=== PATIENT | female | born 1965 | race Caucasian/White ===

== ENCOUNTER 2018-05-26 21:26 | Emergency (ER) | payer BC, SELFPAY ==
[2018-05-26 21:33] VITALS: BP 139/94; PULSE 91; RESP 14; TEMP 36.3; O2SAT 98; BMI 28.3
--- NOTE | 2018-05-26 21:36 | DI.RAD.S_ITS ---
PROCEDURE: XR FINGER LT MIN 2V INDICATIONS: fall TECHNIQUE: AP hand, 2 views of the ring finger(s) acquired. COMPARISON: None. FINDINGS: Bones: Comminuted, articulating fracture base of the fourth middle phalanx. Mild displacement of the dorsal fracture fragment. No suspicious bony lesions. Soft tissues: No suspicious soft tissue calcifications. IMPRESSION: Fracture base fourth middle phalanx articulating with the PIP joint. Dictated by: Matt Sunshine M.D. on 05/27/2018 at 7:59 Approved by: Matt Sunshine M.D. on 05/27/2018 at 8:02
--- NOTE | 2018-05-26 21:37 | DI.RAD.S_ITS ---
PROCEDURE: XR ANKLE LT MIN 3V INDICATIONS: fall TECHNIQUE: 3 views of the ankle were acquired. COMPARISON: None. FINDINGS: Bones: Nondisplaced spiral fracture distal fibula. Nondisplaced transverse fracture base of the medial malleolus. The posterior malleolus is not well seen but no fracture is obvious. Ankle mortise is normally aligned. No suspicious bony lesions. Soft tissues: Bilateral soft tissue swelling. No tibiotalar joint effusion. Achilles tendon appears normal. IMPRESSION: Nondisplaced bimalleolar fracture with soft tissue swelling. Dictated by: Matt Sunshine M.D. on 05/27/2018 at 7:57 Approved by: Matt Sunshine M.D. on 05/27/2018 at 7:59
--- NOTE | 2018-05-27 02:02 | ED.LOWEXIN ---
HPI - Extremity Injury (Lower) General Chief Complaint: Extremity Injury, Lower Stated Complaint: FALL, LEFT ANKLE SWELLING AND PAIN Time Seen by Provider: 05/27/18 01:52 Source: patient Mode of arrival: wheelchair Limitations: no limitations History of Present Illness HPI Narrative: patient is a 52-year-old female who presents with left ankle pain. And left middle finger pain. She fell getting out of her car. She has pain in her ankle laterally and her ring finger is black and blue. She denies any numbness tingling no head injury no other complaints. injury initially happened around 1:00 p.m.. She was weight-bearing but minimally. MD complaint: ankle injury Exacerbating factors: nothing Context: fall Related Data Home Medications Medication Instructions Recorded Confirmed No Known Home Medications 05/26/18 05/26/18 Allergies Allergy/AdvReac Type Severity Reaction Status Date / Time No Known Drug Allergies Allergy Verified 05/26/18 21:36 Review of Systems Review of Systems GENERAL: Denies chills,fever HEENT: Denies throat pain RESPIRATORY: Denies dyspnea, cough, wheezing CARDIOVASCULAR: Denies chest pain, palpitations GASTROINTESTINAL: Denies nausea, vomiting MUSCULOSKELETAL: See HPI SKIN: No rash, no laceration, no pruritus NEUROLOGIC: Denies weakness, dizziness, headache, numbness 8 point review of systems is negative except for those stated above and HPI [facility] Social History Smoking Status: Never smoker Exam Initial Vital Signs Initial Vital Signs: Vital Signs Temperature 97.3 F L 05/26/18 21:33 Pulse Rate 91 H 05/26/18 21:33 Respiratory Rate 14 05/26/18 21:33 Blood Pressure 139/94 H 05/26/18 21:33 Pulse Oximetry 98 05/26/18 21:33 GENERAL: Well-appearing, well-nourished and in no acute distress. CARDIOVASCULAR: peripheral pulses in tact, cap refill <2 sec RESPIRATORY: No respiratory distress, speaks in full sentences without difficulty EXTREMITIES: Normal range of motion, no clubbing or edema. Neurovascularly intact NEUROLOGICAL: Cranial nerves II through XII grossly intact. Normal gait and speech. SKIN: Warm, dry, no petechiae, no rashes or lesions. Extrem Left upper extremity: hand (full range of motion, cap refill <2 seconds) Details: ecchymosis Location: of the 4th digit Location: at the middle phalanx and at the distal phalanx Left lower extremity: ankle ( pulse intact) Details: tenderness Location: of the lateral malleolus ( More lateral than medial) and of the medial malleolus and swelling ( minimal swelling); no lacerations, no ecchymosis and achilles tendon exam normal Procedures Orthopedic Splinting/Casting Injury #1: Side: left Lower Extremity Injury Location: ankle Lower Extremity Immobilizer: posterior splint and stirrup splint Additional Comments: splint was applied by 1st nurse and supervised by me neurovascularly intact after. Injury #2: Upper Extremity Injury Location: finger Upper Extremity Immobilizer: aluminum form splint ( Finger splint) Course Orders Ordered: ED Orders 05/26/18 21:36 XR finger LT min 2V Stat 05/26/18 21:37 XR ankle LT min 3V Stat Discontinued Medications Hydrocodone Bitart/Acetaminophen (Vicodin Prepack) 1 bottle MISC SEEINSTR ONE Stop: 05/27/18 03:04 Last Admin: 05/27/18 03:21 Dose: 1 bottle Vital Signs - 8 hr 05/27/18 03:45 Temperature 97.6 F Pulse Rate 65 Respiratory Rate 18 Blood Pressure 144/93 H Pulse Oximetry 93 MDM - Extremity Injury (Lower) Imaging Data left ankle x-ray: Attestation: I personally reviewed and interpreted this imaging study as follows: My impression: comminuted distal fibular fracture with minimal displacement, small medial malleoli fracture mortise stable left 4th finger x-ray: Attestation: I personally reviewed and interpreted this imaging study as follows: My impression: fracture at the PIP with minimal displacement Discharge Plan Departure Patient Disposition: Home, Self-Care Clinical Impression: Ankle fracture, left Discharge Date/Time: 05/27/18 03:15 Interventions: ED Discharge Assessment Last Done: 05/27/18 03:45 Instructions: Ankle Fracture Activity Restrictions/Additional Instructions: *You have been diagnosed with left ankle and finger fracture *What to do: no weight-bearing on left foot, keep the splint on at all times, elevate, ice *Continue to take medications as directed 1 and [place] every 6 hr if needed for severe pain *Follow up with your primary care provider in 2-3 days, call Orthopedics tomorrow to schedule appointment this week *Return to ER if you should have numbness, tingling, increased pain or any new, worsening or concerning symptomse follow-up appoint CONTROLLED SUBSTANCE DISCHARGE (Narcotoic/benzodiazepine/Flexeril/Phenergan) 1. You have been prescribed narcotic medications, it does have acetaminophen/Tylenol/paracetamol in it so do not take extra Tylenol or Tylenol containing products 2. Please understand that we cannot provide further refills of narcotics, benzodiazepines or controlled substances through the ED and her pain management will need to be through your provider. 3. While on these medications you cannot drive or operate heavy machinery. 4. You cannot sign legal documents or perform any duties such as this. 5. As long as you're taking opiate pain medications he should also be taking a stool softener such as Colace, Dulcolax, MiraLAX or prune juice, to help avoid constipation. Prescriptions: No Action No Known Home Medications RF: 0 Referrals: [facility] [Provider Group]
[2018-05-27] MEDS: HYDROCODONE/ACET 5/325 PREPACK 1 BOTTLE MISC (03:21)
[2018-05-27 03:45] VITALS: BP 144/93; PULSE 65; RESP 18; TEMP 36.4; O2SAT 93
== END 2018-05-27 03:15 | disposition home or self-care (01) ==
PROVIDERS: Emergency Provider Emergency Medicine
DX: S82.892A Other fracture of left lower leg, initial encounter for closed fracture (principal); W17.89XA Other fall from one level to another, initial encounter
CPT/HCPCS: 73140; 73610; 99282; 99284

== ENCOUNTER 2021-02-23 16:44 | Inpatient (IN) | payer BC, SELFPAY ==
[2021-02-23] VITALS (7 sets, daily range): BP systolic 133–176; BP diastolic 66–92; PULSE 57–72; RESP 15–19; TEMP 36.6–37.6; O2SAT 88–96; BMI 28.7; BMI 29.7
[2021-02-23 17:31] LABS: Add Manual Diff / Slide Review NO; Basophils Absolute Auto 0 /uL (0-100); Basophils Percent Auto 0.3 % (0-2); Eosinophils Absolute Auto 0 /uL (0-450); Eosinophils Percent Auto 0.1 % (2-4); Hematocrit 44.2 % (36-46); Hemoglobin 14.8 g/dL (12.0-16.0); Lymphocytes Absolute Auto 700 /uL (1100-4500); Lymphocytes Percent Auto 5.8 % (25-40); Mean Corpuscular HGB Conc 33.4 % (30-36); Mean Corpuscular Hemoglobin 30.6 PG (26-34); Mean Corpuscular Volume 91.5 fL (80-100); Monocytes Absolute Auto 900 /uL (0-900); Monocytes Percent Auto 7.7 % (3-14); Neutrophils Absolute Auto 9900 /uL (1500-7000); Neutrophils Percent Auto 86.1 % (50-75); Platelet Count 202 X10^3/uL (150-400); Red Blood Cell Count 4.83 X10^6/uL (4.0-5.2); Red Cell Distribution Width 13.8 % (11.6-14.8); White Blood Cell Count 11.5 X10^3/uL (4.5-11.0)
[2021-02-23 18:08] LABS: Prothrombin Time 11.9 SECONDS (10.1-12.7)
[2021-02-23 18:11] LABS: PTT Partial Thromboplastin Tim 31 SECONDS (26.4-36.2)
--- NOTE | 2021-02-23 18:31 | ED_ITS ---
HPI - General Adult General Chief complaint: Abdominal Pain Stated complaint: abdominal pains, thinks Appendicitis Time Seen by Provider: 02/23/21 18:00 Source: patient Mode of arrival: Wheelchair Limitations: no limitations History of Present Illness HPI narrative: Patient is a 55-year-old female here for evaluation of approximately 24 hours of bilateral upper abdominal discomfort. She describes it as a cramping/burning/pain sensation. She has had nausea and vomiting. No urinary symptoms. No diarrhea. No recent travel. No recent antibiotics. Has never had anything like this in the past. Has not tried anything for symptoms prior to arrival. He is concerned about appendicitis. Related Data Home Medications Medication Instructions Recorded Confirmed No Known Home Medications 05/26/18 05/26/18 Allergies Allergy/AdvReac Type Severity Reaction Status Date / Time No Known Drug Allergies Allergy Verified 02/23/21 16:51 Review of Systems Constitutional Constitutional: Denies fatigue, Denies fever(s) and Denies headache(s) Eyes Eyes: Denies change in vision ENT Ears, Nose, Mouth, and Throat: Denies headache(s) and Denies sore throat Cardiovascular Cardiovascular: Denies chest pain and Denies dyspnea Respiratory Respiratory: Denies dyspnea Gastrointestinal Gastrointestinal: Reports abdominal pain, Denies change in bowel habits, Denies constipation, Denies diarrhea, Reports nausea and Reports vomiting Genitourinary Genitourinary: Denies dysuria Genitourinary: Denies dysuria and Denies vaginal discharge Musculoskeletal Musculoskeletal: Denies arthralgias and Denies myalgias Integumentary/Breasts Skin/Breast: Denies lesions and Denies rash Neurologic Neurologic: Denies behavioral changes and Denies headache(s) Psychiatric Psychiatric: Denies behavioral changes Endocrine Endocrine: Denies fatigue Hematologic/Lymphatic On Anticoagulants: No Allergic/Immunologic Allergic/Immunologic: Denies urticaria Patient History Medical History Myotonic dystrophy Pneumonia Social History Smoking Status: Never smoker Smoking Status: Never smoker alcohol intake frequency: holidays/special occasions only Substance Use Type: does not use Exam Initial Vital Signs Initial Vital Signs: Vital Signs Temperature 97.9 F 02/23/21 16:50 Pulse Rate 57 L 02/23/21 16:50 Respiratory Rate 15 02/23/21 16:50 Blood Pressure 176/77 H 02/23/21 16:50 Pulse Oximetry 94 02/23/21 16:50 Const General: cooperative, comfortable, well developed and well groomed Limitations: mental status not altered HENGA Head: normal to inspection and normocephalic Eyes General: appearance normal, both eyes and all related structures Resp Effort & Inspection: normal respiratory effort Auscultation: clear to auscultation bilaterally Cardio Rate: regular rate Rhythm: regular rhythm GI Inspection: non-distended Palpation: soft, No guarding and tender (Bilateral upper abdomen) Back/Spine/Pelvis Back: No CVA tenderness Skin Lesions: no lesions Rashes: no rashes Neuro General: patient alert, patient awake and patient oriented x3 Cognition: normal cognition Speech: speech normal Extrem General: normal to inspection and capillary refill normal Psych Appearance: grossly normal and well kempt Scores GCS Pascale coma scale eye opening: Spontaneous Nolan coma scale verbal response: Orientated Nolan coma scale motor response: Obey commands Pascale coma scale total score: 15 Course Orders Ordered: ED Orders 02/23/21 17:00 EKG-12 Lead Stat 02/23/21 17:20 Complete Blood Count AUTO DIFF Stat 02/23/21 17:50 Comprehensive Metabolic Panel Stat Lipase Stat Partial Thromboplastin Time Stat Prothrombin Time INR Stat 02/23/21 18:32 CT abdomen pelvis w con Stat 02/23/21 19:43 Urine Culture Stat Urine Microscopic Stat 02/23/21 20:22 US abdomen limited Stat 02/23/21 22:00 COVID19 - ADMIT ([employer]GER swab/PCR) Stat 02/23/21 22:07 Consult to General Surgery Urgent Sodium Chloride (Normal Saline 0.9%) 1,000 mls @ 125 mls/hr IV CONT FEMI Last Admin: 02/23/21 22:19 Dose: 125 mls/hr Documented by: JANET Morphine Sulfate (Morphine 2 Mg/Ml Inj) 2 mg IV Q4HR PRN PRN Reason: Pain, Mild (1-3) Last Admin: 02/23/21 22:20 Dose: 2 mg Documented by: JANET Ondansetron HCl (Ondansetron 4 Mg/2 Ml Inj) 4 mg IV Q4HR PRN PRN Reason: Nausea And Vomiting Discontinued Medications Sodium Chloride (Normal Saline 0.9%) 1,000 mls @ 1,000 mls/hr IV BOLUS ONE Stop: 02/23/21 19:31 Last Infusion: 02/23/21 20:28 Dose: 0 mls/hr Documented by: Admin: 02/23/21 19:08 Dose: 1,000 mls/hr Documented by: ILDA Piperacillin/Tazobactam/Dextrose (Zosyn) 3.375 gm in 50 mls @ 100 mls/hr IV NOW ONE Stop: 02/23/21 22:36 Last Admin: 02/23/21 22:19 Dose: 100 mls/hr Documented by: JANET Vital Signs Vital signs: Vital Signs - 8 hr 02/23/21 16:50 02/23/21 19:34 02/23/21 20:49 Temperature 97.9 F Pulse Rate 57 L 72 Respiratory Rate 15 Blood Pressure 176/77 H 176/92 H Pulse Oximetry 94 95 88 L 02/23/21 20:51 Temperature Pulse Rate 66 Respiratory Rate Blood Pressure 152/71 H Pulse Oximetry 92 Medical Decision Making Lab Data Lab results reviewed: Yes I reviewed the patient's lab results. Result diagrams: 02/23/21 17:20 02/23/21 17:50 Labs: Lab Results 02/23/21 02/23/21 02/23/21 Range/Units 17:20 17:50 17:50 WBC 11.5 H (4.5-11.0) X10^3/uL RBC 4.83 (4.0-5.2) X10^6/uL Hgb 14.8 (12.0-16.0) g/dL Hct 44.2 (36-46) % MCV 91.5 (80-100) fL MCH 30.6 (26-34) PG MCHC 33.4 (30-36) % RDW 13.8 (11.6-14.8) % Plt Count 202 (150-400) X10^3/uL Neut % (Auto) 86.1 H (50-75) % Lymph % (Auto) 5.8 L (25-40) % [place] % (Auto) 7.7 (3-14) % Eos % (Auto) 0.1 L (2-4) % Baso % (Auto) 0.3 (0-2) % Neut # (Auto) 9900 H (4938-0425) /uL Lymph # (Auto) 700 L (9456-9864) /uL Fountain # (Auto) 900 (0-900) /uL Eos # (Auto) 0 (0-450) /uL Baso # (Auto) 0 (0-100) /uL PT 11.9 (10.1-12.7) SECONDS INR 1.0 (0.9-1.3) APTT 31 (26.4-36.2) SECONDS Sodium 142 (137-145) mmol/L Potassium 3.6 (3.4-5.1) mmol/L Chloride 103 (98-107) mmol/L Carbon Dioxide 33 H (22-32) mmol/L BUN 22 H (7-17) mg/dL Creatinine 0.38 L (0.52-1.04) mg/dL Estimated GFR > 60.0 (>60) mL/min BUN/Creatinine Ratio 57.9 H (6-22) Glucose 123 H (70-100) mg/dL Calcium 10.8 H (8.4-10.2) mg/dL Total Bilirubin 0.7 (0.2-1.3) mg/dL AST 50 H (14-36) IU/L ALT 51 H (<35) IU/L Alkaline Phosphatase 73 (38-126) U/L Total Protein 7.5 (6.3-8.2) g/dL Albumin 4.2 (3.5-5.0) g/dL Globulin 3.3 (1.7-4.1) g/dL Albumin/Globulin Ratio 1.3 (1.0-2.8) Lipase 47 (23-300) U/L Urine RBC (0-5/HPF) Urine WBC (0-5/HPF) Ur Squamous Epith Cells (0-5/HPF) Amorphous Sediment Urine Bacteria (None) Urine Mucus (Negative) Ur Culture Indicated? 02/23/21 Range/Units 19:43 WBC (4.5-11.0) X10^3/uL RBC (4.0-5.2) X10^6/uL Hgb (12.0-16.0) g/dL Hct (36-46) % MCV (80-100) fL MCH (26-34) PG MCHC (30-36) % RDW (11.6-14.8) % Plt Count (150-400) X10^3/uL Neut % (Auto) (50-75) % Lymph % (Auto) (25-40) % [place] % (Auto) (3-14) % Eos % (Auto) (2-4) % Baso % (Auto) (0-2) % Neut # (Auto) (1305-1467) /uL Lymph # (Auto) (8627-4860) /uL [place]ountain # (Auto) (0-900) /uL Eos # (Auto) (0-450) /uL Baso # (Auto) (0-100) /uL PT (10.1-12.7) SECONDS INR (0.9-1.3) APTT (26.4-36.2) SECONDS Sodium (137-145) mmol/L Potassium (3.4-5.1) mmol/L Chloride (98-107) mmol/L Carbon Dioxide (22-32) mmol/L BUN (7-17) mg/dL Creatinine (0.52-1.04) mg/dL Estimated GFR (>60) mL/min BUN/Creatinine Ratio (6-22) Glucose (70-100) mg/dL Calcium (8.4-10.2) mg/dL Total Bilirubin (0.2-1.3) mg/dL AST (14-36) IU/L ALT (<35) IU/L Alkaline Phosphatase (38-126) U/L Total Protein (6.3-8.2) g/dL Albumin (3.5-5.0) g/dL Globulin (1.7-4.1) g/dL Albumin/Globulin Ratio (1.0-2.8) Lipase (23-300) U/L Urine RBC None seen (0-5/HPF) Urine WBC 1-5/hpf (0-5/HPF) Ur Squamous Epith Cells 5-10 /hpf H (0-5/HPF) Amorphous Sediment 1+ Urine Bacteria Moderate (10-30) H (None) Urine Mucus 1+ H (Negative) Ur Culture Indicated? Specimen cultured Point of Care Testing Test Results Negative Urine Dip Bedside Urine Glucose Negative Bedside Urine Bilirubin + 1 Bedside Urine Ketone +/- 5 Urine Specific [place] 1.030 Bedside Urine Occult Blood - Negative Bedside Urine pH 6.0 Bedside Urine Protein - Negative Bedside Urine Urobilinogen +/- 1mg Bedside Urine Nitrite - Negative Bedside Urine Leukocytes - Negative Esterase Point of care testing: Point of Care Testing Test Results Negative Urine Dip Bedside Urine Glucose Negative Bedside Urine Bilirubin + 1 Bedside Urine Ketone +/- 5 Urine Specific [place] 1.030 Bedside Urine Occult Blood - Negative Bedside Urine pH 6.0 Bedside Urine Protein - Negative Bedside Urine Urobilinogen +/- 1mg Bedside Urine Nitrite - Negative Bedside Urine Leukocytes - Negative Esterase Imaging Data CT scan - abdomen/pelvis: Radiologist's Impression: [address] [id number] Scan ReportSigned Patient: Kati Gordon AMR#: [id number]: 1965Acct:[id number]/Sex: 55 / FDate of Service: 02/23/21Loc: EDAccession Number: [id number] Procedure: CT abdomen pelvis w con Ordering Provider: Ernesto Nevarez D.O. PROCEDURE: CT ABDOMEN PELVIS W CON INDICATIONS: Generalized abdominal pain TECHNIQUE: After the administration of intravenous contrast, 5 mm thick sections acquired from the diaphragm to the symphysis. 5 mm coronal and sagittal reformats were acquired. For radiation dose reduction, the following was used: automated exposure control, adjustment of mA and/or kV according to patient size. COMPARISON: CT, PE STUDY (CTA CHEST), 10/31/2015, 3:00. FINDINGS: Image quality: Excellent. ABDOMEN: Lung bases: Lung bases are clear. Heart size is normal. Solid organs: Liver is normal in size and enhancement. Gallbladder is mildly dilated. There is gallbladder wall thickening. Multiple gallstones. Several gallstones at the gallbladder neck. Stranding surrounding the gallbladder. Suspect periportal edema. Biliary system is non dilated. Pancreas enhances normally. Spleen is normal in size and enhancement. Splenic calcified granuloma. No adrenal nodules. Kidneys demonstrate normal size and enhancement, without hydronephrosis. Small simple cysts in the right kidney. Peritoneum and bowel: No small bowel obstruction. Normal appendix. No free fluid or air. Nodes and vessels: No retroperitoneal or mesenteric adenopathy by size criteria. Aorta and inferior vena cava are normal in size. Miscellaneous: Small periumbilical fat containing hernia. PELVIS: Genitourinary: Bladder wall thickness is normal. Fibroid uterus. Miscellaneous: No inguinal hernias or adenopathy. Bones: No suspicious bony lesions. No vertebral body compression fractures. IMPRESSION: 1. Gallbladder wall thickening and surrounding inflammatory change. Multiple gallstones. Findings highly suspicious for acute cholecystis. 2. Normal appendix. No SBO. 3. Nonobstructing left kidney stone. Findings discussed with Dr. Nevarez at time of dictation. Dictated by: Gray Dominguez M.D. on 02/23/2021 at 20:15 Approved by: Gray Dominguez M.D. on 02/23/2021 at 20:55 US - abdomen: Radiologist's Impression: Preliminary read Gallbladder sludge and stones are present. There is gallbladder wall thickening and trace pericholecystic free fluid. This study in conjunction with the CT abdomen/pelvis studies suggest acute cholecystitis. Correlation with physical examination laboratory values is advised. Surgical consultation is advised ECG Data Attestation: I personally reviewed and interpreted this ECG as follows: Prior ECG tracings: not available for review Interpretation: Sinus rhythm Ventricular rate of 58 First degree AV block QRS 180 milliseconds LVH Normal QTC No ST T wave changes MDM Narrative Medical decision making narrative: Approximately 24 hours of bilateral upper abdominal discomfort. She does not have a Hope sign. CT scan does show cholelithiasis and some signs consistent with cholecystitis. Ultrasound also confirmed this. She does have a slight elevation in her AST and ALT. Normal bilirubin. Normal lipase. Still having some discomfort despite the pain medication. Her nausea is better however. I suspect that the gallbladder is most likely the cause of her symptoms. Discussed the case with Dr. Benitez with General surgery who stated that the patient could be admitted to her service and she will come see the patient in the morning for potential surgery. She is advised antibiotics which were prescribed here in the emergency department. Patient was made NPO after midnight. I discussed all this with the patient and her at bedside. They expressed understanding and agreement. Discharge Plan Departure Patient Disposition: Admitted as Observation Clinical Impression: Cholecystitis, Cholelithiasis Admit Date/Time: 02/23/21 22:18 Admit Provider: Manju Swanson
[2021-02-23] MEDS: SODIUM CHLORIDE 0.9% 1,000 ML 1000 ML IV (19:08)
[2021-02-23 19:10] LABS: Alanine Aminotransferase 51 IU/L (<35); Albumin 4.2 g/dL (3.5-5.0); Albumin Globulin Ratio 1.3 (1.0-2.8); Alkaline Phosphatase 73 U/L (38-126); Aspartate Aminotransferase 50 IU/L (14-36); BUN Creatinine Ratio 57.9 (6-22); Bilirubin Total 0.7 mg/dL (0.2-1.3); Blood Urea Nitrogen 22 mg/dL (7-17); Calcium 10.8 mg/dL (8.4-10.2); Carbon Dioxide 33 mmol/L (22-32); Chloride 103 mmol/L (98-107); Estimated Glomerular Filt Rate > 60.0 mL/min (>60); Globulin 3.3 g/dL (1.7-4.1); Glucose 123 mg/dL (70-100); HEMOLYSIS < 15 (0-50); Lipase 47 U/L (23-300); Potassium 3.6 mmol/L (3.4-5.1); Sodium 142 mmol/L (137-145); Total Protein 7.5 g/dL (6.3-8.2)
[2021-02-23 20:21] LABS: RBC Urine None Seen (0-5/HPF)
--- NOTE | 2021-02-23 20:22 | DI.US.S_ITS ---
PROCEDURE: US ABDOMEN LIMITED INDICATIONS: RIGHT UPPER QUADRANT PAIN TECHNIQUE: Real-time scanning was performed of the right upper quadrant, with image documentation. COMPARISON: [facility], CT, CT ABDOMEN PELVIS W CON, 02/23/2021, 19:18. FINDINGS: Liver: Liver is normal in size and homogeneous in echotexture. Gallbladder: Distended. Filled with gallstones and sludge. There is a gallstone measuring at 3 cm which appears to be nonmobile. The gallbladder wall is thickened measuring up to 0.6 mm. There is pericholecystic fluid. Negative sonographic Hope's sign. Biliary ducts: Intrahepatic bile ducts are non-dilated. Extrahepatic bile duct caliber measures 5 mm. Normal is 6-7 mm or less in diameter, or 10 mm or less post-cholecystectomy. Pancreas: Visualized portions of the pancreas are sonographically normal. Spleen: Spleen is normal in size and homogeneous in echotexture. Right kidney: No hydronephrosis. IMPRESSION: Findings most compatible with acute cholecystitis. This report is concordant with the overnight preliminary interpretation. Dictated by: Gray Dominguez M.D. on 02/23/2021 at 22:26 Approved by: Gray Dominguez M.D. on 02/23/2021 at 22:29
[2021-02-23 20:41] LABS: Amorphous Sediment Urine 1+; Bacteria Urine Moderate (10-30); Culture Indicated Urine Specimen Cultured; Mucus Urine 1+ (Negative); Squamous Epithelial Cell Urine 5-10 /HPF (0-5/HPF); WBC Urine 1-5/HPF (0-5/HPF)
[2021-02-23] MEDS: SODIUM CHLORIDE 0.9% 1,000 ML 125 ML IV (22:19)
[2021-02-23] MEDS: PIPERACILLIN-TAZO 3.375 GM/50 ML FROZ.PIGGY IV (22:19)
[2021-02-23] MEDS: MORPHINE 2 MG/ML INJ IV (22:20)
[2021-02-23 22:57] LABS: COVID19 - ADMIT (NP swab/PCR) Negative (Negative)
[2021-02-24] VITALS (14 sets, daily range): BP systolic 122–144; BP diastolic 63–81; PULSE 67–91; RESP 14–25; TEMP 36.5–37.5; O2SAT 91–97; BMI 28.7
--- NOTE | 2021-02-24 | PATH_ITS ---
[facility] Accession Number: [id number] . 01 Material submitted: . gallbladder - GALLBLADDER AND CONTENTS . 02 Diagnosis: Gallbladder, Cholecystectomy: Acute necrotizing cholecystitis with cholelithiasis. Negative for dysplasia and malignancy. [facility] 03/02/2021 1213 Local . 02 Electronically signed: . Aarti Parsons MD, Pathologist NPI- [id number] . 01 Gross description: . Received in formalin, labeled with the patient's name and gallbladder and contents, is a previously disrupted gallbladder, 8.0 x 4.0 x 3.0 cm in aggregate, open at the presumed resection margin, margin inked blue, with calculi within the cystic duct. The gallbladder contains dark brown calculi, 1.0-3.0 cm in greatest dimension, and is covered with velvety green mucosa with yellow specks and thickened wall up to 0.8 cm. Agriculturist sections submitted. . SUMMARY OF SECTIONS: A1. Gallbladder and cystic duct margin, three pieces. A2. Gallbladder, four pieces. ([id number]) /[facility] 02/26/2021 1913 Local . 02 Pathologist provided ICD-10: K81.0 . 02 CPT . 379172 Performed at: 01 [facility] [address], [place], [place] [id number] MD Woody Cherry MD Phone: [phone] Performed at: 02 [facility] [place] [address] [place], [place] [id number] MD Aarti Parsons MD Phone: [phone]
[2021-02-24] MEDS: MORPHINE 2 MG/ML INJ IV (05:35)
[2021-02-24] MEDS: SODIUM CHLORIDE 0.9% 1,000 ML 125 ML IV (06:43)
--- NOTE | 2021-02-24 06:58 | P.HP_ITS ---
History of Present Illness History of Present Illness Date Patient Seen: 02/24/21 Time Patient Seen: 06:59 Chief complaint: abdominal pains, thinks Appendicitis Narrative: This is a 55-year-old woman who came into the ER last evening complaining 24 hours of bilateral upper abdominal discomfort. She described the pain as a cramping/burning/pain sensation. She was having nausea and vomiting, which is now controlled on pain medicine and antiemetic. In the ER she had a CT scan and right upper quadrant ultrasound, which revealed gallstones in her gallbladder, thickening of the gallbladder wall, and trace pericholecystic fluid. Her white blood cell count was slightly elevated 11.5, and her AST/ALT were slightly elevated. Bilirubin was normal. Imaging did not indicate choledocholithiasis. She denies any similar symptoms in the past. She denies any prior episodes of fever or jaundice. She does not take any home medications. Her only surgical history includes an operation for an ovarian cyst removal. She also has a diagnosis of myotonic muscular dystrophy. She takes no medications for this, and is not followed by anyone for this. She says that it only affects her daily living at this point in that she is not strong enough to open a jar or lift anything heavy. She is able to do most of her activities of daily living otherwise, and can take care of herself. She feels much better since she has gotten some pain medication and antibiotics. At this point she has mild pain in the right upper quadrant, and denies nausea/vomiting. ROS: Thirteen system review is otherwise negative other than as mentioned below and in HPI. PE: GENERAL: Alert, comfortable. Appears stated age. Answers questions promptly and appropriately. Vital signs noted. HENT: Normocephalic, atraumatic. Hearing intact. EYES: Conjunctiva pink, sclera white, no periorbital swelling. CARDIOVASCULAR: Regular rate. No pedal edema. RESPIRATORY: Non-tachypneic, breathing comfortably on room air. GASTROINTESTINAL: Abdomen soft, mildly distended, mild to moderate tenderness to palpation in the epigastrium and right upper quadrant, well-healed infraumbilical incision MUSCULOSKELETAL: Equal but decreased tone and mass bilaterally. SKIN: Warm, dry, soft, appropriate color for ethnicity. No other lesions, rashes, or wounds. NEURO: Alert and Oriented X 3. No gross sensory deficits, or cognitive issues. PSYCH: Appropriate affect and mood. Patient History Medical History Myotonic dystrophy Pneumonia Family & Social History Social History: household members spouse Prior Living Arrangements House Safety & Behavioral: Feels Safe in Current Yes Environment Been Physically Hurt or No Threatened By a Person Suicidal Ideation Description None Suicide Plan Description No Plan Tobacco & Substance use: Smoking Status Never smoker alcohol intake never alcohol intake frequency holiday/special occasion Substance Use Type does not use Meds Home Medications and Allergies Home Medications Medication Instructions Recorded Confirmed Type No Known Home Medications 02/23/21 02/23/21 History Allergies Allergy/AdvReac Type Severity Reaction Status Date / Time No Known Drug Allergies Allergy Verified 02/23/21 16:51 Exam Vital Signs (past 8 hours): - 02/23/21 23:10 02/24/21 03:59 Temperature 99.6 F 98.0 F Pulse Rate 64 67 Respiratory Rate 19 16 Blood Pressure 147/82 H 143/78 H Pulse Oximetry 96 97 Oxygen Delivery Method Nasal Cannula Objective Imaging CT scan - abdomen: Radiologist's impression: [address] [id number] ReportSigned Patient: Kati Gordon AMR#: [id number]: 1965Acct:[id number]/Sex: 55 / FDate of Service: 02/23/21Loc: [id number] Number: [id number] Procedure: US abdomen limited Ordering Provider: Ernesto Nevarez D.O. PROCEDURE: US ABDOMEN LIMITED INDICATIONS: RIGHT UPPER QUADRANT PAIN TECHNIQUE: Real-time scanning was performed of the right upper quadrant, with image documentation. COMPARISON: [facility], CT, CT ABDOMEN PELVIS W CON, 02/23/2021, 19:18. FINDINGS: Liver: Liver is normal in size and homogeneous in echotexture. Gallbladder: Distended. Filled with gallstones and sludge. There is a gallstone measuring at 3 cm which appears to be nonmobile. The gallbladder wall is thickened measuring up to 0.6 mm. There is pericholecystic fluid. Negative sonographic Hope's sign. Biliary ducts: Intrahepatic bile ducts are non-dilated. Extrahepatic bile duct caliber measures 5 mm. Normal is 6-7 mm or less in diameter, or 10 mm or less post-cholecystectomy. Pancreas: Visualized portions of the pancreas are sonographically normal. Spleen: Spleen is normal in size and homogeneous in echotexture. Right kidney: No hydronephrosis. IMPRESSION: Findings most compatible with acute cholecystitis. This report is concordant with the overnight preliminary interpretation. Dictated by: Gray Dominguez M.D. on 02/23/2021 at 22:26 Approved by: Gray Dominguez M.D. on 02/23/2021 at 22:[address] [id number] Scan ReportSigned Patient: Kati Gordon AMR#: [id number]: 1965Acct:[id number]/Sex: 55 / FDate of Service: 02/23/21Loc: EDAccession Number: [id number] Procedure: CT abdomen pelvis w con Ordering Provider: Ernesto Nevarez D.O. PROCEDURE: CT ABDOMEN PELVIS W CON INDICATIONS: Generalized abdominal pain TECHNIQUE: After the administration of intravenous contrast, 5 mm thick sections acquired from the diaphragm to the symphysis. 5 mm coronal and sagittal reformats were acquired. For radiation dose reduction, the following was used: automated exposure control, adjustment of mA and/or kV according to patient size. COMPARISON: CT, PE STUDY (CTA CHEST), 10/31/2015, 3:00. FINDINGS: Image quality: Excellent. ABDOMEN: Lung bases: Lung bases are clear. Heart size is normal. Solid organs: Liver is normal in size and enhancement. Gallbladder is mildly dilated. There is gallbladder wall thickening. Multiple gallstones. Several gallstones at the gallbladder neck. Stranding surrounding the gallbladder. Suspect periportal edema. Biliary system is non dilated. Pancreas enhances normally. Spleen is normal in size and enhancement. Splenic calcified granuloma. No adrenal nodules. Kidneys demonstrate normal size and enhancement, without hydronephrosis. Small simple cysts in the right kidney. Peritoneum and bowel: No small bowel obstruction. Normal appendix. No free fluid or air. Nodes and vessels: No retroperitoneal or mesenteric adenopathy by size criteria. Aorta and inferior vena cava are normal in size. Miscellaneous: Small periumbilical fat containing hernia. PELVIS: Genitourinary: Bladder wall thickness is normal. Fibroid uterus. Miscellaneous: No inguinal hernias or adenopathy. Bones: No suspicious bony lesions. No vertebral body compression fractures. IMPRESSION: 1. Gallbladder wall thickening and surrounding inflammatory change. Multiple gallstones. Findings highly suspicious for acute cholecystis. 2. Normal appendix. No SBO. 3. Nonobstructing left kidney stone. Findings discussed with Dr. Nevarez at time of dictation. Dictated by: Gray Dominguez M.D. on 02/23/2021 at 20:15 Approved by: Gray Dominguez M.D. on 02/23/2021 at 20:55 Labs Result Diagrams: 02/23/21 17:20 02/23/21 17:50 Labs: Laboratory Results - last 24 hr 02/23/21 02/23/21 02/23/21 17:20 17:50 17:50 WBC 11.5 H RBC 4.83 Hgb 14.8 Hct 44.2 MCV 91.5 MCH 30.6 MCHC 33.4 RDW 13.8 Plt Count 202 Neut % (Auto) 86.1 H Lymph % (Auto) 5.8 L [place] % (Auto) 7.7 Eos % (Auto) 0.1 L Baso % (Auto) 0.3 Neut # (Auto) 9900 H Lymph # (Auto) 700 L [place] # (Auto) 900 Eos # (Auto) 0 Baso # (Auto) 0 PT 11.9 INR 1.0 APTT 31 Sodium 142 Potassium 3.6 Chloride 103 Carbon Dioxide 33 H BUN 22 H Creatinine 0.38 L Estimated GFR > 60.0 BUN/Creatinine Ratio 57.9 H Glucose 123 H Calcium 10.8 H Total Bilirubin 0.7 AST 50 H ALT 51 H Alkaline Phosphatase 73 Total Protein 7.5 Albumin 4.2 Globulin 3.3 Albumin/Globulin Ratio 1.3 Lipase 47 Urine RBC Urine WBC Ur Squamous Epith Cells Amorphous Sediment Urine Bacteria Urine Mucus Ur Culture Indicated? SARS-CoV-2 (PCR) 02/23/21 02/23/21 19:43 22:00 WBC RBC Hgb Hct MCV MCH MCHC RDW Plt Count Neut % (Auto) Lymph % (Auto) [place] % (Auto) Eos % (Auto) Baso % (Auto) Neut # (Auto) Lymph # (Auto) [place] # (Auto) Eos # (Auto) Baso # (Auto) PT INR APTT Sodium Potassium Chloride Carbon Dioxide BUN Creatinine Estimated GFR BUN/Creatinine Ratio Glucose Calcium Total Bilirubin AST ALT Alkaline Phosphatase Total Protein Albumin Globulin Albumin/Globulin Ratio Lipase Urine RBC None seen Urine WBC 1-5/hpf Ur Squamous Epith Cells 5-10 /hpf H Amorphous Sediment 1+ Urine Bacteria Moderate (10-30) H Urine Mucus 1+ H Ur Culture Indicated? Specimen cultured SARS-CoV-2 (PCR) Negative Assessment & Plan Assessment and plan (1) Cholecystitis: Status: Acute (2) Cholelithiasis: Status: Acute (3) Myotonic dystrophy: Status: Inactive Assessment & Plan narrative: This is a 55-year-old woman with symptomatic cholelithiasis, and acute cholecystitis. I have discussed with her the risks and benefits of surgery. She verbalized concerns about her myotonia, and how it will affect her anesthesia. She has had anesthesia in the past, but it was quite a long time ago. She said they did modify the anesthesia for her myotonia and she did well. I have also discussed with her possibility of treating her with antibiotics if she prefers to avoid surgery at this time. I explained to her that she does have a significant (about 40%) chance of recurrent cholecystitis in the future if we did not remove her gallbladder. However, if she prefers to treat with antibiotics at this time and schedule surgery for later time we may be able to accomplish that. The patient will discuss with her when he arrives this morning, and I will speak with him again. At this point will keep her NPO, continue IV Zosyn, IV pain med and antiemetic as needed. We will repeat labs 8:00 a.m.. COVID-19 COVID-19 status: Negative Result date/Date tested (Pos, Neg/Pending): 02/23/21 Time Spent With Patient Time with patient: 25 - 35 minutes Quality VTE Deep Vein Thrombosis/Pulmonary Embolism Present on Admission: No
[2021-02-24 08:26] LABS: Add Manual Diff / Slide Review NO; Basophils Absolute Auto 100 /uL (0-100); Basophils Percent Auto 0.5 % (0-2); Eosinophils Absolute Auto 0 /uL (0-450); Eosinophils Percent Auto 0.1 % (2-4); Hematocrit 43.9 % (36-46); Hemoglobin 14.7 g/dL (12.0-16.0); Lymphocytes Absolute Auto 500 /uL (1100-4500); Lymphocytes Percent Auto 3.3 % (25-40); Mean Corpuscular HGB Conc 33.6 % (30-36); Mean Corpuscular Hemoglobin 30.6 PG (26-34); Mean Corpuscular Volume 91.3 fL (80-100); Monocytes Absolute Auto 1000 /uL (0-900); Monocytes Percent Auto 7.2 % (3-14); Neutrophils Absolute Auto 12800 /uL (1500-7000); Neutrophils Percent Auto 88.9 % (50-75); Platelet Count 149 X10^3/uL (150-400); Red Blood Cell Count 4.81 X10^6/uL (4.0-5.2); Red Cell Distribution Width 13.8 % (11.6-14.8); White Blood Cell Count 14.3 X10^3/uL (4.5-11.0)
[2021-02-24 08:39] LABS: Alanine Aminotransferase 46 IU/L (<35); Albumin Globulin Ratio 1.3 (1.0-2.8); Alkaline Phosphatase 66 U/L (38-126); Aspartate Aminotransferase 49 IU/L (14-36); Bilirubin Total 0.9 mg/dL (0.2-1.3); Blood Urea Nitrogen 14 mg/dL (7-17); Calcium 9.5 mg/dL (8.4-10.2); Carbon Dioxide 29 mmol/L (22-32); Chloride 104 mmol/L (98-107); Estimated Glomerular Filt Rate > 60.0 mL/min (>60); Globulin 3.1 g/dL (1.7-4.1); Glucose 127 mg/dL (70-100); HEMOLYSIS < 15 (0-50); Lipase 23 U/L (23-300); Potassium 3.3 mmol/L (3.4-5.1); Sodium 141 mmol/L (137-145); Total Protein 7.1 g/dL (6.3-8.2)
--- NOTE | 2021-02-24 09:13 | CM.DANOTE ---
Discharge Planning/Care Management DCP: assessment: case received, EMR reviewed, conferred with BRENNA Koroma and then met with pt. Introduced self and role. Pt is admitted with abdominal pain and likely acute cholecystitis. Surgeon: Camila Swanson Payer: Jessy REID. Pt confirms she has discussed POC options with Dr. Swanson and that consideration is for treatment first with IV antibiotics vs going directly to surgery. Pt's Jimy is at home as they both care for their special needs 28 year old daughter. Pt's mother in law, who also lives in [place], is on her way to their home to stay with the daughter so that Jimy can come to the hospital for further discussion with Dr. Swanson on options and recommendations for treatment. Pt says Dr. Swanson will here later today to meet with them both, between the surgeries she is doing today. P: will be following prn as POC unfolds. (Pt will likely d/c to home setting when stable for same ) Advanced directive, confirm from FAMILY Start: 02/23/21 23:12 Freq: Q24H Status: Active Protocol: Document 02/23/21 23:12 MW (Rec: 02/24/21 03:16 MW [id number]) Advance Directive, confirm on record Time 23:00 Person contacted patient Copy received No CM Discharge Assessment Start: 02/24/21 09:11 Freq: Status: Active Protocol: Document 02/24/21 09:12 ITV (Rec: 02/24/21 09:13 ITV [id number]) Discharge Planning Assessment Advance Directives? No History Provided By Patient,Medical Record Has Patient been admitted in last 30 No days? Prior Living Arrangements House Household Members spouse and Comment 28 year old special needs daughter Independent with ADL's Yes Is patient alert and oriented? Yes
--- NOTE | 2021-02-24 09:57 | PM.PREOP ---
Pre-operative Note COVID-19 COVID-19 status: Negative Result date/Date tested (Pos, Neg/Pending): 02/23/21 Interval Note History & Physical reviewed/Exam performed by Physician: Yes Changes to H&P: No
[2021-02-24] MEDS: POTASSIUM CHLORIDE 40 MEQ in SODIUM CHLORIDE 0.9% 500 ML 130 ML IV (10:48)
--- NOTE | 2021-02-24 12:49 | PC.NURSE ---
Patient has been sleeping for most of the shift. She was given iv morpine earlier on weight shifter and has not required any more pain medication. She does state that her mid r.abdomen is soar to touch, she does fall back to sleep immediately. When visiting patient awake, she has an iv potassium rider infusing for k+ of 3.3. Patient will go down for surgery around 1600 for her lap ashley.
[2021-02-24] MEDS: PIPERACILLIN-TAZO 3.375 GM/50 ML FROZ.PIGGY IV ×2 (13:05→22:35)
[2021-02-24] MEDS: [UNRECOGNIZED DRUG - OTHER] 5 EACH IV (15:14)
[2021-02-24] MEDS: LACTATED RINGERS 1,000 ML 42 ML IV (16:22)
[2021-02-24] MEDS: BUPIVACAINE 0.25% W/ EPI 30 ML VIAL INJ ×2 (16:23→18:16)
--- NOTE | 2021-02-24 18:54 | PM.OP.1 ---
Operative Date/Time/Diagnoses Date of procedure: 02/24/21 Time of procedure: 18:54 Pre-op diagnosis: Acute calculous cholecystitis Post-op diagnosis: other (Gangrenous cholecystitis ) Procedure & Clinicians Procedure: Laparoscopic cholecystectomy Indocyanine green cholangiography Same procedure as scheduled: Yes Indications: Acute cholecystitis, rising WBC Front Office Assistant: Dr. Valente Castanon Surgeon: Manju Swanson Front Office Assistant: Miller Castanon Anesthesia Type: General Operative Notes Findings: Gangrenous gall bladder; pericholecystic fluid Specimen(s): other (Gall bladder and contents) Estimated Blood Loss (mL): 25 Procedure in detail: The patient was brought into the operating room and placed supine on the OR table. Sequential compression devices were placed on both legs and turned on. Appropriate perioperative antibiotics were given prior to the start of surgery. General anesthesia was induced the patient was intubated. The abdomen was prepped and draped in sterile fashion. Surgical time-out was conducted. Local anesthetic was injected under the skin just superior to the umbilicus and a 5 mm vertical incision was made at this site. The umbilical stalk was grasped with a Naa and elevated. A Veress needle was passed through the fascia into proper position. The position was tested with a saline drop test which was appropriate for intra-abdominal Veress needle placement. The abdomen was then insufflated in the usual fashion. There was very limited visualization of within the abdomen because the patient was not paralyzed. Due to her underlying Myotonic Muscular Dystrophy, we were attempting to minimize her paralytic. I was not able to adequately visualize the gall bladder because there was only about 5cm of space between the surface of the abdominal viscera and the anterior abdominal wall. There was thick, edematous omentum covering what was expected to be the gall bladder. I placed a second 5mm port in the right upper quadrant in the usual fashion. Through this port I swept down the edematous omentum. I was able to see the surface of the gall bladder and found that the fundus was necrotic and there was bilious fluid surrounding it and in the right upper quadrant. I asked Dr. Crystal to come in and assist with the operation. At this point, we were considering stapling off the fundus and placing a drain inside the gall bladder. Because of the lack of paralytic I did not think we would be able to get enough room in the abdomen to dissect out the gall bladder. I asked Dr. Castanon to come in and give his opinion. We were able to get some improved visualization by giving a 10th of the typical dose of paralytic. We positioned the patient in steep reverse Trendelenberg and right side up. Due to the gangrenous nature of the gall bladder we elected to go ahead and attempt at least a subtotal cholecystectomy. Dr. Crystal scrubbed in to assist me as the scrub nurse was not adequately skilled for this case. The gall bladder was very large and thickened. A percutaneous needle and syringe were used to drain the gall bladder. About 60mL of very dark bile was drained from the gall bladder. An additional port was placed in a similar fashion in the right upper quadrant and a 10 mm port was placed in the epigastrium. Through the [address] Crystal grasped the gallbladder and attempted to elevate and retract it to the patient's right. It was very thickened and difficult to lift. The size of the gall bladder made it impossible to get enough space to adequately view and dissect it out. There was still a very tight space within to work because of the limited paralytic being given. I pushed down the edematous omentum around the lower gall bladder and infundibulum and we found another necrotic area of gall bladder in the infundibulum. The anesthesiologist placed an OG tube to help decompress the stomach to improve our visualization and widen the space within to work. At this point, we could not adequately view the infundibulum or cystic duct and artery to safely dissect out the gall bladder hilum. The decision was made to work from the top down. With Dr. Crystal retracting the gall bladder, I began dissection at the edge of the liver in a very thick plane of heavily thickened and scarred gall bladder. As we dissected down, we were not able to gain adequate traction on the liver to lift it up. We placed a Raytec in the abdomen to push up on the liver, but could not get adequate uplift due to the very heavy liver, thick gall bladder, and narrow space within which to work. Dr. Castanon scrubbed in to assist. Using the harmonic scalpel, Dr. Castanon created a flap of the gall bladder wall superiorly in order to use it to grasp and elevate the gall bladder and liver. He continued to dissect with the harmonic until the distal half of the fundus was dissected away from the liver. Dr. Crystal continued to grasp the thick flap of gall bladder wall and push up to gain more space and visualization as we moved along. It was very tedious and painstaking work because of the decreased space because of limited paralytic being given, and severe patient disease. The gall bladder wall was quite bloody and continually caused the harmonic to short out. I suctioned free the fluid and blood every time Dr. Castanon pulled out the harmonic to reset it. Dr. Crystal continued to advance his grasp on the upper flap of gall bladder wall and continued to push up on the gall bladder wall and liver to provide as much space as possible for dissection. We were trying very hard to avoid opening because this patient's Myotonia will already create a high risk of respiratory insufficiency and immobility after surgery. An open incision would significantly increase this risk. So we determined to move along laparoscopically as long as we could find a way to safely do that. Once the distal half of the fundus was dissected out, Dr. Castanon used the harmonic to transect through the gall bladder wall circumferentially and amputate the distal half of the gall bladder. A very large, 3cm stone was seen within the gall bladder fundus. I used the suction to remove bile and debris from the gall bladder lumen. The amputated fundus was placed aside, and the remaining gall bladder was grasped and elevated. Getting rid of the large distal half of the fundus gave us more room to lift up the remainder of the gall bladder and better evaluate the infundibulum and hilum. Dr. Crystal grasped the remaining gall bladder fundus and lifted it up towards the abdominal wall. This did provide much better visualization of the gall bladder hilum. There was dense edematous omentum adherent to the triangle of Calot. I pushed this down gently with the suction and we were able to vaguely view the outline of the cystic duct and artery, although they were socked in with dense adhesions and edematous fat tissue. At this point we switched the camera setting to perform indocyanine cholangiography. I was able to see the cystic duct without any other ductal structures nearby. The common bile duct was not easily seen, but appeared to be away from the area of dissection. We switched back to white light. At this point, Dr. Crystal retracted upward on the dense gall bladder wall as I continued to dissect using the [place] dissector until the cystic duct and artery were visible as separate structures. We still did not have enough room to place clips across the duct and artery. Dr. Castanon then continued to take down the remainder of the gall bladder fundus with the harmonic scalpel. Once the gall bladder was free from the fossa Dr. Crystal was able to elevated it enough to create enough length on the cystic artery to clip it. I placed three 1cm clips on the patient's side of the artery and a single clip on the gall bladder side of the artery, and divided it with endoshears. I then placed two 2-0 PDS Endoloops on the cystic duct. There were large stones in the infundibulum pushing down on the junction with the cystic duct. I milked those out of the infundibulum as much as possible in order to have room to place the Endoloops. Two Endoloops were then placed on the cystic duct just below its junction with the infundibulum and cinched down snuggly. I then divided the infundibulum, leaving enough tissue to above the Endoloops for them to remain secure. At this point, the two portions of gall bladder and all contents were placed into an endocatch bag. The gall bladder was too large to bring the davis through the epigastric port without significantly enlarging the incision. We increased the epigastric incision to 2cm, and brought the opening of the bag through the abdominal wall. Dr. Castanon then broke up the gall bladder into pieces as Dr. Crystal elevated the endocatch bag and I suctioned out the copious bile and blood to maintain visualization. Once a large portion of the gall bladder and broken stones were removed, Dr. Castanon was then able to bring the bag out of the abdomen. The gall bladder and contents were then passed off the table. The wound was irrigated, and then the epigastric port was replaced and secured with penetrating towel clamps. We then re-insufflated and I took another look inside the abdomen. The Raytec was removed. I irrigated and suctioned clean any remaining blood or fluid on the lateral side of the liver and in the subhepatic space. A 19 round Steven drain was placed through the right lateral port site and positioned in the subhepatic space. It was secured to the skin with 3-0 Nylon suture. There was no active bleeding or leaking of bile from the gallbladder fossa or from the clipped stumps of the cystic duct and artery. Additional local anesthetic was infiltrated into the port sites for a total of 60 mL of 0.25% Marcaine for the case. The epigastric port site was closed with 0 Vicryl suture. The skin of the epigastric site was closed with jalyn. The remaining port sites were closed with 4-0 Monocryl in the skin sealed with Dermabond. This concluded the procedure. At this point the needle, sponge, and instrument counts were correct. The gallbladder was passed off the table for pathology. Patient was awakened from anesthesia and extubated. She was transferred to the postanesthesia care unit in stable condition. A 22 modifier is recommended in the coding of this case. The OR time was more than twice the normal operative time required for a laparoscopic cholecystectomy. Two additional surgeons were needed to assist in order to complete the operation safely laparoscopically. The level of risk, surgeon skill required, and difficulty of the case were signficantly increased over the usually cholecystectomy due to the patient's disease and underlying comorbidity. Complications: none Post-operative Condition: stable Disposition: PACU
[2021-02-25] VITALS (7 sets, daily range): BP systolic 99–137; BP diastolic 62–87; PULSE 57–77; RESP 18–36; TEMP 36.3–37.1; O2SAT 91–95
[2021-02-25] MEDS: PIPERACILLIN-TAZO 3.375 GM/50 ML FROZ.PIGGY IV ×4 (03:45→21:10)
[2021-02-25 05:16] LABS: Add Manual Diff / Slide Review NO; Basophils Absolute Auto 0 /uL (0-100); Basophils Percent Auto 0.1 % (0-2); Eosinophils Absolute Auto 0 /uL (0-450); Hematocrit 37.9 % (36-46); Hemoglobin 12.5 g/dL (12.0-16.0); Lymphocytes Absolute Auto 300 /uL (1100-4500); Lymphocytes Percent Auto 2.2 % (25-40); Mean Corpuscular HGB Conc 33.1 % (30-36); Mean Corpuscular Hemoglobin 30.3 PG (26-34); Mean Corpuscular Volume 91.7 fL (80-100); Monocytes Absolute Auto 600 /uL (0-900); Monocytes Percent Auto 4.9 % (3-14); Neutrophils Absolute Auto 12200 /uL (1500-7000); Neutrophils Percent Auto 92.8 % (50-75); Platelet Count 154 X10^3/uL (150-400); Red Blood Cell Count 4.13 X10^6/uL (4.0-5.2); Red Cell Distribution Width 13.7 % (11.6-14.8); White Blood Cell Count 13.1 X10^3/uL (4.5-11.0)
[2021-02-25 05:24] LABS: BUN Creatinine Ratio 34.8 (6-22); Blood Urea Nitrogen 16 mg/dL (7-17); Calcium 8.6 mg/dL (8.4-10.2); Carbon Dioxide 31 mmol/L (22-32); Chloride 105 mmol/L (98-107); Estimated Glomerular Filt Rate > 60.0 mL/min (>60); Glucose 131 mg/dL (70-100); HEMOLYSIS < 15 (0-50); Magnesium 1.8 mg/dL (1.6-2.3); Potassium 3.7 mmol/L (3.4-5.1); Sodium 139 mmol/L (137-145)
[2021-02-25] MEDS: ACETAMINOPHEN 325 MG TABLET 650 MG PO ×3 (06:44→18:41)
[2021-02-25] MEDS: ENOXAPARIN 40 MG/0.4 ML SYRINGE SUBCUT (08:37)
[2021-02-25] MEDS: SODIUM,POTASSIUM PHOSPHATES PACKET 1 EACH PO (08:39)
--- NOTE | 2021-02-25 11:20 | P.PN_ITS ---
Subjective Subjective Date Patient Seen: 02/25/21 Time Patient Seen: 08:20 Interval history: The patient is a woman who is postop day 1. From a laparoscopic cholecystectomy. It was quite a difficult operation. She actually feels well. She is not having severe pain. She feels that her strength is normal and she has been up walking to the bathroom. Exam Vital Signs (past 8 hours): - 02/25/21 03:49 02/25/21 07:45 Temperature 97.9 F 97.4 F L Pulse Rate 64 73 Respiratory Rate 28 H 20 Blood Pressure 99/62 134/75 Pulse Oximetry 93 95 Oxygen Delivery Method Nasal Cannula Oxygen Flow Rate 2 Narrative Exam Narrative: Cooperative pleasant woman in no distress. Her lungs are clear. Good respiratory effort. Abdomen is little distended but soft. Dressings are dry and intact. Drainage is serosanguineous. Non bilious. Objective Labs Result Diagrams: 02/25/21 04:49 02/25/21 04:49 Labs: Laboratory Results - last 24 hr 02/25/21 02/25/21 02/25/21 03:45 04:49 04:49 WBC 13.1 H RBC 4.13 Hgb 12.5 Hct 37.9 MCV 91.7 MCH 30.3 MCHC 33.1 RDW 13.7 Plt Count 154 Neut % (Auto) 92.8 H Lymph % (Auto) 2.2 L Faulk % (Auto) 4.9 Eos % (Auto) 0.0 L Baso % (Auto) 0.1 Neut # (Auto) 07918 H Lymph # (Auto) 300 L Faulk # (Auto) 600 Eos # (Auto) 0 Baso # (Auto) 0 Sodium 139 Potassium 3.7 Chloride 105 Carbon Dioxide 31 BUN 16 Creatinine 0.46 L Estimated GFR > 60.0 BUN/Creatinine Ratio 34.8 H Glucose 131 H Calcium 8.6 Phosphorus 2.0 L Magnesium 1.8 Nasal Screen MRSA (PCR) Negative for mrsa [facility] Medical History (Updated 02/24/21 @ 07:05 by Manju Swanson MD) Myotonic dystrophy Pneumonia Social History household members: spouse and children Smoking Status: Never smoker alcohol intake: never Assessment & Plan Post-op Postoperative Procedures: Procedures Operation Date: 02/24/21 16:00 Actual Procedures Side Surgeon p Laparoscopic Cholecystectomy Poss. Open Manju Swanson MD Postoperative day: 1 Postoperative status: doing well Postoperative plan narrative: Continue IV antibiotics today. Leave drain in today. Can probably if she continues to well be discharged tomorrow with out her drain. Quality VTE Deep Vein Thrombosis/Pulmonary Embolism Present on Admission: No
--- NOTE | 2021-02-25 14:25 | CM.DPC ---
DCP: continued: case discussed in Team Rounds with complexity of pt's surgical procedure noted. Dr. Castanon was here to see pt (he was one of 3 surgeons in attendance during the operation). He stated pt was doing well, IV antibiotics would be continued today. Drain would remain in place. If pt continues to do will she will likely be ok for a d/c home tomorrow and with drain removed prior to d/c. Pt has been up in the room today. P: home tomorrow is all goes well. Pt's would pick her up. DCP team will follow prn
[2021-02-25] MEDS: SODIUM CHLORIDE 0.9% FLUSH 10 ML IV (16:56)
--- NOTE | 2021-02-25 22:30 | PC.NURSE ---
shift note: Pt PO day 1 lap ashley, progressing well. oob to br with assistance, BM x2 this shift. lap sites intact, KEVIN drain with scant serous drainage. monitor shows sinus teresa rate in the 50's with 1st degree AVB and a BBB. Neuro exams have remained consistant, alert and cooperative with care, extremity weakness more pronounced as day progressed. using IS appropriately but only achieves 500cc on inspiration. requested RT check NIF - result -40. requiring O2 while in bed, desats to 85% on RM Air. Pain controlled with tylenol to 10.
[2021-02-26] VITALS (7 sets, daily range): BP systolic 124–144; BP diastolic 68–84; PULSE 54–64; RESP 16–22; TEMP 35.8–36.8; O2SAT 92–96
[2021-02-26] MEDS: PIPERACILLIN-TAZO 3.375 GM/50 ML FROZ.PIGGY IV ×2 (03:53→10:20)
[2021-02-26 05:03] LABS: Add Manual Diff / Slide Review NO; Basophils Absolute Auto 0 /uL (0-100); Basophils Percent Auto 0.1 % (0-2); Eosinophils Absolute Auto 0 /uL (0-450); Hematocrit 36.2 % (36-46); Hemoglobin 12.1 g/dL (12.0-16.0); Lymphocytes Absolute Auto 400 /uL (1100-4500); Lymphocytes Percent Auto 4.4 % (25-40); Mean Corpuscular HGB Conc 33.5 % (30-36); Mean Corpuscular Hemoglobin 30.5 PG (26-34); Mean Corpuscular Volume 91.2 fL (80-100); Monocytes Absolute Auto 400 /uL (0-900); Monocytes Percent Auto 4.6 % (3-14); Neutrophils Absolute Auto 8800 /uL (1500-7000); Neutrophils Percent Auto 90.9 % (50-75); Platelet Count 158 X10^3/uL (150-400); Red Blood Cell Count 3.97 X10^6/uL (4.0-5.2); Red Cell Distribution Width 14.1 % (11.6-14.8); White Blood Cell Count 9.7 X10^3/uL (4.5-11.0)
[2021-02-26 05:10] LABS: BUN Creatinine Ratio 46.8 (6-22); Blood Urea Nitrogen 22 mg/dL (7-17); Calcium 8.5 mg/dL (8.4-10.2); Carbon Dioxide 33 mmol/L (22-32); Chloride 104 mmol/L (98-107); Estimated Glomerular Filt Rate > 60.0 mL/min (>60); Glucose 101 mg/dL (70-100); HEMOLYSIS < 15 (0-50); Magnesium 2.2 mg/dL (1.6-2.3); Potassium 3.5 mmol/L (3.4-5.1); Sodium 140 mmol/L (137-145)
[2021-02-26] MEDS: ENOXAPARIN 40 MG/0.4 ML SYRINGE SUBCUT (10:14)
--- NOTE | 2021-02-26 11:34 | PM.DS.1 ---
History of Present Illness History of Present Illness Date Patient Seen: 02/26/21 Time Patient Seen: 11:35 Chief complaint: abdominal pains, thinks Appendicitis Narrative: 55-year-old woman with myotonic dystrophy presented to the emergency room with abdominal pain. Workup demonstrated acute cholecystitis. Discharge Providers Provider Date of admission: 02/23/21 22:18 Discharge Date: 02/26/21 Consults: 02/24/21 19:22 Consult to Discharge Planning Routine Comment: Consult to Respiratory Therapy Evaluate & Treat Comment: Physician Instructions: Evaluate and treat Discharge provider: Valente Crystal MD Summary Hospital Course Discharge Diagnosis: Gangrenous cholecystitis Myotonic dystrophy Hospital Course: Patient underwent a laparoscopic cholecystectomy 02/24, which demonstrated gangrenous cholecystitis. Postoperatively she did well was maintained on IV antibiotic.. At the date of discharge she is tolerant of regular diet. She is afebrile and without leukocytosis. Pain is well controlled with oral medication she is back to her baseline in regards to mobility. Her abdominal drain was removed prior to discharge. Exam Vital Signs (past 8 hours): - 02/26/21 04:02 02/26/21 08:00 Temperature 96.5 F L 97.8 F Pulse Rate 56 L 54 L Respiratory Rate 19 22 Blood Pressure 124/76 140/71 Pulse Oximetry 95 96 Oxygen Delivery Method Room Air Oxygen Flow Rate 2 Narrative Exam Narrative: General adult woman alert oriented no acute distress Abdomen soft appropriately tender to palpation. And drain serosanguineous output. Laparoscopic port incisions are clean dry intact. Objective Labs Result Diagrams: 02/26/21 04:43 02/26/21 04:43 Labs: Laboratory Results - last 24 hr 02/26/21 02/26/21 04:43 04:43 WBC 9.7 RBC 3.97 L Hgb 12.1 Hct 36.2 MCV 91.2 MCH 30.5 MCHC 33.5 RDW 14.1 Plt Count 158 Neut % (Auto) 90.9 H Lymph % (Auto) 4.4 L [place] % (Auto) 4.6 Eos % (Auto) 0.0 L Baso % (Auto) 0.1 Neut # (Auto) 8800 H Lymph # (Auto) 400 L [place] # (Auto) 400 Eos # (Auto) 0 Baso # (Auto) 0 Sodium 140 Potassium 3.5 Chloride 104 Carbon Dioxide 33 H BUN 22 H Creatinine 0.47 L Estimated GFR > 60.0 BUN/Creatinine Ratio 46.8 H Glucose 101 H Calcium 8.5 Phosphorus 2.0 L Magnesium 2.2 PFSH Medical History (Updated 02/24/21 @ 07:05 by Manju Swanson MD) Myotonic dystrophy Pneumonia Social History household members: spouse and children Smoking Status: Never smoker alcohol intake: never Discharge Plan Discharge Plan Patient Disposition: Home Discharge orders & Medications Prescriptions: New docusate sodium [Colace] 100 mg capsule 100 mg PO BID Qty: 30 RF: 0 acetaminophen [Tylenol] 325 mg capsule 650 mg PO QID PRN (Reason: pain) Qty: 60 RF: 0 ibuprofen 200 mg tablet 400 mg PO Q6H Qty: 60 RF: 0 Follow up/Referrals: Manju Swanson MD [Physician] - 2 Weeks Diet/Activity/Treatments Diet: Low-fat Activity: No lifting >20 lbs x 4 weeks. Walking only for exercise for 4 weeks. Skin/Wound/Dressing Care Skin care: Okay to shower but do not submerge the wounds until after follow-up Report to your healthcare provider any signs of infection, such as:: chills, fever, increased pain, unusual drainage and unusual redness Quality VTE Deep Vein Thrombosis/Pulmonary Embolism Present on Admission: No
--- NOTE | 2021-02-26 12:34 | PC.NURSE ---
Addendum entered by Jessica Paige R.N. 02/26/21 16:04: Pt medically released by Dr Crystal, [facility], all belongings sent with pt. and , discharge instructions reviewed, questions answered, PIV previously removed by day shift nurse, pt taken to ER entrance via wheelchair and assisted into private vehicle without any difficulty. No further patient contact at this time. Addendum entered by Alecia Aguirre R.N. 02/26/21 15:26: Dr. Crystal notified that pt remained with low oxygen saturation even after pt was moved to chair and with deep breathing. SPO2 remained at 86% unless pt was consciously deep breathing. Dr. Crystal ordered PT to mobilize pt, but PT has left for the day, this information passed on to oncoming RN, pt reports that she has limited mobility and can only ambulate short distances at home. Pt states that she often uses a small wheelchair for mobility at home. Pt has limited inspiratory effort. Pt encouraged to splint abdomen with pillow and cough, pt with weak coughing effort. Pt told this RN that she usually coughs spontaneously after eating and after laying flat, [facility], who will be speaking to Dr. Crystal. Pt otherwise denies SOB, unable to cough to expectorate, remains with SPO2 85-86% unless deep breathing. Care management notified of potential needs at discharge. Original Note: Dayshift Note: Dr. Crystal contacted and consulted re pt's KEVIN drain removal. Pt's KEVIN drain site with 2 skin sutures above KEVIN drain. Discussed the preference to leave skin sutures in place if possible with drain removal. Dr. Crystal confirmed that this was preferred method of drain removal. KEVIN drain removed per MD order without incident. Gauze dressing with paper tape placed after drain removed, [address] after drain removal. Dr. Crystal also notified that pt had a decreased oxygen saturation to 86% that dario to 92% after pt practiced deep breathing and remained on RA. Pt is currently up in chair, encouraged to deep breathe and use IS to prevent atelectasis.
--- NOTE | 2021-02-26 14:25 | CM.DPC ---
DCP Cont: Met with patient, , and daughter, in the room. Introduced self and role. Discussed primary care provider, for patient is to be discharged home today. Verified with , and gave this manager case management a business card to review, that patient is seeing Mana Rainey at [facility] in [place]. According to nursing, patient's oxygen level had dropped in the high 80s upon exertion, but patient does not use home oxygen. No noted dyspnea. Patient indicated that her baseline at home is FWW, but also uses a wheel-chair if needed. There are no stairs in the house. It is unclear if RT will need to see the patient upon discharge. Gave patient and Medicare Choice List for home health agencies in her area, and let them know that their primary care provider can order this for her, for she may need a follow up appointment with her provider. They stated that they are not sure if they have used home health agencies in the past, maybe for their daughter. There daughter is disabled at home, and they care for her at home. P: Patient should be discharging home today. Gave her resources for home health to pursue with her primary care provider as well. It is unclear if respiratory therapy will need to see patient before discharge. Cathie Estrada RN/Customs Entry Writer
== END 2021-02-26 16:09 | disposition home or self-care (01) | DRG 419 ==
LOC: ED 22:08 → AC 02-24 09:33 → ICU 02-25 11:10 → AC 02-25 11:14 → ICU 02-25 11:41 → AC 02-28 09:49 → ICU 02-28 09:49
PROVIDERS: Emergency Medicine; Admitting Provider Surgery; Emergency Provider Emergency Medicine; Referring Provider Emergency Medicine; Visit Provider Surgery
PROC: 0FT44ZZ Resection of Gallbladder, Percutaneous Endoscopic Approach (ICD-10-PCS; CPT 47562; principal; 2021-02-24 16:00)
DX: K80.00 Calculus of gallbladder with acute cholecystitis without obstruction (principal); K82.8 Other specified diseases of gallbladder; G71.11 Myotonic muscular dystrophy; Z20.822 Contact with and (suspected) exposure to COVID-19
CPT/HCPCS: 36415; 47563; 74177; 76705; 80048; 80053; 81003; 81015; 81025; 83690; 83735; 84100; 85025; 85610; 85730; 87086; 87635; 87797; 93005; 93010; 94762; 96360; 99222; 99284; C9803; J1100; J1650; J1885; J2250; J2270; J2405; J2543; J2704; J3010; J3480; Q9967

== ENCOUNTER 2022-02-25 18:48 | Inpatient (IN) | payer BC, SELFPAY ==
[2021-02-23 22:42] VITALS: BMI 29.7
[2022-02-25] VITALS (11 sets, daily range): BP systolic 116–152; BP diastolic 69–89; PULSE 67–85; RESP 11–28; TEMP 36.7; O2SAT 90–95; BMI 27.6
--- NOTE | 2022-02-25 19:20 | DI.RAD.S_ITS ---
PROCEDURE: XR CHEST 1V INDICATIONS: sob, sat 89% TECHNIQUE: One view of the chest was acquired. COMPARISON: [facility], , CHEST 1 VIEW, 10/31/2015, 2:18. FINDINGS: Surgical changes and devices: None. Lungs and pleura: Lungs are difficult to accurately assess due to prominently reduced inspiratory volume. No pleural effusions or pneumothorax. Mediastinum: Mediastinal contours appear normal. Heart size is normal. Bones and chest wall: No suspicious bony lesions. Overlying soft tissues appear unremarkable. IMPRESSION: Prominently reduced inspiratory volume, no sign of definite pneumonia or CHF. Dictated by: Herminio Mcdonald M.D. on 02/25/2022 at 20:19 Approved by: Herminio Mcdonald M.D. on 02/25/2022 at 20:20
--- NOTE | 2022-02-25 19:28 | ED.GENADULT ---
HPI - General Adult General Chief complaint: Upper Respiratory Symptoms Stated complaint: Adverse meds reaction Time Seen by Provider: 02/25/22 19:23 Source: patient Mode of arrival: Family Vehicle History of Present Illness HPI narrative: 56-year-old female. History of muscular dystrophy. Approximately 2 weeks ago started to have a cough. No fevers. No chest pain. Approximately 1 week ago was seen at an outside facility where she states that she had a chest x-ray. Was told that there was no pneumonia however was started on prednisone and Levaquin. She has been taking as directed. Today was her 4th day of Levaquin. Yesterday was the last day of the steroid. She states that she has continued to have a cough. It is no longer productive. No fevers. No chest pain. She states that she thinks she potentially has been having an allergic reaction to the medicine as she has not been able to sleep very much for the past 3 days and also is feeling very poorly and having abdominal upset. Related Data Previous Rx's Medication Instructions Recorded docusate sodium 100 mg capsule 100 mg PO BID #30 cap 02/26/21 (Colace) ibuprofen 200 mg tablet 400 mg PO Q6H #60 tab 02/26/21 Allergies Allergy/AdvReac Type Severity Reaction Status Date / Time No Known Drug Allergies Allergy Verified 02/25/22 19:18 Review of Systems Constitutional Constitutional: Denies fever(s) Cardiovascular Cardiovascular: Denies chest pain and Reports dyspnea Respiratory Respiratory: Reports cough and Reports dyspnea Gastrointestinal Gastrointestinal: Reports abdominal pain, Reports nausea and Denies vomiting Genitourinary Genitourinary: Denies dysuria Musculoskeletal Musculoskeletal: Reports system reviewed and no additional complaints, except as documented Integumentary/Breasts Skin/Breast: Reports system reviewed and no additional complaints, except as documented Neurologic Neurologic: Reports system reviewed and no additional complaints, except as documented Hematologic/Lymphatic On Anticoagulants: No Allergic/Immunologic Allergic/Immunologic: Reports system reviewed and no additional complaints, except as documented Patient History Medical History Cholecystitis Cholelithiasis Myotonic dystrophy Pneumonia Surgical History History of cholecystectomy History of removal of ovarian cyst Family History Mother COPD (chronic obstructive pulmonary disease) Daughter Muscular dystrophy, myotonic Father Muscular dystrophy, myotonic Social History household members: spouse and children Smoking Status: Never smoker alcohol intake: never Smoking Status: Never smoker alcohol intake frequency: 0-2 drinks per day Substance Use Type: does not use Exam Initial Vital Signs Initial Vital Signs: Vital Signs Temperature 98.1 F 02/25/22 19:09 Pulse Rate 73 02/25/22 19:09 Respiratory Rate 18 02/25/22 19:09 Blood Pressure 123/69 02/25/22 19:09 Pulse Oximetry 90 L 02/25/22 19:09 Const General: cooperative and comfortable HENMT Head: normal to inspection and normocephalic Resp Effort & Inspection: not labored and tachypneic Auscultation: rhonchi Cardio Rate: regular rate Rhythm: regular rhythm GI Palpation: soft Skin General: no rashes or lesions noted Neuro General: patient alert, patient awake and moves all extremities Extrem General: normal to inspection and capillary refill normal Psych Appearance: grossly normal and well kempt Scores GCS Pascale coma scale eye opening: Spontaneous [place] coma scale verbal response: Orientated [place] coma scale motor response: Obey commands [place] coma scale total score: 15 Course Orders Ordered: ED Orders 02/25/22 19:20 XR chest 1V Stat EKG-12 Lead Stat Measure peak expiratory flow ONCE RT Consult Eval and Treat Now 02/25/22 19:42 COVID19 -Nasal RAPID/Pre-Proc Stat 02/25/22 20:00 Complete Blood Count AUTO DIFF Stat Comprehensive Metabolic Panel Stat Lactate (Lactic Acid) Stat NT-proBNP (BNP-Adult 18+) Stat Procalcitonin Stat Prothrombin Time INR Stat Troponin & CK Cardiac Panel Stat 02/25/22 20:53 CT angio chest PE protocol Stat 02/25/22 21:16 Respiratory Panel (Film Array) Stat Acetaminophen (Acetaminophen 325 Mg Tablet) 650 mg PO Q6HR PRN PRN Reason: Fever/Mild Pain (1-3) Enoxaparin Sodium (Enoxaparin 40 Mg/0.4 Ml Syringe) 40 mg SUBCUT DAILY FEMI Ipratropium [place] (Ipratropium 0.5 Mg/2.5 Ml Neb) 0.5 mg INH RTQ4HR FEMI Naloxone HCl (Naloxone 0.4 Mg/Ml Vial) 0.2 mg IV Q2MIN PRN PRN Reason: Opiate Reversal Ondansetron HCl (Ondansetron 4 Mg/2 Ml Inj) 4 mg IV Q6HR PRN PRN Reason: Nausea And Vomiting Discontinued Medications Budesonide (Budesonide 0.5 Mg/2 Ml Neb) 0.5 mg INH NOW ONE Stop: 02/25/22 23:36 Enoxaparin Sodium (Enoxaparin 40 Mg/0.4 Ml Syringe) 40 mg SUBCUT DAILY [facility] Vital Signs Vital signs: Vital Signs - 8 hr 02/25/22 19:09 02/25/22 19:42 02/25/22 20:00 Temperature 98.1 F Pulse Rate 73 77 85 Respiratory Rate 18 22 28 H Blood Pressure 123/69 Pulse Oximetry 90 L 94 95 02/25/22 20:15 02/25/22 20:30 02/25/22 21:00 Temperature Pulse Rate 69 68 68 Respiratory Rate 11 L 18 17 Blood Pressure 116/73 Pulse Oximetry 93 93 94 02/25/22 21:30 02/25/22 22:00 02/25/22 22:30 Temperature Pulse Rate 70 71 75 Respiratory Rate 17 11 L 27 H Blood Pressure Pulse Oximetry 95 94 94 Medical Decision Making Lab Data Lab results reviewed: Yes I reviewed the patient's lab results. Result diagrams: 02/25/22 20:00 02/25/22 20:00 Labs: Lab Results 02/25/22 02/25/22 02/25/22 Range/Units 19:42 20:00 20:00 WBC 5.4 (4.5-11.0) X10^3/uL RBC 5.30 H (4.0-5.2) X10^6/uL Hgb 16.2 H (12.0-16.0) g/dL Hct 47.9 H (36-46) % MCV 90.4 (80-100) fL MCH 30.6 (26-34) PG MCHC 33.9 (30-36) % RDW 14.4 (11.6-14.8) % Plt Count 179 (150-400) X10^3/uL Neut % (Auto) 68.1 (50-75) % Lymph % (Auto) 21.5 L (25-40) % [place] % (Auto) 9.6 (3-14) % Eos % (Auto) 0.5 L (2-4) % Baso % (Auto) 0.3 (0-2) % Neut # (Auto) 3700 (5919-2567) /uL Lymph # (Auto) 1200 (8768-8580) /uL [place] # (Auto) 500 (0-900) /uL Eos # (Auto) 0 (0-450) /uL Baso # (Auto) 0 (0-100) /uL PT 12.7 (10.1-12.7) SECONDS INR 1.1 (0.9-1.3) Sodium (137-145) mmol/L Potassium (3.4-5.1) mmol/L Chloride (98-107) mmol/L Carbon Dioxide (22-32) mmol/L BUN (7-17) mg/dL Creatinine (0.52-1.04) mg/dL Estimated GFR (>60) mL/min BUN/Creatinine Ratio (6-22) Glucose (70-100) mg/dL Lactate (0.7-2.1) mmol/L Calcium (8.4-10.2) mg/dL Total Bilirubin (0.2-1.3) mg/dL AST (14-36) IU/L ALT (<35) IU/L Alkaline Phosphatase (38-126) U/L Total Creatine Kinase (30-135) U/L CK-MB (CK-2) CK-MB (CK-2) Rel Index Troponin I (0.01-0.034) ng/mL NT-Pro-B Natriuret Pep (<125) pg/mL Total Protein (6.3-8.2) g/dL Albumin (3.5-5.0) g/dL Globulin (1.7-4.1) g/dL Albumin/Globulin Ratio (1.0-2.8) Procalcitonin (<0.5) ng/mL Chlamy pneumoniae PCR (Not Detect) Adenovirus (PCR) (Not Detect) B. pertussis DNA (PCR) (Not Detecte) B.parapertussis DNA PCR (Not Detecte) Coronavirus OC43 (PCR) (Not Detect) Coronavirus HKU1 (PCR) (Not Detect) Coronavirus 229E (PCR) (Not Detect) SARS-CoV-2 (PCR) Negative (Negative) Coronavirus NL63 (PCR) (Not Detect) Human Metapneumovir PCR (Not Detect) Influenza Type A (PCR) (Not Detect) Influenza Type B (PCR) (Not Detect) M. pneumoniae (PCR) (Not Detect) Parainfluenza 1 (PCR) (Not Detect) Parainfluenza 2 (PCR) (Not Detect) Parainfluenza 3 (PCR) (Not Detect) Parainfluenza 4 (PCR) (Not Detect) RSV (PCR) (Not Detect) Entero/Rhino (PCR) (Not Detect) 02/25/22 02/25/22 02/25/22 Range/Units 20:00 20:00 20:00 WBC (4.5-11.0) X10^3/uL RBC (4.0-5.2) X10^6/uL Hgb (12.0-16.0) g/dL Hct (36-46) % MCV (80-100) fL MCH (26-34) PG MCHC (30-36) % RDW (11.6-14.8) % Plt Count (150-400) X10^3/uL Neut % (Auto) (50-75) % Lymph % (Auto) (25-40) % [place] % (Auto) (3-14) % Eos % (Auto) (2-4) % Baso % (Auto) (0-2) % Neut # (Auto) (7707-6337) /uL Lymph # (Auto) (1421-9510) /uL [place] # (Auto) (0-900) /uL Eos # (Auto) (0-450) /uL Baso # (Auto) (0-100) /uL PT (10.1-12.7) SECONDS INR (0.9-1.3) Sodium 139 (137-145) mmol/L Potassium 3.7 (3.4-5.1) mmol/L Chloride 103 (98-107) mmol/L Carbon Dioxide 29 (22-32) mmol/L BUN 26 H (7-17) mg/dL Creatinine 0.50 L (0.52-1.04) mg/dL Estimated GFR > 60 (>60) mL/min BUN/Creatinine Ratio 52.0 H (6-22) Glucose 89 (70-100) mg/dL Lactate 1.8 (0.7-2.1) mmol/L Calcium 9.3 (8.4-10.2) mg/dL Total Bilirubin 1.0 (0.2-1.3) mg/dL AST 51 H (14-36) IU/L ALT 52 H (<35) IU/L Alkaline Phosphatase 44 (38-126) U/L Total Creatine Kinase 84 (30-135) U/L CK-MB (CK-2) TNP CK-MB (CK-2) Rel Index TNP Troponin I < 0.012 (0.01-0.034) ng/mL NT-Pro-B Natriuret Pep 121 (<125) pg/mL Total Protein 7.2 (6.3-8.2) g/dL Albumin 4.0 (3.5-5.0) g/dL Globulin 3.2 (1.7-4.1) g/dL Albumin/Globulin Ratio 1.3 (1.0-2.8) Procalcitonin 0.05 (<0.5) ng/mL Chlamy pneumoniae PCR (Not Detect) Adenovirus (PCR) (Not Detect) B. pertussis DNA (PCR) (Not Detecte) B.parapertussis DNA PCR (Not Detecte) Coronavirus OC43 (PCR) (Not Detect) Coronavirus HKU1 (PCR) (Not Detect) Coronavirus 229E (PCR) (Not Detect) SARS-CoV-2 (PCR) (Negative) Coronavirus NL63 (PCR) (Not Detect) Human Metapneumovir PCR (Not Detect) Influenza Type A (PCR) (Not Detect) Influenza Type B (PCR) (Not Detect) M. pneumoniae (PCR) (Not Detect) Parainfluenza 1 (PCR) (Not Detect) Parainfluenza 2 (PCR) (Not Detect) Parainfluenza 3 (PCR) (Not Detect) Parainfluenza 4 (PCR) (Not Detect) RSV (PCR) (Not Detect) Entero/Rhino (PCR) (Not Detect) 02/25/22 Range/Units 21:16 WBC (4.5-11.0) X10^3/uL RBC (4.0-5.2) X10^6/uL Hgb (12.0-16.0) g/dL Hct (36-46) % MCV (80-100) fL MCH (26-34) PG MCHC (30-36) % RDW (11.6-14.8) % Plt Count (150-400) X10^3/uL Neut % (Auto) (50-75) % Lymph % (Auto) (25-40) % [place] % (Auto) (3-14) % Eos % (Auto) (2-4) % Baso % (Auto) (0-2) % Neut # (Auto) (2156-7740) /uL Lymph # (Auto) (5776-0499) /uL [place] # (Auto) (0-900) /uL Eos # (Auto) (0-450) /uL Baso # (Auto) (0-100) /uL PT (10.1-12.7) SECONDS INR (0.9-1.3) Sodium (137-145) mmol/L Potassium (3.4-5.1) mmol/L Chloride (98-107) mmol/L Carbon Dioxide (22-32) mmol/L BUN (7-17) mg/dL Creatinine (0.52-1.04) mg/dL Estimated GFR (>60) mL/min BUN/Creatinine Ratio (6-22) Glucose (70-100) mg/dL Lactate (0.7-2.1) mmol/L Calcium (8.4-10.2) mg/dL Total Bilirubin (0.2-1.3) mg/dL AST (14-36) IU/L ALT (<35) IU/L Alkaline Phosphatase (38-126) U/L Total Creatine Kinase (30-135) U/L CK-MB (CK-2) CK-MB (CK-2) Rel Index Troponin I (0.01-0.034) ng/mL NT-Pro-B Natriuret Pep (<125) pg/mL Total Protein (6.3-8.2) g/dL Albumin (3.5-5.0) g/dL Globulin (1.7-4.1) g/dL Albumin/Globulin Ratio (1.0-2.8) Procalcitonin (<0.5) ng/mL Chlamy pneumoniae PCR Not detected (Not Detect) Adenovirus (PCR) Not detected (Not Detect) B. pertussis DNA (PCR) Not detected (Not Detecte) B.parapertussis DNA PCR Not detected (Not Detecte) Coronavirus OC43 (PCR) Not detected (Not Detect) Coronavirus HKU1 (PCR) Not detected (Not Detect) Coronavirus 229E (PCR) Not detected (Not Detect) SARS-CoV-2 (PCR) Not detected (Negative) Coronavirus NL63 (PCR) Not detected (Not Detect) Human Metapneumovir PCR Not detected (Not Detect) Influenza Type A (PCR) Not detected (Not Detect) Influenza Type B (PCR) Not detected (Not Detect) M. pneumoniae (PCR) Not detected (Not Detect) Parainfluenza 1 (PCR) Not detected (Not Detect) Parainfluenza 2 (PCR) Not detected (Not Detect) Parainfluenza 3 (PCR) Not detected (Not Detect) Parainfluenza 4 (PCR) Not detected (Not Detect) RSV (PCR) Not detected (Not Detect) Entero/Rhino (PCR) Detected H (Not Detect) Imaging Data Chest x-ray: Radiologist's Impression: [place] [address] XRay Report Signed Patient: Kati Gordon MR#: [id number] : 1965 Acct:[id number] Age/Sex: 56 / F Date of Service: 02/25/22 Loc: Accession Number: [id number] ?? Procedure: XR chest 1V Ordering Provider: Ernesto Nevarez D.O. PROCEDURE:? XR CHEST 1V ? INDICATIONS:? sob, sat 89% ? TECHNIQUE:? One view of the chest was acquired.? ? COMPARISON:? [facility], , CHEST 1 VIEW, 10/31/2015, 2:18. ? FINDINGS:? ? Surgical changes and devices:? None.? ? Lungs and pleura:? Lungs are difficult to accurately assess due to prominently reduced inspiratory volume.? No pleural effusions or pneumothorax.? ? Mediastinum:? Mediastinal contours appear normal.? Heart size is normal.? ? Bones and chest wall:? No suspicious bony lesions.? Overlying soft tissues appear unremarkable.? ? IMPRESSION:? Prominently reduced inspiratory volume, no sign of definite pneumonia or CHF. ? ? Dictated by: Herminio Mcdonald M.D. on 02/25/2022 at 20:19 ? ? Approved by: Herminio Mcdonald M.D. on 02/25/2022 at 20:20? CT scan - chest: Radiologist's Impression: [address] [address] [address] Scan Report Signed Patient: Kati Gordon MR#: [id number] : 1965 Acct:[id number] Age/Sex: 56 / F Date of Service: 02/25/22 Loc: ED Accession Number: [id number] ?? Procedure: CT angio chest PE protocol Ordering Provider: Ernesto Nevarez D.O. PROCEDURE:? CT ANGIO CHEST PE PROTOCOL ? INDICATIONS:? Chest pain, shortness of breath, tachycardia ? TECHNIQUE:? After the administration of intravenous contrast, 2 mm thick sections acquired from the pulmonary apices to the posterior costophrenic angles.? 3-dimensional maximum intensity projection (MIP) coronal and sagittal reformats were then acquired through the thorax.? For radiation dose reduction, the following was used:? automated exposure control, adjustment of mA and/or kV according to patient size.? ? COMPARISON:? None. ? FINDINGS:? Image quality:? Excellent.? ? Pulmonary arteries:? Pulmonary arteries are normal in size, and demonstrate no intraluminal filling defects to suggest central pulmonary embolism.? ? Lungs and pleura:? Lungs are abnormal, with dense alveolar consolidation at the posterior mid and lower lungs bilaterally.? There also is mucous inspissation filling multiple posterior lung base bronchi.? No pleural effusions or pneumothorax.? Central and peripheral airways are noted to be somewhat varicoid in morphology in the areas of fluid/mucous content, potentially a manifestation of longstanding bronchiectasis.? The lung parenchyma is densely enhancing, likely related to a degree of inflammation in addition to atelectasis.? ? Mediastinum:? Heart size is normal, without pericardial effusion.? No mediastinal or hilar adenopathy.? Thoracic aorta is normal in caliber and enhancement.? Esophagus is normal in caliber, without hiatal hernia.? ? Bones and chest wall:? No suspicious bony lesions.? Ribs and thoracic spine appear intact throughout.? Thyroid gland contains a 1.5 cm hypodensity on the right.? This likely is a solid nodule.? No axillary or supraclavicular adenopathy.? ? Abdomen:? Visualized upper abdominal solid organs appear normal in the early arterial phase of enhancement.? ? IMPRESSION:? ? 1.? No pulmonary embolus found. ? 2.? Dense alveolar consolidation and inflammation with hyperemia and atelectasis at the mid and lower posterior lung parenchyma, where mucous inspissation and fluid content is seen within mildly varicoid morphologically abnormal airways.? This may indicate chronic bronchiectasis with superimposed pneumonia. ? 3.? 1.5 cm presumably solid nodule right thyroid lobe.? Follow-up elective thyroid ultrasound is recommended for more accurate assessment.? ? ? Dictated by: Herminio Mcdonald M.D. on 02/25/2022 at 21:16 ? ? Approved by: Herminio Mcdonald M.D. on 02/25/2022 at 21:22?? ECG Data Attestation: I personally reviewed and interpreted this ECG as follows: Interpretation: Sinus rhythm Ventricular rate is 72 First-degree AV block MO interval 256 Left axis deviation Right bundle branch block No ST T wave changes MDM Narrative Medical decision making narrative: Chest x-ray shows no definitive signs of CHF. CT scan of the chest shows no pulmonary embolism but does show atelectasis versus pneumonia. COVID is negative. Respiratory PCR positive for rhino virus. She does have a wet sound and cough however this is only apparent when she is coughing otherwise her lung díaz are clear. No wheezing. Low suspicion for CHF based on her presentation. Patient hypoxic to the mid 80s upon arrival here to the ER which improved by oxygen by nasal cannula. She also stated she felt better with this. Suspect that the rhino virus and her underlying muscular dystrophy is the cause of her symptoms. She has completed a 4 day course of Levaquin. Discussed the case with GONZALEZ Rojo the [facility] provider who will admit for further evaluation and treatment. Discussed the need for admission secondary to her hypoxia with the patient and her . They both expressed understanding and agreement. Discharge Plan Departure Patient Disposition: Home Clinical Impression: Rhinovirus infection, Pneumonia, Hypoxia, Thyroid nodule
[2022-02-25 20:12] LABS: COVID19 -Nasal RAPID Negative (Negative)
[2022-02-25 20:29] LABS: Add Manual Diff / Slide Review NO; Basophils Absolute Auto 0 /uL (0-100); Basophils Percent Auto 0.3 % (0-2); Eosinophils Absolute Auto 0 /uL (0-450); Eosinophils Percent Auto 0.5 % (2-4); Hematocrit 47.9 % (36-46); Hemoglobin 16.2 g/dL (12.0-16.0); Lymphocytes Absolute Auto 1200 /uL (1100-4500); Lymphocytes Percent Auto 21.5 % (25-40); Mean Corpuscular HGB Conc 33.9 % (30-36); Mean Corpuscular Hemoglobin 30.6 PG (26-34); Mean Corpuscular Volume 90.4 fL (80-100); Monocytes Absolute Auto 500 /uL (0-900); Monocytes Percent Auto 9.6 % (3-14); Neutrophils Absolute Auto 3700 /uL (1500-7000); Neutrophils Percent Auto 68.1 % (50-75); Platelet Count 179 X10^3/uL (150-400); Red Cell Distribution Width 14.4 % (11.6-14.8); White Blood Cell Count 5.4 X10^3/uL (4.5-11.0)
[2022-02-25 20:36] LABS: INR 1.1 (0.9-1.3); Prothrombin Time 12.7 SECONDS (10.1-12.7)
[2022-02-25 20:39] LABS: Alanine Aminotransferase 52 IU/L (<35); Albumin Globulin Ratio 1.3 (1.0-2.8); Alkaline Phosphatase 44 U/L (38-126); Aspartate Aminotransferase 51 IU/L (14-36); Blood Urea Nitrogen 26 mg/dL (7-17); Calcium 9.3 mg/dL (8.4-10.2); Carbon Dioxide 29 mmol/L (22-32); Chloride 103 mmol/L (98-107); Creatine Kinase 84 U/L (30-135); Estimated Glomerular Filt Rate > 60 mL/min (>60); Globulin 3.2 g/dL (1.7-4.1); Glucose 89 mg/dL (70-100); HEMOLYSIS 21 (0-50); Potassium 3.7 mmol/L (3.4-5.1); Sodium 139 mmol/L (137-145); Total Protein 7.2 g/dL (6.3-8.2)
[2022-02-25 20:40] LABS: Lactate (Lactic Acid) 1.8 mmol/L (0.7-2.1)
[2022-02-25 20:51] LABS: NT-proBNP (BNP-Adult 18+) 121 pg/mL (<125); Troponin I < 0.012 ng/mL (0.01-0.034)
--- NOTE | 2022-02-25 20:53 | DI.CT.S_ITS ---
PROCEDURE: CT ANGIO CHEST PE PROTOCOL INDICATIONS: Chest pain, shortness of breath, tachycardia TECHNIQUE: After the administration of intravenous contrast, 2 mm thick sections acquired from the pulmonary apices to the posterior costophrenic angles. 3-dimensional maximum intensity projection (MIP) coronal and sagittal reformats were then acquired through the thorax. For radiation dose reduction, the following was used: automated exposure control, adjustment of mA and/or kV according to patient size. COMPARISON: None. FINDINGS: Image quality: Excellent. Pulmonary arteries: Pulmonary arteries are normal in size, and demonstrate no intraluminal filling defects to suggest central pulmonary embolism. Lungs and pleura: Lungs are abnormal, with dense alveolar consolidation at the posterior mid and lower lungs bilaterally. There also is mucous inspissation filling multiple posterior lung base bronchi. No pleural effusions or pneumothorax. Central and peripheral airways are noted to be somewhat varicoid in morphology in the areas of fluid/mucous content, potentially a manifestation of longstanding bronchiectasis. The lung parenchyma is densely enhancing, likely related to a degree of inflammation in addition to atelectasis. Mediastinum: Heart size is normal, without pericardial effusion. No mediastinal or hilar adenopathy. Thoracic aorta is normal in caliber and enhancement. Esophagus is normal in caliber, without hiatal hernia. Bones and chest wall: No suspicious bony lesions. Ribs and thoracic spine appear intact throughout. Thyroid gland contains a 1.5 cm hypodensity on the right. This likely is a solid nodule. No axillary or supraclavicular adenopathy. Abdomen: Visualized upper abdominal solid organs appear normal in the early arterial phase of enhancement. IMPRESSION: 1. No pulmonary embolus found. 2. Dense alveolar consolidation and inflammation with hyperemia and atelectasis at the mid and lower posterior lung parenchyma, where mucous inspissation and fluid content is seen within mildly varicoid morphologically abnormal airways. This may indicate chronic bronchiectasis with superimposed pneumonia. 3. 1.5 cm presumably solid nodule right thyroid lobe. Follow-up elective thyroid ultrasound is recommended for more accurate assessment. Dictated by: Herminio Mcdonald M.D. on 02/25/2022 at 21:16 Approved by: Herminio Mcdonald M.D. on 02/25/2022 at 21:22
[2022-02-25 21:16] LABS: Procalcitonin 0.05 ng/mL (<0.5)
[2022-02-25 22:16] LABS: Adenovirus Not Detected (Not Detect); B. parapertussis Not Detected (Not Detecte); Bordetella pertussis Not Detected (Not Detecte); Chlamydophila pneumoniae Not Detected (Not Detect); Coronavirus 229E Not Detected (Not Detect); Coronavirus HKU1 Not Detected (Not Detect); Coronavirus NL 63 Not Detected (Not Detect); Coronavirus OC43 Not Detected (Not Detect); Human Metapneumovirus Not Detected (Not Detect); Human Rhinovirus/Enterovirus Detected (Not Detect); Influenza A Not Detected (Not Detect); Influenza B Not Detected (Not Detect); Mycoplasma pneumoniae Not Detected (Not Detect); Parainfluenza Virus 1 Not Detected (Not Detect); Parainfluenza Virus 2 Not Detected (Not Detect); Parainfluenza Virus 3 Not Detected (Not Detect); Parainfluenza Virus 4 Not Detected (Not Detect); Respiratory Syncytial Virus Not Detected (Not Detect); SARS- CoV-2 Not Detected (Not Detecte)
[2022-02-26] VITALS (11 sets, daily range): BP systolic 95–128; BP diastolic 52–79; PULSE 71–80; RESP 16–19; TEMP 36.2–36.8; O2SAT 91–97; BMI 27.6
--- NOTE | 2022-02-26 | P.HP_ITS ---
History of Present Illness History of Present Illness Date Patient Seen: 02/26/22 Time Patient Seen: 00:01 Chief complaint: Adverse meds reaction Narrative: Kati Gordon is a 56 y.o. 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 She presented to [facility]'s walk in clinic who treated her for a bacterial upper respiratory infection with oral levaquin and prednisone. She started to feel nauseous and never improved. She presents again today with a persistent cough. No longer febrile, but still with shortness of breath, cough and hypoxic in the ED. She showed up with an oxygen saturation of 86 on room air. She describes sputem as clear or cloudy. Denies nausea, chest pain, dysurea, diarrhea or constipation. In the ED, chest xray was negative for an acute process, and CTA of the chest ruled out a PE, Though noted dense alveolar consolidation and inflammation with hyperemia and atelectasis of the mid lower posterior lung parenchyma where mucous inspissation and fluid content is seen within mildly varicoid morpho logically abnormal airways.? This may indicate chronic bronchiectasis with superimposed pneumonia.Patient is afebrile, blood pressure 116/73, heart rate 67, respiratory rate 22, oxygen saturation of 94% on 2 L, she weighs 70.76 kg with a BMI of 27.6. Her white count is normal, she is hemoconcentrated with hemoglobin and hematocrit of 16.2 and 47.9 respectively, platelet count 179, BUN 26, creatinine 0.50 with a EGFR it is normal, AST 51, ALT 52, procalcitonin is negative, COVID-19 PCR is negative but she is positive for rhinovirus. Patient History Medical History Cholecystitis Cholelithiasis Myotonic dystrophy Pneumonia Surgical History History of cholecystectomy History of removal of ovarian cyst Family & Social History Family History Mother COPD (chronic obstructive pulmonary disease) Daughter Muscular dystrophy, myotonic Father Muscular dystrophy, myotonic Social History: household members spouse,children Safety & Behavioral: Feels Safe in Current Yes Environment Been Physically Hurt or No Threatened By a Person Tobacco & Substance use: Smoking Status Never smoker alcohol intake never alcohol intake frequency 0-2 drinks per day Substance Use Type does not use Meds Home Medications and Allergies Home Medications Medication Instructions Recorded Confirmed Type docusate sodium 100 mg capsule 100 mg PO BID #30 cap 02/26/21 03/10/21 Rx (Colace) ibuprofen 200 mg tablet 400 mg PO Q6H #60 tab 02/26/21 03/10/21 Rx Allergies Allergy/AdvReac Type Severity Reaction Status Date / Time No Known Drug Allergies Allergy Verified 02/25/22 19:18 Review of Systems Review of Systems ROS: Yes All systems reviewed with the patient and are negative except as otherwise documented Exam Vital Signs (past 8 hours): - 02/25/22 19:09 02/25/22 19:42 02/25/22 20:00 Temperature 98.1 F Pulse Rate 73 77 85 Respiratory Rate 18 22 28 H Blood Pressure 123/69 Pulse Oximetry 90 L 94 95 02/25/22 20:15 02/25/22 20:30 02/25/22 21:00 Temperature Pulse Rate 69 68 68 Respiratory Rate 11 L 18 17 Blood Pressure 116/73 Pulse Oximetry 93 93 94 02/25/22 21:30 02/25/22 22:00 02/25/22 22:30 Temperature Pulse Rate 70 71 75 Respiratory Rate 17 11 L 27 H Blood Pressure Pulse Oximetry 95 94 94 02/25/22 23:00 Temperature Pulse Rate 67 Respiratory Rate 22 Blood Pressure Pulse Oximetry 94 Oxygen Delivery Method Nasal Cannula Oxygen Flow Rate 2 Narrative Exam Narrative: Gen: Alert, oriented, well-developed 56 y.o. female, NAD HEENT: normocephalic, atraumatic, conjunctiva clear, sclera non-icteric, oral mucosa pink and moist Neck: supple, full ROM, no JVD, trachea is midline Resp: Rales in all 5 lobes, hypoxic CV: RRR, no murmur or rubs Abd: soft, non-tender, normoactive BTs Skin: no lesions or rashes, dry and intact Neuro: Alert and oriented X 4 w/no focal deficits. Speech clear and coherent. Extremities: moves all 4 extremities, is ambulatory, negative Moisés?s sign Psyche: normal mood and affect. Objective Labs Result Diagrams: 02/25/22 20:00 02/25/22 20:00 Labs: Laboratory Results - last 24 hr 02/25/22 02/25/22 02/25/22 19:42 20:00 20:00 WBC 5.4 RBC 5.30 H Hgb 16.2 H Hct 47.9 H MCV 90.4 MCH 30.6 MCHC 33.9 RDW 14.4 Plt Count 179 Neut % (Auto) 68.1 Lymph % (Auto) 21.5 L [place] % (Auto) 9.6 Eos % (Auto) 0.5 L Baso % (Auto) 0.3 Neut # (Auto) 3700 Lymph # (Auto) 1200 [place] # (Auto) 500 Eos # (Auto) 0 Baso # (Auto) 0 PT 12.7 INR 1.1 Sodium Potassium Chloride Carbon Dioxide BUN Creatinine Estimated GFR BUN/Creatinine Ratio Glucose Lactate Calcium Total Bilirubin AST ALT Alkaline Phosphatase Total Creatine Kinase CK-MB (CK-2) CK-MB (CK-2) Rel Index Troponin I NT-Pro-B Natriuret Pep Total Protein Albumin Globulin Albumin/Globulin Ratio Procalcitonin Chlamy pneumoniae PCR Adenovirus (PCR) B. pertussis DNA (PCR) B.parapertussis DNA PCR Coronavirus OC43 (PCR) Coronavirus HKU1 (PCR) Coronavirus 229E (PCR) SARS-CoV-2 (PCR) Negative Coronavirus NL63 (PCR) Human Metapneumovir PCR Influenza Type A (PCR) Influenza Type B (PCR) M. pneumoniae (PCR) Parainfluenza 1 (PCR) Parainfluenza 2 (PCR) Parainfluenza 3 (PCR) Parainfluenza 4 (PCR) RSV (PCR) Entero/Rhino (PCR) 02/25/22 02/25/22 02/25/22 20:00 20:00 20:00 WBC RBC Hgb Hct MCV MCH MCHC RDW Plt Count Neut % (Auto) Lymph % (Auto) [place] % (Auto) Eos % (Auto) Baso % (Auto) Neut # (Auto) Lymph # (Auto) [place] # (Auto) Eos # (Auto) Baso # (Auto) PT INR Sodium 139 Potassium 3.7 Chloride 103 Carbon Dioxide 29 BUN 26 H Creatinine 0.50 L Estimated GFR > 60 BUN/Creatinine Ratio 52.0 H Glucose 89 Lactate 1.8 Calcium 9.3 Total Bilirubin 1.0 AST 51 H ALT 52 H Alkaline Phosphatase 44 Total Creatine Kinase 84 CK-MB (CK-2) TNP CK-MB (CK-2) Rel Index TNP Troponin I < 0.012 NT-Pro-B Natriuret Pep 121 Total Protein 7.2 Albumin 4.0 Globulin 3.2 Albumin/Globulin Ratio 1.3 Procalcitonin 0.05 Chlamy pneumoniae PCR Adenovirus (PCR) B. pertussis DNA (PCR) B.parapertussis DNA PCR Coronavirus OC43 (PCR) Coronavirus HKU1 (PCR) Coronavirus 229E (PCR) SARS-CoV-2 (PCR) Coronavirus NL63 (PCR) Human Metapneumovir PCR Influenza Type A (PCR) Influenza Type B (PCR) M. pneumoniae (PCR) Parainfluenza 1 (PCR) Parainfluenza 2 (PCR) Parainfluenza 3 (PCR) Parainfluenza 4 (PCR) RSV (PCR) Entero/Rhino (PCR) 02/25/22 21:16 WBC RBC Hgb Hct MCV MCH MCHC RDW Plt Count Neut % (Auto) Lymph % (Auto) [place] % (Auto) Eos % (Auto) Baso % (Auto) Neut # (Auto) Lymph # (Auto) [place] # (Auto) Eos # (Auto) Baso # (Auto) PT INR Sodium Potassium Chloride Carbon Dioxide BUN Creatinine Estimated GFR BUN/Creatinine Ratio Glucose Lactate Calcium Total Bilirubin AST ALT Alkaline Phosphatase Total Creatine Kinase CK-MB (CK-2) CK-MB (CK-2) Rel Index Troponin I NT-Pro-B Natriuret Pep Total Protein Albumin Globulin Albumin/Globulin Ratio Procalcitonin Chlamy pneumoniae PCR Not detected Adenovirus (PCR) Not detected B. pertussis DNA (PCR) Not detected B.parapertussis DNA PCR Not detected Coronavirus OC43 (PCR) Not detected Coronavirus HKU1 (PCR) Not detected Coronavirus 229E (PCR) Not detected SARS-CoV-2 (PCR) Not detected Coronavirus NL63 (PCR) Not detected Human Metapneumovir PCR Not detected Influenza Type A (PCR) Not detected Influenza Type B (PCR) Not detected M. pneumoniae (PCR) Not detected Parainfluenza 1 (PCR) Not detected Parainfluenza 2 (PCR) Not detected Parainfluenza 3 (PCR) Not detected Parainfluenza 4 (PCR) Not detected RSV (PCR) Not detected Entero/Rhino (PCR) Detected H Assessment & Plan Assessment & Plan narrative: Kati Gordon is placed into observation overnight for respiratory support. 1. Rhinovirus, acute, present on admission * She is outside the window for antiviral therapy * She will have DuoNeb nebulizers q.4 hours as needed. Pulmicort will be twice daily. * She should be evaluated for home oxygen 2. Myotonic muscular dystrophy, chronic * Monitor for changes in neurological status VTE Prophylaxis: Wells risk score 4.5 Enoxaparin 40 mg subQ once daily Bilateral SCDs Patient is placed into observation as her stay is not expected to exceed 2 midnights. FEN: IV fluids: saline lock, diet: general, labs: CBC, C/BMP, liver enzymes, Mag, PT/INR Consultants None. Dispo: probable discharge to home on home O2 Code status: Full code, as discussed with the patient who identifies spouse, Donis as her surrogate and POA. [X] I have utilized all available immediate resources to obtain, update, or review of the patient's current medications COVID-19 COVID-19 status: Negative Result date/Date tested (Pos, Neg/Pending): 02/26/22 Time Spent With Patient Critical Care time: I spent a total of [] minutes of critical care time on this patient's care today; this time is exclusive of procedural time. Scores Wells' Criteria for PE Clinical signs and symptoms of DVT: Yes PE is #1 Dx or equally likely: No Heart rate > 100: No Immobilization at least 3 days or surg in previous 4 weeks: Yes History of PE or DVT: No Hemoptysis: No Malignancy w/Treatment within 6 months or palliative: No Wells' PE Score total: 4.5 Quality VTE Deep Vein Thrombosis/Pulmonary Embolism Present on Admission: No MIPS - Admit I confirm the patient?s Advance Care Plan is present, Code status is documented, Surrogate decision maker is in patient?s record [If Yes, STOP here]: Yes MIPS - DC The patient has current or prior documentation of left ventricular ejection fraction (LVEF) less than 40%, or moderate or severely depressed left ventricular systolic function.: No
--- NOTE | 2022-02-26 00:47 | PC.NURSE ---
Pt admitted via stretcher, Alert and Oriented, On 4 L NC sating in the low 90's. pt has a wet productive cough. Plan is for patient to be discharge home with home O2.
[2022-02-26] MEDS: IPRATROPIUM 0.5 MG/2.5 ML NEB INH ×6 (05:09→23:29)
[2022-02-26] MEDS: BUDESONIDE 0.5 MG/2 ML NEB INH (05:09)
[2022-02-26 05:29] LABS: Add Manual Diff / Slide Review NO; Basophils Absolute Auto 0 /uL (0-100); Basophils Percent Auto 0.2 % (0-2); Eosinophils Absolute Auto 100 /uL (0-450); Eosinophils Percent Auto 1.5 % (2-4); Hematocrit 48.7 % (36-46); Hemoglobin 16.4 g/dL (12.0-16.0); Lymphocytes Absolute Auto 1900 /uL (1100-4500); Lymphocytes Percent Auto 28.2 % (25-40); Mean Corpuscular HGB Conc 33.6 % (30-36); Mean Corpuscular Hemoglobin 30.6 PG (26-34); Monocytes Absolute Auto 700 /uL (0-900); Monocytes Percent Auto 10.5 % (3-14); Neutrophils Absolute Auto 4000 /uL (1500-7000); Neutrophils Percent Auto 59.6 % (50-75); Platelet Count 168 X10^3/uL (150-400); Red Blood Cell Count 5.35 X10^6/uL (4.0-5.2); Red Cell Distribution Width 14.1 % (11.6-14.8); White Blood Cell Count 6.6 X10^3/uL (4.5-11.0)
[2022-02-26 05:33] LABS: BUN Creatinine Ratio 42.3 (6-22); Blood Urea Nitrogen 22 mg/dL (7-17); Carbon Dioxide 31 mmol/L (22-32); Chloride 102 mmol/L (98-107); Estimated Glomerular Filt Rate > 60 mL/min (>60); Glucose 77 mg/dL (70-100); HEMOLYSIS < 15 (0-50); Magnesium 2.5 mg/dL (1.6-2.3); Sodium 138 mmol/L (137-145)
--- NOTE | 2022-02-26 13:55 | P.PN_ITS ---
Subjective Subjective Interval history: This is a brief update note. This is a 56-year-old female with myotonic dystrophy admitted with acute respiratory failure with hypoxia. She is up to 5 L of oxygen this afternoon. CT evaluation showed possible bronchiectasis with a probable pneumonia. Respiratory panel was positive for rhino virus. Her degree of respiratory failure does not seemingly correlate simply only with rhino virus, although her respiratory failure may be at least impart complicated by her myotonic dystrophy. Patient states that she was given levofloxacin and prednisone at the walk-in clinic, and she did not tolerate these medications well with anxiety, insomnia. These sound like side effects from prednisone. Given CT findings as well as her degree of respiratory failure will added treatment for community-acquired pneumonia as her symptoms have been ongoing for over a week for a possible superimposed bacterial infection. Exam Vital Signs (past 8 hours): - 02/26/22 08:00 02/26/22 09:05 02/26/22 10:30 Temperature 97.7 F Pulse Rate 80 Respiratory Rate 18 Blood Pressure 120/71 Pulse Oximetry 92 93 93 02/26/22 12:45 Temperature 98.2 F Pulse Rate 78 Respiratory Rate 17 Blood Pressure 128/76 Pulse Oximetry 93 Oxygen Delivery Method Nasal Cannula Oxygen Flow Rate 4 Objective Labs Result Diagrams: 02/26/22 05:12 02/26/22 05:12 Labs: Laboratory Results - last 24 hr 02/25/22 02/25/22 02/25/22 19:42 20:00 20:00 WBC 5.4 RBC 5.30 H Hgb 16.2 H Hct 47.9 H MCV 90.4 MCH 30.6 MCHC 33.9 RDW 14.4 Plt Count 179 Neut % (Auto) 68.1 Lymph % (Auto) 21.5 L [place] % (Auto) 9.6 Eos % (Auto) 0.5 L Baso % (Auto) 0.3 Neut # (Auto) 3700 Lymph # (Auto) 1200 [place] # (Auto) 500 Eos # (Auto) 0 Baso # (Auto) 0 PT 12.7 INR 1.1 Sodium Potassium Chloride Carbon Dioxide BUN Creatinine Estimated GFR BUN/Creatinine Ratio Glucose Lactate Calcium Magnesium Total Bilirubin AST ALT Alkaline Phosphatase Total Creatine Kinase CK-MB (CK-2) CK-MB (CK-2) Rel Index Troponin I NT-Pro-B Natriuret Pep Total Protein Albumin Globulin Albumin/Globulin Ratio Procalcitonin Chlamy pneumoniae PCR Adenovirus (PCR) B. pertussis DNA (PCR) B.parapertussis DNA PCR Coronavirus OC43 (PCR) Coronavirus HKU1 (PCR) Coronavirus 229E (PCR) SARS-CoV-2 (PCR) Negative Coronavirus NL63 (PCR) Human Metapneumovir PCR Influenza Type A (PCR) Influenza Type B (PCR) M. pneumoniae (PCR) Parainfluenza 1 (PCR) Parainfluenza 2 (PCR) Parainfluenza 3 (PCR) Parainfluenza 4 (PCR) RSV (PCR) Entero/Rhino (PCR) 02/25/22 02/25/22 02/25/22 20:00 20:00 20:00 WBC RBC Hgb Hct MCV MCH MCHC RDW Plt Count Neut % (Auto) Lymph % (Auto) [place] % (Auto) Eos % (Auto) Baso % (Auto) Neut # (Auto) Lymph # (Auto) [place] # (Auto) Eos # (Auto) Baso # (Auto) PT INR Sodium 139 Potassium 3.7 Chloride 103 Carbon Dioxide 29 BUN 26 H Creatinine 0.50 L Estimated GFR > 60 BUN/Creatinine Ratio 52.0 H Glucose 89 Lactate 1.8 Calcium 9.3 Magnesium Total Bilirubin 1.0 AST 51 H ALT 52 H Alkaline Phosphatase 44 Total Creatine Kinase 84 CK-MB (CK-2) TNP CK-MB (CK-2) Rel Index TNP Troponin I < 0.012 NT-Pro-B Natriuret Pep 121 Total Protein 7.2 Albumin 4.0 Globulin 3.2 Albumin/Globulin Ratio 1.3 Procalcitonin 0.05 Chlamy pneumoniae PCR Adenovirus (PCR) B. pertussis DNA (PCR) B.parapertussis DNA PCR Coronavirus OC43 (PCR) Coronavirus HKU1 (PCR) Coronavirus 229E (PCR) SARS-CoV-2 (PCR) Coronavirus NL63 (PCR) Human Metapneumovir PCR Influenza Type A (PCR) Influenza Type B (PCR) M. pneumoniae (PCR) Parainfluenza 1 (PCR) Parainfluenza 2 (PCR) Parainfluenza 3 (PCR) Parainfluenza 4 (PCR) RSV (PCR) Entero/Rhino (PCR) 02/25/22 02/26/22 02/26/22 21:16 05:12 05:12 WBC 6.6 RBC 5.35 H Hgb 16.4 H Hct 48.7 H MCV 91.0 MCH 30.6 MCHC 33.6 RDW 14.1 Plt Count 168 Neut % (Auto) 59.6 Lymph % (Auto) 28.2 [place] % (Auto) 10.5 Eos % (Auto) 1.5 L Baso % (Auto) 0.2 Neut # (Auto) 4000 Lymph # (Auto) 1900 [place] # (Auto) 700 Eos # (Auto) 100 Baso # (Auto) 0 PT INR Sodium 138 Potassium 4.0 Chloride 102 Carbon Dioxide 31 BUN 22 H Creatinine 0.52 Estimated GFR > 60 BUN/Creatinine Ratio 42.3 H Glucose 77 Lactate Calcium 9.0 Magnesium 2.5 H Total Bilirubin AST ALT Alkaline Phosphatase Total Creatine Kinase CK-MB (CK-2) CK-MB (CK-2) Rel Index Troponin I NT-Pro-B Natriuret Pep Total Protein Albumin Globulin Albumin/Globulin Ratio Procalcitonin Chlamy pneumoniae PCR Not detected Adenovirus (PCR) Not detected B. pertussis DNA (PCR) Not detected B.parapertussis DNA PCR Not detected Coronavirus OC43 (PCR) Not detected Coronavirus HKU1 (PCR) Not detected Coronavirus 229E (PCR) Not detected SARS-CoV-2 (PCR) Not detected Coronavirus NL63 (PCR) Not detected Human Metapneumovir PCR Not detected Influenza Type A (PCR) Not detected Influenza Type B (PCR) Not detected M. pneumoniae (PCR) Not detected Parainfluenza 1 (PCR) Not detected Parainfluenza 2 (PCR) Not detected Parainfluenza 3 (PCR) Not detected Parainfluenza 4 (PCR) Not detected RSV (PCR) Not detected Entero/Rhino (PCR) Detected H [facility] Medical History Cholecystitis Cholelithiasis Myotonic dystrophy Pneumonia Surgical History History of cholecystectomy History of removal of ovarian cyst Family History Mother COPD (chronic obstructive pulmonary disease) Daughter Muscular dystrophy, myotonic Father Muscular dystrophy, myotonic Social History household members: spouse and children Smoking Status: Never smoker alcohol intake: never Assessment & Plan Time Spent With Patient Critical Care time: I spent a total of [] minutes of critical care time on this patient's care today; this time is exclusive of procedural time. Quality VTE Deep Vein Thrombosis/Pulmonary Embolism Present on Admission: No
[2022-02-26] MEDS: AZITHROMYCIN 500 MG in DEXTROSE 5% IN WATER 250 ML IV (17:00)
[2022-02-26] MEDS: cefTRIAXone 1,000 MG in SODIUM CHLORIDE 0.9% 100 ML 200 ML IV (18:40)
[2022-02-27] VITALS (11 sets, daily range): BP systolic 102–120; BP diastolic 57–80; PULSE 66–86; RESP 16–20; TEMP 36.2–36.7; O2SAT 87–98
--- NOTE | 2022-02-27 01:22 | PC.NURSE ---
Addendum entered by Darlin Sesay R.N. 02/27/22 06:24: Pt desats to 88% while conversing with nurse, doesn't appeared to be in any distress and able to bring oxygen level back up to the mid 90's. Addendum entered by Darlin Sesay R.N. 02/27/22 05:15: Pt has been tolerated high flow NC at 4L, sating in the mid 90's. Original Note: PT weaned down to 4L high flow and sating in the mid 90's. will continue to monitor.
[2022-02-27] MEDS: IPRATROPIUM 0.5 MG/2.5 ML NEB INH ×5 (07:35→23:39)
--- NOTE | 2022-02-27 14:03 | PM.PN.1 ---
Subjective Subjective Date Patient Seen: 02/27/22 Time Patient Seen: 14:03 Interval history: This is a 56-year-old female with myotonic dystrophy admitted with acute respiratory failure with hypoxia.? She is up to 5 L of oxygen this afternoon.? CT evaluation showed possible bronchiectasis with a probable pneumonia.? Respiratory panel was positive for rhino virus.? Her degree of respiratory failure does not seemingly correlate simply only with rhino virus, although her respiratory failure may be at least impart complicated by her myotonic dystrophy.?She denies complaints of chest pain, shortness of breath, nausea, vomiting. She states she feels well. Exam Vital Signs (past 8 hours): - 02/27/22 07:36 02/27/22 08:54 02/27/22 11:25 Temperature 97.3 F L 97.5 F L Pulse Rate 78 86 Respiratory Rate 20 18 Blood Pressure 102/57 L 120/80 Pulse Oximetry 93 95 87 L 02/27/22 11:37 Temperature Pulse Rate 82 Respiratory Rate 16 Blood Pressure Pulse Oximetry 89 L Oxygen Delivery Method High Flow Nasal Cannula Oxygen Flow Rate 6 Narrative Exam Narrative: General:? Patient is well developed and well nourished, in no distress at this time. HEENT:? Normocephalic, atraumatic, extraocular muscles intact, oral pharynx is clear and mucous membranes are moist. Neck: supple and symmetric, trachea is midline, no cervical adenopathy. Negative for JVD Chest:? Normal AP diameter and contour without kyphoscoliosis, no tachypnea, equal chest rise bilaterally. Lungs:? slight basilar rales, no wheezing. Cardio:?RRR no m/r/g. Abdomen: S NT ND. No CVA tenderness. Musculoskeletal:? Muscle strength and tone are equal within normal limits, no deformity. Extremities: No edema or joint effusions. No cyanosis or clubbing. Skin:? Pale,? Warm to touch,dry and intact without rashes, ulcerations or petechiae.? Neuro:? Alert and orientated x3,? sensation to touch intact in all extremities, no gross deficits noted of cranial nerves. Psych:? Patient has a well-kept appearance, appropriate affect, mental status attitude thought context and judgment are appropriate for age. Objective Labs Result Diagrams: 02/26/22 05:12 02/26/22 05:12 [facility] Medical History Cholecystitis Cholelithiasis Myotonic dystrophy Pneumonia Surgical History History of cholecystectomy History of removal of ovarian cyst Family History Mother COPD (chronic obstructive pulmonary disease) Daughter Muscular dystrophy, myotonic Father Muscular dystrophy, myotonic Social History household members: spouse and children Smoking Status: Never smoker alcohol intake: never Assessment & Plan Assessment & Plan narrative: This is a 56-year-old female with myotonic dystrophy admitted with acute respiratory failure with hypoxia.? 1. Acute respiratory failure with hypoxia -respiratory panel was positive for rhino virus, the patient had symptoms for over week and her CT scan was negative for PE but it showed a possible pneumonia and possible bronchiectasis as well. -her myotonic dystrophy is likely contributing to her degree of respiratory failure -continue ceftriaxone and azithromycin for treatment of possible superinfection with bacterial pneumonia after rhino virus. Patient did not tolerate oral prednisone as an outpatient with severe anxiety and insomnia. She is agreeable to trial a steroid nebulizers treatment. -goal O2 88-96% while on supplemental O2 given bronchiectasis -if no further improvement consider worsening myotonic dystrophy as the source of her hypoxia. 2. Rhino virus infection with possible bacterial pneumonia - continue antibiotics as noted above with supportive care. 3. Myotonic dystrophy - possibly contributing to degree of respiratory failure. Continue incentive spirometry. Code: Full DVT: Lovenox daily Dispo: Remains inpatient, patient will discharge home though timing is unclear at this time given continued hypoxia. Time Spent With Patient Critical Care time: I spent a total of [] minutes of critical care time on this patient's care today; this time is exclusive of procedural time. Quality VTE Deep Vein Thrombosis/Pulmonary Embolism Present on Admission: No
[2022-02-27] MEDS: cefTRIAXone 1,000 MG in SODIUM CHLORIDE 0.9% 100 ML 200 ML IV (15:16)
--- NOTE | 2022-02-27 15:53 | PC.NURSE ---
pt is on 94% 4L. she just finished her breathing treatment. no pain. IV abx infusing.
[2022-02-27] MEDS: AZITHROMYCIN 500 MG in DEXTROSE 5% IN WATER 250 ML IV (16:05)
[2022-02-27] MEDS: BUDESONIDE 0.5 MG/2 ML NEB INH (20:15)
[2022-02-28] VITALS (10 sets, daily range): BP systolic 91–103; BP diastolic 54–72; PULSE 70–103; RESP 15–20; TEMP 35.7–36.9; O2SAT 90–100
[2022-02-28] MEDS: BUDESONIDE 0.5 MG/2 ML NEB INH ×2 (08:26→19:50)
[2022-02-28] MEDS: ENOXAPARIN 40 MG/0.4 ML SYRINGE SUBCUT (09:10)
[2022-02-28] MEDS: cefTRIAXone 1,000 MG in SODIUM CHLORIDE 0.9% 100 ML 200 ML IV (14:43)
--- NOTE | 2022-02-28 15:15 | PM.PN.1 ---
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 Moved to heated high flow at minimal settings to help with sputum expectoration. She states she feels well, but is miserable with chest PT vest. Exam Vital Signs (past 8 hours): - 02/28/22 08:30 02/28/22 10:30 02/28/22 11:00 Temperature 97.3 F L Pulse Rate 78 82 82 Respiratory Rate 20 20 19 Blood Pressure 91/54 L Pulse Oximetry 92 93 90 L 02/28/22 14:51 Temperature 98.5 F Pulse Rate 76 Respiratory Rate 20 Blood Pressure 100/59 L Pulse Oximetry 90 L Fraction of Inspired Oxygen 60 Oxygen Delivery Method High Flow Nasal Cannula,Heated High Flow Oxygen Flow Rate 35 Narrative Exam Narrative: General:? Patient is well developed and well nourished, in no distress at this time. HEENT:? Normocephalic, atraumatic, extraocular muscles intact, oral pharynx is clear and mucous membranes are moist. Neck: supple and symmetric, trachea is midline, no cervical adenopathy. Negative for JVD Chest:? Normal AP diameter and contour without kyphoscoliosis, no tachypnea, equal chest rise bilaterally. Lungs:? slight basilar rales, R > L today, no wheezing. Cardio:?RRR no m/r/g. Abdomen: S NT ND. No CVA tenderness. Musculoskeletal:? Muscle strength and tone are equal within normal limits, no deformity. Extremities: No edema or joint effusions. No cyanosis or clubbing. Skin:? Pale,? Warm to touch,dry and intact without rashes, ulcerations or petechiae.? Neuro:? Alert and orientated x3,? sensation to touch intact in all extremities, no gross deficits noted of cranial nerves. Psych:? Patient has a well-kept appearance, appropriate affect, mental status attitude thought context and judgment are appropriate for age. 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 1. Acute respiratory failure with hypoxia ?-respiratory panel was positive for rhino virus, the patient had symptoms for over week and her CT scan was negative for PE but it showed a possible pneumonia and possible bronchiectasis as well. -her myotonic dystrophy is likely contributing to her degree of respiratory failure -continue ceftriaxone and azithromycin for treatment of possible superinfection with bacterial pneumonia after rhino virus.? Patient did not tolerate oral prednisone as an outpatient with severe anxiety and insomnia.? She is agreeable to trial a steroid nebulizers treatment. -goal O2 88-96% while on supplemental O2 given bronchiectasis on CT -if no further improvement consider worsening myotonic dystrophy as the source of her hypoxia. -to assist with sputum secretion advanced to heated high flow, nebulized hypertonic saline therapies, and chest PT with vest. She has had a lot of secretions today. Will send sputum culture and fungal culture. -recommend outpatient pulmonology, hopeful to discharge home on less O2 than currently receiving. 2. Rhino virus infection with possible bacterial pneumonia ?- continue antibiotics as noted above with supportive care. 3. Myotonic dystrophy ?- possibly contributing to degree of respiratory failure. Continue incentive spirometry. Code: Full DVT: Lovenox daily Dispo:? Remains inpatient, patient will discharge home though timing is unclear at this time given continued hypoxia. Time Spent With Patient Critical Care time: I spent a total of [] minutes of critical care time on this patient's care today; this time is exclusive of procedural time. Quality VTE Deep Vein Thrombosis/Pulmonary Embolism Present on Admission: No
[2022-02-28] MEDS: SODIUM CHLORIDE 7% (RT/INH) 4 ML NEB INH ×2 (15:30→19:51)
[2022-02-28] MEDS: AZITHROMYCIN 500 MG in DEXTROSE 5% IN WATER 250 ML IV (15:57)
--- NOTE | 2022-02-28 16:55 | CM.DANOTE ---
DCP/Assessment: Reviewed chart. Patient is a 56yr old female admitted to [facility] with Rhinovirus. No PCP listed. Primary payor is out of State [employer]. Met with patient and spouse/Jimy at bedside. Patient with h/o yolanda myoclonic dystrophy and is w/c bound at [facility]. Patient also has 29yr old daughter with same condition that resides in the residence. Spouse at bedside and very attentive. Spouse reports that patient currently does not have PCP? because she has not been sick. Encouraged pateint and spouse to obtain PCP right away. In addition, provided them with information on how to obtain long-term CM services through [employer]. Patient interested in seeing pulm and neuro in future. Patient and spouse aware that patient will need referral from PCP for both. They understood. Patient used to go to clinic in [place] to see Dr. Regan? Spouse will check and see if that office might still be an option for outpatient follow up. Per Dr. Schuster patient can go home once her 02 saturations are reasonable. Patient currently on 6 liters and reports that she does not use home 02. Patient does use DuoNebs and Pulmicort. It is anticipated that patient will be evaluated for home 02 prior to d/c. P: CM team following closely. Patient might be good candidate for home health but currently without PCP. Might be good candidate for [facility] program. ALCIRA Otero Discharge Planning/Care Management CM Discharge Assessment Start: 02/28/22 16:51 Freq: Status: Active Protocol: Document 02/28/22 16:51 KJS (Rec: 02/28/22 16:55 KJS [id number]) Discharge Planning Assessment Assigned Flag Signalman ALCIRA Otero Contact Information Jimy Evan (spouse) # [phone] Advance Directives? No History Provided By Patient,Family Member,Medical Record Prior Living Arrangements House Household Members spouse,children Type of transporation used prior to Relies on Others admit Independent with ADL's No Is patient alert and oriented? Yes Caregiver for Another No DME Already Rented / Owned Wheelchair Comment Patient has all needed DME in the residence. Barriers to Discharge No Comment Patient and spouse would like to return home when medically stable. Provider would like patient requiring less 02. Currently she has been on 6 liters. Discharge Plan Home Transportation Arrangement Spouse Additional Comment Continue to follow closely. Whiteboard Updated in Patient Room with Yes name and ext. # of Flag Signalman Review Status In Process Next Review Type Continued Stay Review
--- NOTE | 2022-02-28 18:23 | PC.NURSE ---
Pt is AxOx4, needs minimum behavioral modification assistant with commode. Pt is on droplet precaution and on high flow oxygen 25L/60%. VSS, except pt can't clear secretion on her own and needs high flow oxygen to maintain SpO2>90. Otherwise, pt eating well and voiding well. In the morning, pt's BP was soft so pt was encouraged to drink more fluid so BP went up over 100s systolic. No other changes.
[2022-03-01] VITALS (18 sets, daily range): BP systolic 94–109; BP diastolic 62–75; PULSE 62–90; RESP 16–20; TEMP 35.9–36.6; O2SAT 87–100
[2022-03-01] MEDS: BUDESONIDE 0.5 MG/2 ML NEB INH ×2 (09:05→21:20)
[2022-03-01] MEDS: SODIUM CHLORIDE 7% (RT/INH) 4 ML NEB INH ×3 (09:05→21:20)
[2022-03-01] MEDS: ENOXAPARIN 40 MG/0.4 ML SYRINGE SUBCUT (09:34)
--- NOTE | 2022-03-01 12:44 | PM.PN.1 ---
Subjective Subjective Interval history: Patient denies that she's ever required supplemental oxygen in the past. She denies any hx of industrial exposures or environmental exposures. 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 She denies ever smoking tobacco or using illicit drugs. Family hx is extensive for myotonic dystrophy. She reports improvement in her sxs with chest physiotherapy. She endorses a weak cough. Exam Vital Signs (past 8 hours): - 03/01/22 05:14 03/01/22 09:00 03/01/22 09:05 Temperature 97.6 F 96.6 F L Pulse Rate 65 74 Respiratory Rate 16 20 Blood Pressure 96/62 96/66 Pulse Oximetry 93 93 87 L 03/01/22 09:06 03/01/22 11:29 Temperature Pulse Rate 90 Respiratory Rate 20 20 Blood Pressure Pulse Oximetry 89 L 95 Fraction of Inspired Oxygen 60 Oxygen Delivery Method Heated High Flow Oxygen Flow Rate 30 Const Other: Patient sitting up in bed upon my entering the room, with heated high-flow nasal cannulae on, and does not appear in respiratory distress Eyes Other: No scleral icterus appreciated Resp Other: Diffuse rhonchi and rales appreciated bilaterally, with diminished breath sounds at the lung bases Cardio Other: RRR, S1 and S2 heart sounds normal, with no extra heart sounds appreciated GI Other: Soft, non-distended, non-tender, bowel sounds present Skin Other: No grossly abnormal skin lesions appreciated Extrem Other: Palpable doralis pedis pulses bilaterally Objective Labs Result Diagrams: 02/26/22 05:12 02/26/22 05:12 [facility] Medical History Cholecystitis Cholelithiasis Myotonic dystrophy Pneumonia Surgical History History of cholecystectomy History of removal of ovarian cyst Family History Mother COPD (chronic obstructive pulmonary disease) Daughter Muscular dystrophy, myotonic Father Muscular dystrophy, myotonic Social History household members: spouse and children Smoking Status: Never smoker alcohol intake: never Assessment & Plan Assessment & Plan narrative: This is a 56-year-old female with a hx of myotonic dystrophy that is admitted with acute respiratory failure with hypoxia, likely secondary to bronchiectasis from long-standing repeat bronchitis/pneumonias due to myotonic dsytrophy. 1. Acute respiratory failure with hypoxia, likely due to exacerbation of underlying bronchiectasis from acute viral/bacterial pneumonia, with bronchiectasis likely from long-standing myotonic dystrophy - Patient is requiring high-flow nasal cannulae to maintain oxygenation, with chest physiotherapy providing help, along with incentive spirometry - Ordered for high-resolution CT scan to further evaluate lung parenchyma, with radiology recommending this be done after patient recovers from this current bout 2. Rhinovirus infection with possible superimposed, bacterial pneumonia ?- IV ceftriaxone and IV azithromycin on-board from February 26, 2022, with respiratory cultures pending - Moving forward, patient will likely need fluoroquinolones for flare-ups 3. Myotonic dystrophy ?- Likely contributing greatly to degree of respiratory failure, as patient's diagphragm and accessory respiratroy muscles are likely weak from long-standing myotonic dystrophy Code: Full Code I have utilized all available immediate resources to obtain, update, or review the patient's current medications. Time Spent With Patient Critical Care time: I spent a total of [] minutes of critical care time on this patient's care today; this time is exclusive of procedural time. Quality VTE Deep Vein Thrombosis/Pulmonary Embolism Present on Admission: No MIPS - Admit I confirm the patient?s Advance Care Plan is present, Code status is documented, Surrogate decision maker is in patient?s record [If Yes, STOP here]: Yes
--- NOTE | 2022-03-01 14:08 | DI.ECHO.S_ITS ---
[facility] +---------+ : : [address] : : : : [id number] : : : : Phone: [phone] Echocardiogram Report + + :Name: EL APARICIO Study Date: 03/02/2022 Height: 63 in : :[facility] ReadingLocation: Weight: 156 lb : : Gender: Female BSA: 1.7 m2 : :: 1965 Age: 56 yrs BP: 109/66 mmHg: :Reason For Study: ASSESS RIGHT-SIDED PRESSURES, PULMONARY : :HYPERTENSION : :Ordering Physician: TYRELL HILTON : : Performed By: Katiuska Mireles : :Referring: TYRELL HILTON MD : + + Interpretation Summary The ejection fraction is estimated to be 55-60%. Diastolic parameters suggest probable normal left ventricular diastolic function and normal filling pressures. The right ventricle is normal in size and function. There is mild mitral regurgitation. There is mild tricuspid regurgitation. PASP is approximately 25 to 30 mmHg. Procedure: A two-dimensional transthoracic echocardiogram with color flow and Doppler was performed. The study quality was technically adequate. There is no prior echocardiogram noted for this patient. The patient was in sinus rhythm with heart rates between 59-81 bpm during the exam. Left Ventricle: The left ventricle is normal in size and wall thickness. The ejection fraction is estimated to be 55-60%. Diastolic parameters suggest probable normal left ventricular diastolic function and normal filling pressures. Right Ventricle: The right ventricle is normal in size and function. Atria: The left atrial size is normal. Right atrial size is normal. There is no Doppler evidence for an interatrial shunt. Mitral Valve: The mitral valve is normal in structure and function. There is mild mitral regurgitation. Aortic Valve: The aortic valve is trileaflet. The aortic valve opens well. There is no aortic valve stenosis. No aortic regurgitation is present. Tricuspid Valve: The tricuspid valve is normal in structure and function. There is mild tricuspid regurgitation. PASP is approximately 25 to 30 mmHg. Pulmonic Valve: The pulmonic valve leaflets are thin and pliable; valve motion is normal. There is trace pulmonic regurgitation. Great Vessels: The aortic root is normal size. The dimensions of the ascending aorta are normal. The IVC is of normal diameter and collapses greater than 50% with a sniff. This suggests a low right atrial pressure of 3 mm Hg. Pericardium/ Pleura There is no pericardial effusion. There is no pleural effusion. MMode/2D Measurements & Calculations LVIDd: 4.2 cm LVOT diam: 2.2 cm LVIDs: 2.7 cm Ao root diam: 3.3 cm FS: 36.6 % asc Aorta Diam: 3.0 cm IVSd: 0.88 cm Ao Arch Diam (Prox Trans): 2.1 cm LVPWd: 0.90 cm LV hutchins. diameter/BSA (cm/m^2): 2.4 LV sys. diameter/BSA (cm/m^2): 1.5 LA A2 area: 15.9 cm2 RA long axis: 4.2 cm LA A4 area: 13.3 cm2 RA area: 12.4 cm2 LA length (vol): 4.6 cm RA vol: 31.1 ml LA vol: 38.7 ml RA : 17.8 ml/m2 LA vol index: 22.3 ml/m2 IVC diam: 1.5 cm RVD1 (basal): 3.7 cm RVD2 (mid): 3.8 cm TAPSE: 1.8 cm Doppler Measurements & Calculations Ao V2 max: 127.2 cm/sec LVOT Max Ashutosh: 90.6 cm/sec Ao V2 mean: 92.0 cm/sec LV V1 max P.3 mmHg Ao max P.5 mmHg LV V1 VTI: 16.8 cm Ao mean P.6 mmHg MESERET(I,D): 2.6 cm2 Ao V2 VTI: 23.5 cm MESERET(V,D): 2.6 cm2 sev ratio: 0.72 MESERET indexed to BSA (cm^2/m^2): 1.5 MV E max ashutosh: 60.9 cm/sec TR max ashutosh: 232.1 cm/sec MV A max ashutosh: 62.3 cm/sec TR max P.5 mmHg MV E/A: 0.98 PA V2 max: 74.7 cm/sec Med Peak E' Ashutosh: 5.5 cm/sec PA V2 mean: 49.9 cm/sec E/E' med: 11.2 PA mean P.1 mmHg Lat Peak E' Ashutosh: 10.1 cm/sec PA pr(Accel): 20.8 mmHg E/E' lat: 6.0 E/e' average: 8.6 MV dec time: 0.25 sec SVLVOT): 61.3 ml Reading Physician:11:08 AM
[2022-03-01] MEDS: cefTRIAXone 1,000 MG in SODIUM CHLORIDE 0.9% 100 ML 200 ML IV (14:36)
--- NOTE | 2022-03-01 15:55 | PC.NURSE ---
Pt is AxOx4, needs minimum assistance with commode. Pt is still on heated high flow 30L/60% and on IV ABO. Continued droplet precaution. No pain. Pt was concerned about her dtr at home so she verbalized that she needs to d/c. RN explained to her what is MD's plan. No other changes.
[2022-03-02] VITALS (16 sets, daily range): BP systolic 98–99; BP diastolic 66–78; PULSE 62–81; RESP 12–26; TEMP 36.6–36.8; O2SAT 91–109
[2022-03-02 06:48] LABS: Add Manual Diff / Slide Review NO; Basophils Absolute Auto 0 /uL (0-100); Basophils Percent Auto 0.3 % (0-2); Eosinophils Absolute Auto 200 /uL (0-450); Eosinophils Percent Auto 4.3 % (2-4); Hematocrit 42.5 % (36-46); Hemoglobin 14.1 g/dL (12.0-16.0); Lymphocytes Absolute Auto 1300 /uL (1100-4500); Mean Corpuscular HGB Conc 33.3 % (30-36); Mean Corpuscular Hemoglobin 30.3 PG (26-34); Mean Corpuscular Volume 91.2 fL (80-100); Monocytes Absolute Auto 500 /uL (0-900); Monocytes Percent Auto 9.1 % (3-14); Neutrophils Absolute Auto 3700 /uL (1500-7000); Neutrophils Percent Auto 64.3 % (50-75); Platelet Count 152 X10^3/uL (150-400); Red Blood Cell Count 4.66 X10^6/uL (4.0-5.2); Red Cell Distribution Width 14.3 % (11.6-14.8); White Blood Cell Count 5.8 X10^3/uL (4.5-11.0)
[2022-03-02 06:54] LABS: BUN Creatinine Ratio 42.9 (6-22); Blood Urea Nitrogen 18 mg/dL (7-17); Calcium 8.7 mg/dL (8.4-10.2); Carbon Dioxide 32 mmol/L (22-32); Chloride 106 mmol/L (98-107); Estimated Glomerular Filt Rate > 60 mL/min (>60); Glucose 89 mg/dL (70-100); HEMOLYSIS < 15 (0-50); Magnesium 2.3 mg/dL (1.6-2.3); Potassium 3.8 mmol/L (3.4-5.1); Sodium 143 mmol/L (137-145)
[2022-03-02 06:56] LABS: Rheumatoid Factor < 8.6 IU/mL (<12.0)
[2022-03-02 07:43] LABS: TSH w/ Reflex to FT4 0.64 uIU/mL (0.47-4.68)
[2022-03-02] MEDS: ENOXAPARIN 40 MG/0.4 ML SYRINGE SUBCUT (08:31)
[2022-03-02 08:37] LABS: HIV 1 & 2 Ab/Ag 4th Gen Combo NEGATIVE (NEGATIVE)
[2022-03-02] MEDS: SODIUM CHLORIDE 7% (RT/INH) 4 ML NEB INH ×2 (09:57→20:30)
[2022-03-02] MEDS: BUDESONIDE 0.5 MG/2 ML NEB INH ×2 (09:57→20:30)
--- NOTE | 2022-03-02 10:52 | PC.NURSE ---
Pt is AxOx4, needs minimum assistance; pt still on droplet precaution. VSS, pt denied pain. Pt ate breakfast well. Pt is continued heated high flow 30L/50% now. Lungs clear and diminished throughout but no SOB noted. No other changes.
--- NOTE | 2022-03-02 12:05 | DIET.CONS ---
Dietary Consultation Note Admission Date: 02/25/2022 22:48 Assessment: 56y F screened by RD for LOS day 5. Pt recently underwent ECHO, here for adverse medication reaction with rhinovirus on o2 which is not her baseline. Pt POs have been excellent this hospital stay, 75-100% meal trays consistently. No nutrition risk identified at this time. Ht: 160.02 cm Wt: 70.76 kg BMI: 27.6 UBW: Last BM: 03/01/22 (03/01/22 17:35) MNA: 12 Harvey Score: 20 Diet: 02/25/22 Breakfast General (Regular) Diet Diet Modifications: Nutrition Percent Meal Consumed 100% 03/01/22 18:00 Percent Meal Consumed 25% 03/01/22 13:00 Percent Meal Consumed 75% 02/28/22 18:00 Percent Meal Consumed 75% 02/28/22 13:13 Labs: RBC 4.66 X10^6/uL (4.0-5.2) 03/02/22 06:20 Hgb 14.1 g/dL (12.0-16.0) 03/02/22 06:20 Hct 42.5 % (36-46) 03/02/22 06:20 Creatinine 0.42 mg/dL (0.52-1.04) L 03/02/22 06:20 Lactate 1.8 mmol/L (0.7-2.1) 02/25/22 20:00 NT-Pro-B Natriuret Pep 121 pg/mL (<125) 02/25/22 20:00 Electronically Signed by: Lorri Thomson 03/02/22 12:05 Clinical Dietitian [address] [id number]
--- NOTE | 2022-03-02 12:30 | P.PN_ITS ---
Subjective Subjective Interval history: The patient is very eager to be discharged home as she feels back to her baseline health and is unsure why she is still here. We discussed that it's because of her high oxygen supplementation requirements, which she reportedly does not use at home. She discussed how at home, she care for her special-needs daughter, goes to [employer] weekly and sings, and performs other tasks without significant SOB or difficulty. We discussed that this is likely because she's been chronically hypoxemic for some time and has adapted to it. Given that we cannot discharge her on high-flow nasal cannulae or CPAP/BiPAP, the patient is amenable to being discharged on 8-10 liters nasal cannulae oxygen, with specific understanding of the consequences of oxygen saturation into the low 80's or mid 80's, up to and including . Exam Vital Signs (past 8 hours): - 03/02/22 05:43 03/02/22 07:00 03/02/22 07:45 Temperature 98.2 F Pulse Rate 62 64 68 Respiratory Rate 18 18 Pulse Oximetry 94 109 H 93 03/02/22 09:57 Temperature Pulse Rate 81 Respiratory Rate 20 Pulse Oximetry 93 Fraction of Inspired Oxygen 55 Oxygen Delivery Method High Flow Nasal Cannula Oxygen Flow Rate 30 Narrative Exam Narrative: Const Other: Patient sitting up in bed upon my entering the room, with heated high-flow nasal cannulae on, and does not appear in respiratory distress Eyes Other: No scleral icterus appreciated Resp Other: Diffuse rhonchi and rales appreciated bilaterally, with diminished breath sounds at the lung bases Cardio Other: RRR, S1 and S2 heart sounds normal, with no extra heart sounds appreciated GI Other: Soft, non-distended, non-tender, bowel sounds present Skin Other: No grossly abnormal skin lesions appreciated Extrem Other: Palpable doralis pedis pulses bilaterally Objective Labs Result Diagrams: 03/02/22 06:20 03/02/22 06:20 Labs: Laboratory Results - last 24 hr 03/02/22 03/02/22 03/02/22 06:20 06:20 06:20 WBC 5.8 RBC 4.66 Hgb 14.1 Hct 42.5 MCV 91.2 MCH 30.3 MCHC 33.3 RDW 14.3 Plt Count 152 Neut % (Auto) 64.3 Lymph % (Auto) 22.0 L [place] % (Auto) 9.1 Eos % (Auto) 4.3 H Baso % (Auto) 0.3 Neut # (Auto) 3700 Lymph # (Auto) 1300 [place] # (Auto) 500 Eos # (Auto) 200 Baso # (Auto) 0 Sodium 143 Potassium 3.8 Chloride 106 Carbon Dioxide 32 BUN 18 H Creatinine 0.42 L Estimated GFR > 60 BUN/Creatinine Ratio 42.9 H Glucose 89 Calcium 8.7 Phosphorus 3.0 Magnesium 2.3 TSH 0.64 Rheumatoid Factor < 8.6 HIV 1&2 Ab/P24 Ag 4thGn 03/02/22 06:20 WBC RBC Hgb Hct MCV MCH MCHC RDW Plt Count Neut % (Auto) Lymph % (Auto) [place] % (Auto) Eos % (Auto) Baso % (Auto) Neut # (Auto) Lymph # (Auto) [place] # (Auto) Eos # (Auto) Baso # (Auto) Sodium Potassium Chloride Carbon Dioxide BUN Creatinine Estimated GFR BUN/Creatinine Ratio Glucose Calcium Phosphorus Magnesium TSH Rheumatoid Factor HIV 1&2 Ab/P24 Ag 4thGn Negative PFSH Medical History Cholecystitis Cholelithiasis Myotonic dystrophy Pneumonia Surgical History History of cholecystectomy History of removal of ovarian cyst Family History Mother COPD (chronic obstructive pulmonary disease) Daughter Muscular dystrophy, myotonic Father Muscular dystrophy, myotonic Social History household members: spouse and children Smoking Status: Never smoker alcohol intake: never Assessment & Plan Assessment & Plan narrative: This is a 56-year-old female with a hx of myotonic dystrophy that is admitted with acute respiratory failure with hypoxia, likely secondary to bronchiectasis from long-standing repeat bronchitis/pneumonias due to myotonic dsytrophy. 1. Acute respiratory failure with hypoxia, likely due to exacerbation of underlying bronchiectasis from acute viral/bacterial pneumonia, with bronchiectasis likely from long-standing myotonic dystrophy ?- Patient is requiring high-flow nasal cannulae to maintain oxygenation, with chest physiotherapy providing help, along with incentive spirometry ?- Ordered for high-resolution CT scan to further evaluate lung parenchyma, however, radiology recommends this be done after patient recovers from this current bout to obtain a better understanding of her lung architecture 2. Rhinovirus infection with possible superimposed, bacterial pneumonia ?- IV ceftriaxone and IV azithromycin on-board from February 26, 2022, with respiratory cultures pending ?- Moving forward, patient will likely need PO fluoroquinolones for flare-ups 3. Myotonic dystrophy ?- Likely contributing greatly to degree of respiratory failure, as patient's diagphragm and accessory respiratory muscles are likely weak from long-standing myotonic dystrophy VTE prophylaxis: Lovenox 40 mg daily Time Spent With Patient Critical Care time: I spent a total of [] minutes of critical care time on this patient's care today; this time is exclusive of procedural time. Quality VTE Deep Vein Thrombosis/Pulmonary Embolism Present on Admission: No
[2022-03-02] MEDS: cefTRIAXone 1,000 MG in SODIUM CHLORIDE 0.9% 100 ML 200 ML IV (15:30)
--- NOTE | 2022-03-02 16:16 | RT ---
PT REFUSED SALINE NEB AND CPT AT 1610 ON 03/02/22.
[2022-03-03] VITALS (8 sets, daily range): BP systolic 100–119; BP diastolic 65–80; PULSE 66–84; RESP 16–21; TEMP 36.1–36.8; O2SAT 93–98
[2022-03-03] MEDS: ENOXAPARIN 40 MG/0.4 ML SYRINGE SUBCUT (08:57)
--- NOTE | 2022-03-03 10:47 | PC.NURSE ---
Addendum entered by Franci Taylor R.N. 03/03/22 13:56: Patient back on 2L of o2 as sats were 87%. Called RT to let them know about a home oxygen evaluation. Original Note: Assess- Patient is alert and oriented x3. Her Heated High flow was taken off this morning and patient was put on 4L of o2, dropped to 2 and then RT Anish has put patient on room air. Her saturations at that time was 93%. She denies any sob or issues breathing and will be discharged today around 1530. Patient does have some wheezing to her r.upper lungs.
[2022-03-03] MEDS: BUDESONIDE 0.5 MG/2 ML NEB INH (10:55)
[2022-03-03] MEDS: SODIUM CHLORIDE 7% (RT/INH) 4 ML NEB INH (10:56)
--- NOTE | 2022-03-03 14:41 | CM.DPNOTE ---
DCP Note Patient discussed in multidisciplinary rounds this morning; DC expected today, home w/family and potentially home O2 if criteria met Patient eager to be discharged home and states she is back to her baseline health According to Dr Moctezuma's prog note 4.28: Given that we cannot discharge her on high-flow nasal cannulae or CPAP/BiPAP, the patient is amenable to being discharged on 8-10 liters nasal cannulae oxygen, with specific understanding of the consequences of oxygen saturation into the low 80's or mid 80's, up to and including . Patient agreeable to plan. No needs identified by this SHAREPOINT APPLICATION DEVELOPER. Home w/family today. CM team available today in case DC needs or concerns arise JW
--- NOTE | 2022-03-03 15:29 | PM.PN.1 ---
Subjective Subjective Interval history: Patient reports feeling back to her baseline health. She is requesting to go home today. Exam Vital Signs (past 8 hours): - 03/03/22 07:55 03/03/22 07:56 03/03/22 09:00 Temperature 97.1 F L Pulse Rate 72 Respiratory Rate 19 Blood Pressure 114/74 Pulse Oximetry 96 95 93 03/03/22 11:00 03/03/22 14:00 Temperature 96.9 F L Pulse Rate 73 84 Respiratory Rate 20 19 Blood Pressure 119/80 Pulse Oximetry 93 Fraction of Inspired Oxygen 35 Oxygen Delivery Method Nasal Cannula Oxygen Flow Rate 90 Narrative Exam Narrative: Const Other: Patient sitting up in bed upon my entering the room, with nasal cannulae on at 4 liters, and does not appear in respiratory distress Eyes Other: No scleral icterus appreciated Resp Other: Diffuse rhonchi and rales appreciated bilaterally, with diminished breath sounds at the lung bases Cardio Other: RRR, S1 and S2 heart sounds normal, with no extra heart sounds appreciated GI Other: Soft, non-distended, non-tender, bowel sounds present Skin Other: No grossly abnormal skin lesions appreciated Extrem Other: Palpable doralis pedis pulses bilaterally Objective Labs Result Diagrams: 03/02/22 06:20 03/02/22 06:20 [facility] Medical History Cholecystitis Cholelithiasis Myotonic dystrophy Pneumonia Surgical History History of cholecystectomy History of removal of ovarian cyst Family History Mother COPD (chronic obstructive pulmonary disease) Daughter Muscular dystrophy, myotonic Father Muscular dystrophy, myotonic Social History household members: spouse and children Smoking Status: Never smoker alcohol intake: never Assessment & Plan Assessment & Plan narrative: This is a 56-year-old female with a hx of myotonic dystrophy that is admitted with acute respiratory failure with hypoxia, likely secondary to bronchiectasis from long-standing repeat bronchitis/pneumonias due to myotonic dsytrophy. 1. Acute respiratory failure with hypoxia, likely due to exacerbation of underlying bronchiectasis from acute viral/bacterial pneumonia, with bronchiectasis likely from long-standing myotonic dystrophy ?- Patient required high-flow nasal cannulae to maintain oxygenation inpatient, with chest physiotherapy providing help, along with incentive spirometry - At time of discharge, was weaned down to 2-4 liters nasal cannulae, as she desaturated to 83% on room air, and further down with ambulation, and improved to 93% with supplemental oxygen, 2-4 liters ?- Ordered for high-resolution CT scan to further evaluate lung parenchyma, however, radiology recommends this be done after patient recovers from this current bout to obtain a better understanding of her lung architecture 2. Rhinovirus infection with possible superimposed, bacterial pneumonia ?- IV ceftriaxone and IV azithromycin on-board from February 26, 2022, and completed course inpatient ?- Moving forward, patient will likely need PO fluoroquinolones for future flare-ups 3. Myotonic dystrophy ?- Likely contributing greatly to degree of respiratory failure, as patient's diagphragm and accessory respiratory muscles are likely weak from long-standing myotonic dystrophy VTE prophylaxis: Lovenox 40 mg daily Time Spent With Patient Critical Care time: I spent a total of [] minutes of critical care time on this patient's care today; this time is exclusive of procedural time. Quality VTE Deep Vein Thrombosis/Pulmonary Embolism Present on Admission: No
--- NOTE | 2022-03-03 15:33 | P.DS_ITS ---
History of Present Illness History of Present Illness Chief complaint: Adverse meds reaction Narrative: Kati Gordon is a 56 y.o. 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 She presented to [facility]'s walk in clinic who treated her for a bacterial upper respiratory infection with oral levaquin and prednisone. She started to feel nauseous and never improved. She presents again today with a persistent cough. No longer febrile, but still with shortness of breath, cough and hypoxic in the ED. She showed up with an oxygen saturation of 86 on room air. She describes sputem as c lear or cloudy. Denies nausea, chest pain, dysurea, diarrhea or constipation. In the ED, chest xray was negative for an acute process, and CTA of the chest ruled out a PE, Though noted dense alveolar consolidation and inflammation with hyperemia and atelectasis of the mid lower posterior lung parenchyma where mucous?inspissation and fluid content is seen within mildly varicoid morpholog ically abnormal airways.? This may indicate chronic bronchiectasis with superimposed pneumonia.Patient is afebrile, blood pressure 116/73, heart rate 67, respiratory rate 22, oxygen saturation of 94% on 2 L, she weighs 70.76 kg with a BMI of 27.6.? Her white count is normal, she is hemoconcentrated with hemoglobin and hematocrit of 16.2 and 47.9 respectively, platelet count 179, BUN 26, creatinine 0.50 with a EGFR it is normal, AST 51, ALT 52, procalcitonin is negative, COVID-19 PCR is negative but she is positive for rhinovirus. Written by admitting provider. Discharge Providers Provider Date of admission: 02/25/22 22:48 Discharge Date: 03/03/22 Discharge provider: Margo Moctezuma MD Summary Hospital Course Discharge Diagnosis: This is a 56-year-old female with a hx of myotonic dystrophy that is admitted with acute respiratory failure with hypoxia, likely secondary to bronchiectasis from long-standing repeat bronchitis/pneumonias due to myotonic dsytrophy. 1. Acute respiratory failure with hypoxia, likely due to exacerbation of underlying bronchiectasis from acute viral/bacterial pneumonia, with b ronchiectasis likely from long-standing myotonic dystrophy ?- Patient required high-flow nasal cannulae to maintain oxygenation inpatient, with chest physiotherapy providing help, along with incentive spirometry ?- At time of discharge, was weaned down to 2-4 liters nasal cannulae, as she desaturated to 83% on room air, and further down with ambulation, and improved to 93% with supplemental oxygen, 2-4 liters ?- Ordered for high-resolution CT scan to further evaluate lung parenchyma, however, radiology recommends this be done after patient recovers from this current bout to obtain a better understanding of her lung architecture 2. Rhinovirus infection with possible superimposed, bacterial pneumonia ?- IV ceftriaxone and IV azithromycin on-board from February 26, 2022, and completed course inpatient ?- Moving forward, patient will likely need PO fluoroquinolones for future flare-ups 3. Myotonic dystrophy ?- Likely contributing greatly to degree of respiratory failure, as patient's diagphragm and accessory respiratory muscles are likely weak from long-standing myotonic dystrophy Exam Vital Signs (past 8 hours): - 03/03/22 07:55 03/03/22 07:56 03/03/22 09:00 Temperature 97.1 F L Pulse Rate 72 Respiratory Rate 19 Blood Pressure 114/74 Pulse Oximetry 96 95 93 03/03/22 11:00 03/03/22 14:00 Temperature 96.9 F L Pulse Rate 73 84 Respiratory Rate 20 19 Blood Pressure 119/80 Pulse Oximetry 93 Fraction of Inspired Oxygen 35 Oxygen Delivery Method Nasal Cannula Oxygen Flow Rate 90 Objective Labs Result Diagrams: 03/02/22 06:20 03/02/22 06:20 [facility] Medical History Cholecystitis Cholelithiasis Myotonic dystrophy Pneumonia Surgical History History of cholecystectomy History of removal of ovarian cyst Family History Mother COPD (chronic obstructive pulmonary disease) Daughter Muscular dystrophy, myotonic Father Muscular dystrophy, myotonic Social History household members: spouse and children Smoking Status: Never smoker alcohol intake: never Discharge Assessment & Plan Assessment and Plan Assessment: This is a 56-year-old female with a hx of myotonic dystrophy that is admitted with acute respiratory failure with hypoxia, likely secondary to bronchiectasis from long-standing repeat bronchitis/pneumonias due to myotonic dsytrophy. 1. Acute respiratory failure with hypoxia, likely due to exacerbation of underlying bronchiectasis from acute viral/bacterial pneumonia, with bronchiectasis likely from long-standing myotonic dystrophy ?- Patient required high-flow nasal cannulae to maintain oxygenation inpatient, with chest physiotherapy providing help, along with incentive spirometry ?- At time of discharge, was weaned down to 2-4 liters nasal cannulae, as she desaturated to 83% on room air, and further down with ambulation, and improved to 93% with supplemental oxygen, 2-4 liters ?- Ordered for high-resolution CT scan to further evaluate lung parenchyma, however, radiology recommends this be done after patient recovers from this current bout to obtain a better understanding of her lung architecture 2. Rhinovirus infection with possible superimposed, bacterial pneumonia ?- IV ceftriaxone and IV azithromycin on-board from February 26, 2022, and completed course inpatient ?- Moving forward, patient will likely need PO fluoroquinolones for future flare-ups 3. Myotonic dystrophy ?- Likely contributing greatly to degree of respiratory failure, as patient's diagphragm and accessory respiratory muscles are likely weak from long-standing myotonic dystrophy Discharge Plan Discharge Plan Patient Disposition: Home Discharge orders & Medications Prescriptions: No Action No Known Home Medications 0RF Quality VTE Deep Vein Thrombosis/Pulmonary Embolism Present on Admission: No
[2022-03-04 03:54] LABS: IGA 192 mg/dL (87-352); IGG 693 mg/dL (586-1602); IGM 70 mg/dL (26-217)
[2022-03-04 12:24] LABS: ANA Screen, IFA Negative (.)
[2022-03-17 09:16] LABS: Alpha 1 Antitrypsin 144 mg/dL (101-187); Alpha 1 antitrypsin pheno Rflx Not Indicated (.)
== END 2022-03-03 16:25 | disposition home or self-care (01) | DRG 189 ==
LOC: ED 22:36 → AC 02-26 10:10
PROVIDERS: Student in an Organized Health Care Education/Training Program; Admitting Provider Nurse Practitioner Family; Emergency Provider Emergency Medicine; Referring Provider Emergency Medicine; Visit Provider Nurse Practitioner Family
DX: J96.01 Acute respiratory failure with hypoxia (principal); J15.9 Unspecified bacterial pneumonia; J47.9 Bronchiectasis, uncomplicated; B34.8 Other viral infections of unspecified site; G71.11 Myotonic muscular dystrophy; Z20.822 Contact with and (suspected) exposure to COVID-19
CPT/HCPCS: 36415; 71045; 71275; 80048; 80053; 81332; 82103; 82550; 82784; 83605; 83735; 83880; 84100; 84145; 84443; 84484; 85025; 85610; 86038; 86430; 87070; 87102; 87205; 87389; 87633; 87635; 93005; 93306; 94618; 94640; 94667; 94668; 94762; 99284; 99285; C9803; J0696; J1650

== ENCOUNTER 2025-03-16 10:04 | Observation (INO) | payer BC, SELFPAY ==
[2022-02-26 00:24] VITALS: BMI 27.6
[2025-03-16] VITALS (16 sets, daily range): BP systolic 109–150; BP diastolic 68–92; PULSE 59–94; RESP 16–36; TEMP 36.3–37.1; O2SAT 90–95; BMI 29.2
--- NOTE | 2025-03-16 10:14 | DI.RAD.S_ITS ---
PROCEDURE: XR CHEST 1V INDICATIONS: cough TECHNIQUE: One view of the chest was acquired. COMPARISON: [facility], CR, XR CHEST 1V, 02/25/2022, 19:52. FINDINGS: Surgical changes and devices: Cholecystectomy clips Lungs and pleura: Minimal right effusion. Mediastinum: Mediastinal contours appear normal. Heart size is normal. Bones and chest wall: No suspicious bony lesions. Overlying soft tissues appear unremarkable. IMPRESSION: No acute pulmonary process. Dictated by: Juana Hopson M.D. on 03/16/2025 at 10:36 Approved by: Juana Hopson M.D. on 03/16/2025 at 10:37
--- NOTE | 2025-03-16 10:15 | EKG_ITS ---
[address] [address] Test Date: 2025-03-16 Pat Name: Kati Gordon Department: Room: Gender: Female Order Selector: ZEINA : 1965 Requested By: Order Number: [id number] Reading MD: Adama Jordan MD Measurements Intervals [place] Rate: 90 P: 35 SC: 168 QRS: -55 QRSD: 164 T: 264 QT: 470 QTc: 574 Interpretive Statements Sinus rhythm with frequent premature ventricular complexes Right atrial enlargement Left axis deviation Right bundle branch block Minimal voltage criteria for LVH, may be normal variant ( R in aVL ) Septal infarct , age undetermined T wave abnormality, consider inferolateral ischemia Electronically Signed On 03-16-2025 10:54:52 PDT by Adama Jordan MD
--- NOTE | 2025-03-16 10:21 | PC.NURSE ---
Pt has frequent, productive cough. Denies chest pain. Awake and alert. Sats decrease to 87% on RA, improves to 93% on 3L per NC.
--- NOTE | 2025-03-16 10:28 | ED_ITS ---
HPI - SOB/Dyspnea General Chief Complaint: Shortness of Breath/Dyspnea Stated Complaint: Shortness of breath Time Seen by Provider: 03/16/25 10:10 Source: EMS Mode of arrival: EMS Limitations: physical limitation History of Present Illness HPI Narrative: Patient is a 59-year-old female history of muscular dystrophy does not go to doctors presenting today with increased difficulty breathing and cough. Her daughter was just admitted to the hospital for pneumonia and rhino virus. She reports that she started taking Robitussin about a week ago but still is having a lot of phlegm and can not quite cough it up. She required 1-2 L of oxygen for EMS and still does here. No significant abdominal pain no fever or chills. Just feels like she can not quite cough. Related Data Home Medications Medication Instructions Recorded Confirmed No Known Home Medications 03/16/25 03/16/25 Allergies Allergy/AdvReac Type Severity Reaction Status Date / Time No Known Drug Allergies Allergy Verified 02/25/22 19:18 Patient History Medical History Myotonic dystrophy Cholelithiasis Cholecystitis Pneumonia Surgical History History of removal of ovarian cyst History of cholecystectomy Family History Mother COPD (chronic obstructive pulmonary disease) Daughter Muscular dystrophy, myotonic Father Muscular dystrophy, myotonic Social History household members: spouse and children Smoking Status: Never smoker alcohol intake: never alcohol intake frequency: 0-2 drinks per day Exam Initial Vital Signs Initial Vital Signs: Vital Signs Pulse Rate 90 03/16/25 10:08 Pulse Oximetry 91 03/16/25 10:08 Oxygen Delivery Method Nasal Cannula 03/16/25 10:08 Oxygen Flow Rate 3 03/16/25 10:08 GENERAL: Alert pleasant 59-year-old female and in no acute distress. HEENT: Head atraumatic,EOMI, pupils reactive, face symmetric, dry mucous membranes CARDIOVASCULAR: Regular rate and rhythm without murmurs, rubs or gallops. RESPIRATORY: Coarse breath sounds bilaterally mild tachypnea ABDOMEN: Soft, nontender. Normoactive bowel sounds all 4 quadrants. No guarding or rebound. EXTREMITIES: Normal range of motion, no clubbing or edema. Neurovascularly intact NEUROLOGICAL: Alert and oriented x4.Normal gait and speech. Cranial nerves II through XII grossly intact. SKIN: Warm, dry, no laceration, no petechiae, no rashes or lesions. Course Orders Ordered: ED Orders 03/16/25 10:10 Complete Blood Count AUTO DIFF Stat Comprehensive Metabolic Panel Stat Lactate (Lactic Acid) Stat NT-proBNP (BNP-Adult 18+) Stat PTT Partial Thromboplastin Ishan Stat Procalcitonin Stat Prothrombin Time INR Stat Troponin & CK Cardiac Panel Stat 03/16/25 10:14 XR chest 1V Stat 03/16/25 10:15 EKG-12 Lead Stat 03/16/25 10:30 Respiratory Panel (Film Array) Stat 03/16/25 10:45 Blood Culture Stat 03/16/25 11:52 CT angio chest PE protocol Stat 03/16/25 12:50 Ictotest Urine Stat Urinalysis and Microscopic Stat Urine Culture Stat Acetaminophen (Acetaminophen 325 Mg Tablet) 650 mg PO Q6H PRN PRN Reason: Fever/Mild Pain (1-3) Albuterol (Albuterol 2.5 Mg/3 Ml Neb (Adult)) 2.5 mg INH [id number] PRN PRN Reason: Shortness Of Breath Last Admin: 03/16/25 17:11 Dose: 2.5 mg Documented By: KASSY Benzonatate (Benzonatate 100 Mg Capsule) 100 mg PO TID PRN PRN Reason: Cough Guaifenesin (Guaifenesin Solution 100 Mg/5 Ml Udc) 200 mg PO Q4HR PRN PRN Reason: Cough Heparin Sodium (Porcine) (Heparin 5,000 Unit/Ml Vial) 5,000 unit SUBCUT BID FEMI Sodium Chloride (Normal Saline 0.9%) 1,000 mls @ 100 mls/hr IV CONT FEMI Last Admin: 03/16/25 15:57 Dose: 100 mls/hr Documented By: CHRISTIE Piperacillin Sod/Tazobactam (Sod 3.375 gm/ Sodium Chloride) 100 mls @ 25 mls/hr IV Q8H FEMI Naloxone HCl (Naloxone 0.4 Mg/Ml Vial) 0.2 mg IV Q2MIN PRN PRN Reason: Opiate Reversal Ondansetron HCl (Ondansetron 4 Mg/2 Ml Inj) 4 mg IV Q8HR PRN PRN Reason: Nausea And Vomiting Discontinued Medications Piperacillin Sod/Tazobactam (Sod 4.5 gm/ Sodium Chloride) 100 mls @ 200 mls/hr IV NOW ONE Stop: 03/16/25 13:09 Last Infusion: 03/16/25 14:25 Dose: Infused Documented By: Admin: 03/16/25 13:21 Dose: 200 mls/hr Documented By: Vital Signs Vital signs: Vital Signs - 8 hr 03/16/25 11:00 03/16/25 11:00 03/16/25 11:30 Pulse Rate 79 68 Respiratory Rate 18 Blood Pressure 112/83 Pulse Oximetry 90 L 94 Oxygen Delivery Method Oxygen Flow Rate 03/16/25 11:30 03/16/25 12:18 03/16/25 12:19 Pulse Rate 90 Respiratory Rate Blood Pressure 114/68 150/92 H Pulse Oximetry 92 Oxygen Delivery Method Oxygen Flow Rate 03/16/25 12:19 03/16/25 12:30 03/16/25 12:30 Pulse Rate 87 85 Respiratory Rate 30 H Blood Pressure 138/85 Pulse Oximetry 93 93 Oxygen Delivery Method Nasal Cannula Oxygen Flow Rate 3 03/16/25 13:00 03/16/25 13:00 03/16/25 13:30 Pulse Rate 87 Respiratory Rate 26 H Blood Pressure 120/74 121/70 Pulse Oximetry 91 Oxygen Delivery Method Oxygen Flow Rate 03/16/25 13:30 03/16/25 14:00 03/16/25 14:00 Pulse Rate 75 64 Respiratory Rate 27 H 18 Blood Pressure 109/70 Pulse Oximetry 92 95 Oxygen Delivery Method Oxygen Flow Rate MDM - SOB/Dyspnea Lab Data 03/16/25 10:10 03/16/25 10:10 Labs: Lab Results 03/16/25 03/16/25 03/16/25 Range/Units 10:10 10:30 12:50 WBC 4.8 (4.5-11.0) X10^3/uL RBC 5.08 (4.0-5.2) X10^6/uL Hgb 15.6 (12.0-16.0) g/dL Hct 46.9 H (36-46) % MCV 92.3 (80-100) fL MCH 30.8 (26-34) PG MCHC 33.3 (30-36) % RDW 14.6 (11.6-14.8) % Plt Count 166 (150-400) X10^3/uL Neut % (Auto) 79.0 H (50-75) % Lymph % (Auto) 13.0 L (25-40) % [place] % (Auto) 6.0 (3-14) % Eos % (Auto) 1.4 L (2-4) % Baso % (Auto) 0.6 (0-2) % Neut # (Auto) 3800 (2812-5917) /uL Lymph # (Auto) 600 L (3433-4856) /uL [place] # (Auto) 300 (0-900) /uL Eos # (Auto) 100 (0-450) /uL Baso # (Auto) 0 (0-100) /uL PT 11.7 (9.4-12.5) SECONDS INR 1.0 (0.9-1.3) APTT 34 (25.1-36.5) SECONDS Sodium 142 (137-145) mmol/L Potassium 4.3 (3.4-5.1) mmol/L Chloride 102 (98-107) mmol/L Carbon Dioxide 35 H (22-32) mmol/L BUN 17 (7-17) mg/dL Creatinine 0.37 L (0.52-1.04) mg/dL Estimated GFR > 60 (>60) mL/min BUN/Creatinine Ratio 45.9 H (6-22) Glucose 125 H (70-99) mg/dL Lactate 1.7 (0.7-2.1) mmol/L Calcium 10.2 (8.4-10.2) mg/dL Total Bilirubin 1.0 (0.2-1.3) mg/dL AST 55 H (14-36) IU/L ALT 39 H (<35) IU/L Alkaline Phosphatase 51 (38-126) U/L Total Creatine Kinase 71 (30-135) U/L Troponin I 0.018 (0.01-0.034) ng/mL NT-Pro-B Natriuret Pep 185 H (<125) pg/mL Total Protein 7.3 (6.3-8.2) g/dL Albumin 4.2 (3.5-5.0) g/dL Globulin 3.1 (1.7-4.1) g/dL Albumin/Globulin Ratio 1.4 (1.0-2.8) Procalcitonin 0.059 (<0.5) ng/mL Urine Color Yellow Urine Appearance Sl cloudy Urine pH 6.0 (4.5-8.0) Ur Specific [place] 1.015 (1.000-1.035) Urine Protein Negative (Negative) Urine Glucose (UA) Negative (Negative) g/dL Urine Ketones Negative (NEGATIVE) Urine Occult Blood Negative (Negative) Urine Nitrate Negative (Negative) Urine Bilirubin 2+ H (NEGATIVE) Ur Bilirubin Confirm Negative (Negative) Urine Urobilinogen 1.0 (0.2) E.U./dL Ur Leukocyte Esterase 3+ H (NEGATIVE) Urine RBC None seen (0-5/HPF) Urine WBC 5-10/hpf H (0-5/HPF) Ur Squamous Epith Cells None seen (0-5/HPF) Urine Bacteria None seen (None) Ur Culture Indicated? Specimen cultured Vol Urine Centrifuged 10ml (spun) Chlamy pneumoniae PCR Not detected (Not Detect) Adenovirus (PCR) Not detected (Not Detect) B. pertussis DNA (PCR) Not detected (Not Detect) B.parapertussis DNA PCR Not detected (Not Detecte) Coronavirus OC43 (PCR) Not detected (Not Detect) Coronavirus HKU1 (PCR) Not detected (Not Detect) Coronavirus 229E (PCR) Not detected (Not Detect) SARS-CoV-2 (PCR) Not detected (Not Detecte) Coronavirus NL63 (PCR) Not detected (Not Detect) Human Metapneumovir PCR Not detected (Not Detect) Influenza Type A (PCR) Not detected (Not Detect) Influenza Type B (PCR) Not detected (Not Detect) M. pneumoniae (PCR) Not detected (Not Detect) Parainfluenza 1 (PCR) Not detected (Not Detect) Parainfluenza 2 (PCR) Not detected (Not Detect) Parainfluenza 3 (PCR) Not detected (Not Detect) Parainfluenza 4 (PCR) Not detected (Not Detect) RSV (PCR) Not detected (Not Detect) Entero/Rhino (PCR) Detected H (Not Detect) Imaging Data Chest x-ray: Radiologist's Impression: PROCEDURE: XR CHEST 1V INDICATIONS: cough TECHNIQUE: One view of the chest was acquired. COMPARISON: [facility], CR, XR CHEST 1V, 02/25/2022, 19:52. FINDINGS: Surgical changes and devices: Cholecystectomy clips Lungs and pleura: Minimal right effusion. Mediastinum: Mediastinal contours appear normal. Heart size is normal. Bones and chest wall: No suspicious bony lesions. Overlying soft tissues appear unremarkable. IMPRESSION: No acute pulmonary process. Dictated by: Juana Hopson M.D. on 03/16/2025 at 10:36 CT scan - chest: Radiologist's Impression: PROCEDURE: CT ANGIO CHEST PE PROTOCOL INDICATIONS: hypoxia TECHNIQUE: After the administration of intravenous contrast, 2 mm thick sections acquired from the pulmonary apices to the posterior costophrenic angles. 3-dimensional maximum intensity projection (MIP) coronal and sagittal reformats were then acquired through the thorax. For radiation dose reduction, the following was used: automated exposure control, adjustment of mA and/or kV according to patient size. COMPARISON: [facility], CR, XR CHEST 1V, 03/16/2025, 10:13. [facility], CT, CT ANGIO CHEST PE PROTOCOL, 02/25/2022, 21:04. FINDINGS: Image quality: Diagnostic. Pulmonary arteries: Pulmonary arteries are normal in size, and demonstrate no intraluminal filling defects to suggest central pulmonary embolism. Lower Neck: No enlarged lymph nodes. Thyroid: Unchanged appearance of low-attenuation foci. Axillae: No enlarged lymph nodes. Chest Wall: Unremarkable. Bones: Unremarkable. Lungs and Pleura: Minimal right effusion. Streaky opacities with there is somewhat more consolidative in appearance are present within the bases bilaterally, relatively unchanged compared to prior exam. Heart: Heart size is normal. No pericardial effusion. Thoracic Vessels: No aortic aneurysm. Mediastinum and [place]: No enlarged lymph nodes. Esophagus: No wall thickening. No hiatal hernia. Upper Abdomen: Visualized upper abdomen solid organs and bowel loops appear normal. IMPRESSION: No pulmonary embolus. Relatively unchanged with appearance of streaky/partial consolidative opacities within the bases. Dictated by: Juana Hopson M.D. on 03/16/2025 at 12:52 ECG Data Attestation: I personally reviewed and interpreted this ECG as follows: Prior ECG tracings: available for review Interpretation: Lots of artifact sinus rhythm rate 90 difficult to tell if there is any kind of ischemia but low suspicion MDM Narrative Medical decision making narrative: MDM CC: Cough shortness of breath Complicating co-morbidities: Muscular dystrophy Data collected from: Patient and [facility] Medical records reviewed: No records available Differential considered: Pneumonia viral illness congestive heart failure pulmonary embolism Exam documented above, pertinent findings include: 59-year-old female appears slightly weak coarse breath sounds bilaterally no significant respiratory distress Lab Test results independently reviewed as above. Pertinent findings: WBC 4.8, hemoglobin 15.6 hematocrit 46.9 platelets 166 Electrolytes within normal limits sodium 142 potassium 4.3 chloride 102 bicarb 35 BUN 17 creatinine 0.3 glucose 125 Lactate 1.7, procalcitonin 0.05 no Troponin negative, BNP 185 Respiratory panel positive for entero rhinovirus Independently reviewed EKG as above lots of artifact sinus rhythm Imaging studies independently reviewed: Chest x-ray no acute cardiopulmonary process CT angio no pulmonary embolism, relatively unchanged appearance of streaky partial consolidative opacities in the bases Consultations: Dr. Thomas kindly accepts Treatments: Zosyn, normal saline Re-evaluations: Patient appears comfortable sitting upright no significant respiratory distress Discussion: Patient is a 59-year-old female history of muscular dystrophy presenting today with increasing shortness of breath and cough. She was requiring 2-3 L of nasal cannula. By actually does not meet sepsis criteria she has no leukocytosis she has a normal lactate. She does have a pretty wet sounding cough, mildly coarse breath sounds bilaterally but no significant tachypnea. She was positive for rhino virus. She was covered empirically with antibiotics. Her daughter was just admitted it with similar symptoms. Discharge Plan Departure Patient Disposition: Admitted as Observation Clinical Impression: Rhinovirus infection, Pneumonia, Hypoxia Admit Date/Time: 03/16/25 14:25 Admit Provider: Gilbert Thomas
[2025-03-16 10:33] LABS: Prothrombin Time 11.7 SECONDS (9.4-12.5)
[2025-03-16 10:39] LABS: Alanine Aminotransferase 39 IU/L (<35); Albumin 4.2 g/dL (3.5-5.0); Albumin Globulin Ratio 1.4 (1.0-2.8); Alkaline Phosphatase 51 U/L (38-126); Aspartate Aminotransferase 55 IU/L (14-36); BUN Creatinine Ratio 45.9 (6-22); Blood Urea Nitrogen 17 mg/dL (7-17); Calcium 10.2 mg/dL (8.4-10.2); Carbon Dioxide 35 mmol/L (22-32); Chloride 102 mmol/L (98-107); Creatine Kinase 71 U/L (30-135); Estimated Glomerular Filt Rate > 60 mL/min (>60); Globulin 3.1 g/dL (1.7-4.1); Glucose 125 mg/dL (70-99); HEMOLYSIS 84 (0-50); Lactate (Lactic Acid) 1.7 mmol/L (0.7-2.1); Potassium 4.3 mmol/L (3.4-5.1); Sodium 142 mmol/L (137-145); Total Protein 7.3 g/dL (6.3-8.2)
[2025-03-16 10:49] LABS: Add Manual Diff / Slide Review NO; Basophils Absolute Auto 0 /uL (0-100); Basophils Percent Auto 0.6 % (0-2); Eosinophils Absolute Auto 100 /uL (0-450); Eosinophils Percent Auto 1.4 % (2-4); Hematocrit 46.9 % (36-46); Hemoglobin 15.6 g/dL (12.0-16.0); Lymphocytes Absolute Auto 600 /uL (1100-4500); Mean Corpuscular HGB Conc 33.3 % (30-36); Mean Corpuscular Hemoglobin 30.8 PG (26-34); Mean Corpuscular Volume 92.3 fL (80-100); Monocytes Absolute Auto 300 /uL (0-900); NT-proBNP (BNP-Adult 18+) 185 pg/mL (<125); Neutrophils Absolute Auto 3800 /uL (1500-7000); PTT Partial Thromboplastin Tim 34 SECONDS (25.1-36.5); Platelet Count 166 X10^3/uL (150-400); Red Blood Cell Count 5.08 X10^6/uL (4.0-5.2); Red Cell Distribution Width 14.6 % (11.6-14.8); White Blood Cell Count 4.8 X10^3/uL (4.5-11.0)
[2025-03-16 10:51] LABS: Troponin I 0.018 ng/mL (0.01-0.034)
[2025-03-16 10:56] LABS: Procalcitonin 0.059 ng/mL (<0.5)
--- NOTE | 2025-03-16 11:52 | DI.CT.S_ITS ---
PROCEDURE: CT ANGIO CHEST PE PROTOCOL INDICATIONS: hypoxia TECHNIQUE: After the administration of intravenous contrast, 2 mm thick sections acquired from the pulmonary apices to the posterior costophrenic angles. 3-dimensional maximum intensity projection (MIP) coronal and sagittal reformats were then acquired through the thorax. For radiation dose reduction, the following was used: automated exposure control, adjustment of mA and/or kV according to patient size. COMPARISON: [facility], CR, XR CHEST 1V, 03/16/2025, 10:13. [facility], CT, CT ANGIO CHEST PE PROTOCOL, 02/25/2022, 21:04. FINDINGS: Image quality: Diagnostic. Pulmonary arteries: Pulmonary arteries are normal in size, and demonstrate no intraluminal filling defects to suggest central pulmonary embolism. Lower Neck: No enlarged lymph nodes. Thyroid: Unchanged appearance of low-attenuation foci. Axillae: No enlarged lymph nodes. Chest Wall: Unremarkable. Bones: Unremarkable. Lungs and Pleura: Minimal right effusion. Streaky opacities with there is somewhat more consolidative in appearance are present within the bases bilaterally, relatively unchanged compared to prior exam. Heart: Heart size is normal. No pericardial effusion. Thoracic Vessels: No aortic aneurysm. Mediastinum and [place]: No enlarged lymph nodes. Esophagus: No wall thickening. No hiatal hernia. Upper Abdomen: Visualized upper abdomen solid organs and bowel loops appear normal. IMPRESSION: No pulmonary embolus. Relatively unchanged with appearance of streaky/partial consolidative opacities within the bases. Dictated by: Juana Hopson M.D. on 03/16/2025 at 12:52 Approved by: Juana Hopson M.D. on 03/16/2025 at 12:55
[2025-03-16 13:11] LABS: Adenovirus Not Detected (Not Detect); B. parapertussis Not Detected (Not Detecte); Bordetella pertussis Not Detected (Not Detect); Chlamydophila pneumoniae Not Detected (Not Detect); Coronavirus 229E Not Detected (Not Detect); Coronavirus HKU1 Not Detected (Not Detect); Coronavirus NL 63 Not Detected (Not Detect); Coronavirus OC43 Not Detected (Not Detect); Human Metapneumovirus Not Detected (Not Detect); Human Rhinovirus/Enterovirus Detected (Not Detect); Influenza A Not Detected (Not Detect); Influenza B Not Detected (Not Detect); Mycoplasma pneumoniae Not Detected (Not Detect); Parainfluenza Virus 1 Not Detected (Not Detect); Parainfluenza Virus 2 Not Detected (Not Detect); Parainfluenza Virus 3 Not Detected (Not Detect); Parainfluenza Virus 4 Not Detected (Not Detect); Respiratory Syncytial Virus Not Detected (Not Detect); SARS- CoV-2 Not Detected (Not Detecte)
[2025-03-16 13:20] LABS: Appearance Urine UA SL CLOUDY; Bilirubin Urine UA 2+ (NEGATIVE); Color Urine UA YELLOW; Glucose Urine UA NEGATIVE (Negative); Ketones Urine UA NEGATIVE (NEGATIVE); Leukocyte Esterase Urine UA 3+ (NEGATIVE); Nitrite Urine UA NEGATIVE (Negative); Occult Blood Urine UA NEGATIVE (Negative); Protein Urine UA NEGATIVE (Negative); Specific Gravity Urine UA 1.015 (1.000-1.035)
[2025-03-16] MEDS: PIPERACILLIN/TAZO 4.5 GM in SODIUM CHLORIDE 0.9% 100 ML IV (13:21)
[2025-03-16 13:22] LABS: Ictotest Urine Negative (Negative)
[2025-03-16 13:23] LABS: Urine Volume 10mL (spun)
[2025-03-16 13:24] LABS: Bacteria Urine None Seen; Culture Indicated Urine Specimen Cultured; RBC Urine None Seen (0-5/HPF); Squamous Epithelial Cell Urine None Seen (0-5/HPF); WBC Urine 5-10/HPF (0-5/HPF)
[2025-03-16] MEDS: SODIUM CHLORIDE 0.9% 1,000 ML 100 ML IV (15:57)
--- NOTE | 2025-03-16 16:38 | PM.HP.1 ---
History of Present Illness History of Present Illness Chief complaint: Shortness of breath Narrative: The patient was a 59-year-old female with a history of muscular dystrophy. The patient presented today with an acute episode of shortness a breath and possible laryngospasm. Her daughter was admitted recently for hypoxemia secondary to rhino virus infection. The patient has been ill for the last week with similar symptoms. She ate lunch today and then about 10 minutes later had an acute episode of dyspnea, and a coughing episode. She was evaluated by EMS and brought to the emergency department. There she was given IV antibiotics for possible pneumonia. She has had intermittent cough which has been productive of phlegm and sputum for the past several days. She denies fevers, or chills. She was had some progressive weakness. She uses a wheelchair but is able to transfer to and from the wheelchair to her other activities including her living room chair and the commode. [facility] Medical History Myotonic dystrophy Cholelithiasis Cholecystitis Pneumonia Surgical History History of removal of ovarian cyst History of cholecystectomy Family History Mother COPD (chronic obstructive pulmonary disease) Daughter Muscular dystrophy, myotonic Father Muscular dystrophy, myotonic Social History household members: spouse and children Smoking Status: Never smoker alcohol intake: never Meds Home Medications and Allergies Home Medications Medication Instructions Recorded Confirmed Type No Known Home Medications 03/16/25 03/16/25 History Allergies Allergy/AdvReac Type Severity Reaction Status Date / Time No Known Drug Allergies Allergy Verified 02/25/22 19:18 Review of Systems Review of Systems Narrative: All else reviewed and otherwise unremarkable except as noted in the history and physical. Exam Vital Signs (past 8 hours): - 03/16/25 10:08 03/16/25 10:10 03/16/25 10:10 Temperature Pulse Rate 90 94 H Respiratory Rate Blood Pressure 149/81 H Pulse Oximetry 91 91 Oxygen Delivery Method Nasal Cannula Nasal Cannula Oxygen Flow Rate 3 3 03/16/25 10:15 03/16/25 10:30 03/16/25 10:30 Temperature 98.7 F Pulse Rate 68 86 Respiratory Rate 16 21 Blood Pressure 141/85 H 126/81 Pulse Oximetry 93 90 L Oxygen Delivery Method Room Air Nasal Cannula Oxygen Flow Rate 3 03/16/25 11:00 03/16/25 11:00 03/16/25 11:30 Temperature Pulse Rate 79 68 Respiratory Rate 18 Blood Pressure 112/83 Pulse Oximetry 90 L 94 Oxygen Delivery Method Oxygen Flow Rate 03/16/25 11:30 03/16/25 12:18 03/16/25 12:19 Temperature Pulse Rate 90 Respiratory Rate Blood Pressure 114/68 150/92 H Pulse Oximetry 92 Oxygen Delivery Method Oxygen Flow Rate 03/16/25 12:19 03/16/25 12:30 03/16/25 12:30 Temperature Pulse Rate 87 85 Respiratory Rate 30 H Blood Pressure 138/85 Pulse Oximetry 93 93 Oxygen Delivery Method Nasal Cannula Oxygen Flow Rate 3 03/16/25 13:00 03/16/25 13:00 03/16/25 13:30 Temperature Pulse Rate 87 Respiratory Rate 26 H Blood Pressure 120/74 121/70 Pulse Oximetry 91 Oxygen Delivery Method Oxygen Flow Rate 03/16/25 13:30 03/16/25 14:00 03/16/25 14:00 Temperature Pulse Rate 75 64 Respiratory Rate 27 H 18 Blood Pressure 109/70 Pulse Oximetry 92 95 Oxygen Delivery Method Oxygen Flow Rate 03/16/25 14:30 03/16/25 14:30 03/16/25 15:15 Temperature Pulse Rate 78 Respiratory Rate 36 H Blood Pressure 111/77 Pulse Oximetry 93 Oxygen Delivery Method Nasal Cannula Nasal Cannula Oxygen Flow Rate 3 03/16/25 15:40 Temperature 97.7 F Pulse Rate 61 Respiratory Rate 16 Blood Pressure 124/84 Pulse Oximetry 93 Oxygen Delivery Method Oxygen Flow Rate 3 Oxygen Delivery Method Nasal Cannula Oxygen Flow Rate 3 Narrative Exam Narrative: NAD, alert and oriented, fluent speech, calm. Normocephalic skull, EOMI, anicteric sclera, symmetric pupils. Oropharynx unremarkable, no droop. Neck supple, midline trachea, no adenopathy. Lungs clear, normal rate and effort. Heart regular, no murmur gallop or rub. Abdomen is soft, non distended and non tender. Extremities are free of edema. Skin is free of rash or lesions. Joints are not swollen or deformed. Judgment appears to be normal. Objective ECG Impression: Intervals [place] Rate: 90 P: 35 SD: 168 QRS: -55 QRSD: 164 T: 264 QT: 470 QTc: 574 Interpretive Statements Sinus rhythm with frequent premature ventricular complexes Right atrial enlargement Left axis deviation Right bundle branch block Minimal voltage criteria for LVH, may be normal variant ( R in aVL ) Septal infarct , age undetermined T wave abnormality, consider inferolateral ischemia Imaging Multiple studies: : Radiologist's impression: Chest CTA: No pulmonary embolus. Relatively unchanged with appearance of streaky/partial consolidative opacities within the bases. CXR: No acute pulmonary process. Labs 03/16/25 10:10 03/16/25 10:10 Labs: Laboratory Results - last 24 hr 03/16/25 03/16/25 03/16/25 10:10 10:30 12:50 WBC 4.8 RBC 5.08 Hgb 15.6 Hct 46.9 H MCV 92.3 MCH 30.8 MCHC 33.3 RDW 14.6 Plt Count 166 Neut % (Auto) 79.0 H Lymph % (Auto) 13.0 L [place] % (Auto) 6.0 Eos % (Auto) 1.4 L Baso % (Auto) 0.6 Neut # (Auto) 3800 Lymph # (Auto) 600 L [place] # (Auto) 300 Eos # (Auto) 100 Baso # (Auto) 0 PT 11.7 INR 1.0 APTT 34 Sodium 142 Potassium 4.3 Chloride 102 Carbon Dioxide 35 H BUN 17 Creatinine 0.37 L Estimated GFR > 60 BUN/Creatinine Ratio 45.9 H Glucose 125 H Lactate 1.7 Calcium 10.2 Total Bilirubin 1.0 AST 55 H ALT 39 H Alkaline Phosphatase 51 Total Creatine Kinase 71 Troponin I 0.018 NT-Pro-B Natriuret Pep 185 H Total Protein 7.3 Albumin 4.2 Globulin 3.1 Albumin/Globulin Ratio 1.4 Procalcitonin 0.059 Urine Color Yellow Urine Appearance Sl cloudy Urine pH 6.0 Ur Specific [place] 1.015 Urine Protein Negative Urine Glucose (UA) Negative Urine Ketones Negative Urine Occult Blood Negative Urine Nitrate Negative Urine Bilirubin 2+ H Ur Bilirubin Confirm Negative Urine Urobilinogen 1.0 Ur Leukocyte Esterase 3+ H Urine RBC None seen Urine WBC 5-10/hpf H Ur Squamous Epith Cells None seen Urine Bacteria None seen Ur Culture Indicated? Specimen cultured Vol Urine Centrifuged 10ml (spun) Chlamy pneumoniae PCR Not detected Adenovirus (PCR) Not detected B. pertussis DNA (PCR) Not detected B.parapertussis DNA PCR Not detected Coronavirus OC43 (PCR) Not detected Coronavirus HKU1 (PCR) Not detected Coronavirus 229E (PCR) Not detected SARS-CoV-2 (PCR) Not detected Coronavirus NL63 (PCR) Not detected Human Metapneumovir PCR Not detected Influenza Type A (PCR) Not detected Influenza Type B (PCR) Not detected M. pneumoniae (PCR) Not detected Parainfluenza 1 (PCR) Not detected Parainfluenza 2 (PCR) Not detected Parainfluenza 3 (PCR) Not detected Parainfluenza 4 (PCR) Not detected RSV (PCR) Not detected Entero/Rhino (PCR) Detected H Assessment & Plan Assessment & Plan narrative: 1. Possible laryngospasm, present on admission and active. 2. Possible pneumonia, present on admission and active. 3. Muscular dystrophy, present on admission and active. PLAN: -continue antibiotics -follow cultures -albuterol nebs as needed. -antitussive agents. Anticipate 1 midnight in the hospital, supports observation status. Time-Based Coding :: 35 min spent with patient and on the chart (including review of chart, obtaining history, exam, reviewing outside data, placing orders, documenting exam and treatment plan, and counseling patient) on 03/16. Quality VTE Deep Vein Thrombosis/Pulmonary Embolism Present on Admission: No MIPS - Admit The patient?s Advance Care plan is not present because I confirmed today that the patient does not wish or was not able to name a surrogate decision maker or provide an Advance Care Plan.: Yes MIPS - Meds 'Current medications' to include all prescriptions, [id number] products, herbals, cannabis/cannabidiol products, and vitamin/mineral/dietary (nutritional) supplements. I have utilized all available resources to obtain, update, or review the patient?s current medications. [If Yes, STOP here]: Yes
[2025-03-16] MEDS: ALBUTEROL 2.5 MG/3 ML NEB (ADULT) INH (17:11)
[2025-03-16] MEDS: PIPERACILLIN/TAZO 3.375 GM in SODIUM CHLORIDE 0.9% 100 ML IV (21:02)
[2025-03-16] MEDS: HEPARIN 5,000 UNIT/ML VIAL 5000 UNIT SUBCUT (21:03)
--- NOTE | 2025-03-16 21:16 | PC.WOUNDPHOT ---
Pt states had pressure sores when she first started using her wheelchair. States have since healed. Tissue is blanchable.
--- NOTE | 2025-03-16 23:05 | PC.NURSE ---
Pt alert and oriented, having difficulty clearing secretions, pt has suctioning set up at bedside, this nurse also spoke to retail shift manager MD and received an order for oral deep suctioning as needed. pt has history of muscular dystrophy. pt currently on 2L of oxygen, sating in the mid 90's. pt likes to sit up in bed 90 degrees for comfort, refusing waffle cushion. skin assessment was completed and picture of old healing PI to buttocks taken.
[2025-03-17] VITALS (11 sets, daily range): BP systolic 106–152; BP diastolic 72–100; PULSE 55–86; RESP 17–20; TEMP 36.3–36.9; O2SAT 90–98
[2025-03-17] MEDS: SODIUM CHLORIDE 0.9% 1,000 ML 100 ML IV (01:43)
[2025-03-17] MEDS: PIPERACILLIN/TAZO 3.375 GM in SODIUM CHLORIDE 0.9% 100 ML IV ×3 (04:09→21:16)
--- NOTE | 2025-03-17 07:08 | PM.PN.1 ---
Subjective Subjective Interval history: S: She was doing a little bit better. She was managing her secretions and was able to come off from oxygen with SaO2 of 90-92%. Denies any discomfort. Exam Vital Signs (past 8 hours): - 03/17/25 00:00 03/17/25 04:00 Temperature 97.9 F 97.4 F L Pulse Rate 55 L 63 Respiratory Rate 17 18 Blood Pressure 114/79 122/82 Pulse Oximetry 95 98 Oxygen Flow Rate 2 2 Oxygen Delivery Method Nasal Cannula Oxygen Flow Rate 2 Narrative Exam Narrative: NAD, alert and oriented. Fluent speech. Lungs are clear, normal rate and effort. Heart is regular, no murmur gallop or rub. Abdomen is soft, non distended. Extremities are free of edema. Objective Labs 03/16/25 10:10 03/16/25 10:10 Labs: Laboratory Results - last 24 hr 03/16/25 03/16/25 03/16/25 10:10 10:30 12:50 WBC 4.8 RBC 5.08 Hgb 15.6 Hct 46.9 H MCV 92.3 MCH 30.8 MCHC 33.3 RDW 14.6 Plt Count 166 Neut % (Auto) 79.0 H Lymph % (Auto) 13.0 L [place] % (Auto) 6.0 Eos % (Auto) 1.4 L Baso % (Auto) 0.6 Neut # (Auto) 3800 Lymph # (Auto) 600 L [place] # (Auto) 300 Eos # (Auto) 100 Baso # (Auto) 0 PT 11.7 INR 1.0 APTT 34 Sodium 142 Potassium 4.3 Chloride 102 Carbon Dioxide 35 H BUN 17 Creatinine 0.37 L Estimated GFR > 60 BUN/Creatinine Ratio 45.9 H Glucose 125 H Lactate 1.7 Calcium 10.2 Total Bilirubin 1.0 AST 55 H ALT 39 H Alkaline Phosphatase 51 Total Creatine Kinase 71 Troponin I 0.018 NT-Pro-B Natriuret Pep 185 H Total Protein 7.3 Albumin 4.2 Globulin 3.1 Albumin/Globulin Ratio 1.4 Procalcitonin 0.059 Urine Color Yellow Urine Appearance Sl cloudy Urine pH 6.0 Ur Specific [place] 1.015 Urine Protein Negative Urine Glucose (UA) Negative Urine Ketones Negative Urine Occult Blood Negative Urine Nitrate Negative Urine Bilirubin 2+ H Ur Bilirubin Confirm Negative Urine Urobilinogen 1.0 Ur Leukocyte Esterase 3+ H Urine RBC None seen Urine WBC 5-10/hpf H Ur Squamous Epith Cells None seen Urine Bacteria None seen Ur Culture Indicated? Specimen cultured Vol Urine Centrifuged 10ml (spun) Chlamy pneumoniae PCR Not detected Adenovirus (PCR) Not detected B. pertussis DNA (PCR) Not detected B.parapertussis DNA PCR Not detected Coronavirus OC43 (PCR) Not detected Coronavirus HKU1 (PCR) Not detected Coronavirus 229E (PCR) Not detected SARS-CoV-2 (PCR) Not detected Coronavirus NL63 (PCR) Not detected Human Metapneumovir PCR Not detected Influenza Type A (PCR) Not detected Influenza Type B (PCR) Not detected M. pneumoniae (PCR) Not detected Parainfluenza 1 (PCR) Not detected Parainfluenza 2 (PCR) Not detected Parainfluenza 3 (PCR) Not detected Parainfluenza 4 (PCR) Not detected RSV (PCR) Not detected Entero/Rhino (PCR) Detected H PFSH Medical History Myotonic dystrophy Cholelithiasis Cholecystitis Pneumonia Surgical History History of removal of ovarian cyst History of cholecystectomy Family History Mother COPD (chronic obstructive pulmonary disease) Daughter Muscular dystrophy, myotonic Father Muscular dystrophy, myotonic Social History household members: spouse and children Smoking Status: Never smoker alcohol intake: never Assessment & Plan Assessment & Plan narrative: 1. Possible laryngospasm, present on admission and active. 2. Possible pneumonia, present on admission and active. 3. Muscular dystrophy, present on admission and active. PLAN: -continue antibiotics -weaned off O2. -possible discharge this afternoon Time-Based Coding :: [TOTAL MINUTES] spent with patient and on the chart (including review of chart, obtaining history, exam, reviewing outside data, placing orders, documenting exam and treatment plan, and counseling patient) on [DATE]. Quality VTE Deep Vein Thrombosis/Pulmonary Embolism Present on Admission: No
[2025-03-17] MEDS: HEPARIN 5,000 UNIT/ML VIAL 5000 UNIT SUBCUT ×2 (09:39→21:16)
--- NOTE | 2025-03-17 13:16 | CM.DANOTE ---
Patient is a 59 yo female who was admitted OBS Status on 03/16/25 for SOB. Pt has [employer] for insurance and her PCP is at [facility]. EMR was reviewed. Per , pt with hx of Myotonic Dystrophy and admitted for pneumonia and Rhinovirus. Pt was weaned off oxygen to room air and getting breathing treatments and slowly improving and getting IV abx. Possible d/c home later today or likely tomorrow. 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 Pt is w/c bound at baseline but self transfers and is independent with her ADLs. Pt confirms her spouse is her POA. Pt denies any hx of HH or SNF but states when she or her Dtr have been discharged from the hospital before there was HH set up but they never ended up calling or coming to the home. PCP is at [facility] and pt states her Provider recently moved and she has not met her new Provider at the clinic yet as she has not had any medical reason to go to the doctor until the admission. Pt states she feels weaker than baseline with the pneumonia and Rhinovirus but unsure if she needs PT/OT eval while admitted. Pt wants to wait to see how she feels tomorrow to see if she is closer to her baseline. Pt preference is to d/c home via spouse POV when medically stable and currently does not anticipate any needs at d/c. Plan: SW to follow closely tomorrow to r/o any PT/OT eval needs and r/o HH at discharge. ALCIRA Self Discharge Planning/Care Management CM Discharge Assessment Start: 03/16/25 14:28 Freq: Status: Active Protocol: Document 03/17/25 13:13 BF (Rec: 03/17/25 13:15 BF [id number]) Discharge Planning Assessment Assigned Emission Specialist ALCIRA Segura DPOA/Assigned Designee Name spouse Jimy Contact Information [phone] Advance Directives? No Advance Directives on File No History Provided By Patient,Family Member,Medical Record Has Patient been admitted in last 30 No days? Prior Living Arrangements House Household Members spouse,children Comment Lives with spouse and their adult Dtr with the same genetic dx Type of transporation used prior to Relies on Others admit Independent with ADL's Yes Is patient alert and oriented? Yes Needs Assistance With Home Chores / Shopping Caregiver for Another Yes: adult Dtr with same genetic dx DME Already Rented / Owned Bath Bench,Wheelchair,Elevated Toilet Seat Comment Patient has all needed DME in the residence. Comment r/o HH closer to d/c Barriers to Discharge No Comment Patient and spouse would like to return home when medically stable. Discharge Plan Home Transportation Arrangement Spouse Additional Comment Continue to follow closely, r/ o any PT/OT needs Whiteboard Updated in Patient Room with Yes name and ext. # of Emission Specialist Review Status In Process Please Provide Date Initial DC 03/17/25 Assessment Was Performed Next Review Type Continued Stay Review
[2025-03-17] MEDS: guaiFENesin Solution 100 MG/5 ML UDC 200 MG PO (13:45)
[2025-03-18] VITALS: BP 114/72; PULSE 59; RESP 19; TEMP 36.6; O2SAT 94
[2025-03-18 03:00] VITALS: O2SAT 94
[2025-03-18 04:00] VITALS: BP 125/87; PULSE 68; RESP 17; TEMP 36.7; O2SAT 96
[2025-03-18] MEDS: PIPERACILLIN/TAZO 3.375 GM in SODIUM CHLORIDE 0.9% 100 ML IV (05:38)
[2025-03-18 07:00] VITALS: O2SAT 96
[2025-03-18 08:00] VITALS: BP 105/74; PULSE 71; RESP 18; TEMP 36.4; O2SAT 92
[2025-03-18] MEDS: guaiFENesin Solution 100 MG/5 ML UDC 200 MG PO (09:24)
[2025-03-18] MEDS: HEPARIN 5,000 UNIT/ML VIAL 5000 UNIT SUBCUT (09:26)
--- NOTE | 2025-03-18 10:24 | PM.DS.1 ---
History of Present Illness History of Present Illness Chief complaint: Shortness of breath Narrative: The patient was a 59-year-old female with a history of muscular dystrophy. The patient presented today with an acute episode of shortness a breath and possible laryngospasm. Her daughter was admitted recently for hypoxemia secondary to rhino virus infection. The patient has been ill for the last week with similar symptoms. She ate lunch today and then about 10 minutes later had an acute episode of dyspnea, and a coughing episode. She was evaluated by EMS and brought to the emergency department. There she was given IV antibiotics for possible pneumonia. She has had intermittent cough which has been productive of phlegm and sputum for the past several days. She denies fevers, or chills. She was had some progressive weakness. She uses a wheelchair but is able to transfer to and from the wheelchair to her other activities including her living room chair and the commode. Discharge Providers Provider Date of admission: 03/16/25 14:25 Discharge Date: 03/18/25 Consults: None. Discharge provider: Gilbert Thomas MD Summary Hospital Course Discharge Diagnosis: 1. Possible laryngospasm, present on admission and improved. 2. Possible pneumonia, present on admission and improved. 3. Muscular dystrophy, present on admission and active. 4. Rinovirus URI, present on admission and active. 5. Acute hypoxic respiratory failure, present on admission and improved. Hospital Course: Patient was a 59-year-old female with a MD who was admitted with laryngospasm, rhino virus URI, possible pneumonia, and acute hypoxic respiratory failure. She was treated with oxygen, bronchodilators, pulmonary toilet, and antibiotics. She improved to her baseline oxygenation of SaO2 90% on room air. Her cough improved and her secretions improved. She was felt to be stable for discharge on March 18 without oxygen. She will use incentive spirometer at home. Status at Discharge Cognitive/behavioral status at discharge: oriented Functional status at discharge: uses cane/walker Overall status at discharge: patient is progressing back to baseline Time Spent with Patient Time spent: Greater than 30 minutes Exam Vital Signs (past 8 hours): - 03/18/25 03:00 03/18/25 04:00 03/18/25 07:00 Temperature 98.0 F Pulse Rate 68 Respiratory Rate 17 Blood Pressure 125/87 Pulse Oximetry 94 96 96 Oxygen Delivery Method Nasal Cannula Nasal Cannula Oxygen Flow Rate 3 2 1 Oxygen Delivery Method Nasal Cannula Oxygen Flow Rate 1 Narrative Exam Narrative: NAD, alert and oriented. Fluent speech. Lungs are clear, normal rate and effort. Heart is regular, no murmur gallop or rub. Abdomen is soft, non distended. Extremities are free of edema. Objective ECG Impression: Impression: Intervals [place] Rate: 90 P: 35 [place]: 168 QRS: -55 QRSD: 164 T: 264 QT: 470 QTc: 574 Interpretive Statements Sinus rhythm with frequent premature ventricular complexes Right atrial enlargement Left axis deviation Right bundle branch block Minimal voltage criteria for LVH, may be normal variant ( R in aVL ) Septal infarct , age undetermined T wave abnormality, consider inferolateral ischemia Imaging Multiple studies:: Radiologist's impression: Chest CTA: No pulmonary embolus. Relatively unchanged with appearance of streaky/partial consolidative opacities within the bases. CXR: No acute pulmonary process. Labs 03/16/25 10:10 03/16/25 10:10 [facility] Medical History Myotonic dystrophy Cholelithiasis Cholecystitis Pneumonia Surgical History History of removal of ovarian cyst History of cholecystectomy Family History Mother COPD (chronic obstructive pulmonary disease) Daughter Muscular dystrophy, myotonic Father Muscular dystrophy, myotonic Social History household members: spouse and children Smoking Status: Never smoker alcohol intake: never Discharge Assessment & Plan Assessment and Plan Assessment: 1. Possible laryngospasm, present on admission and improved. 2. Possible pneumonia, present on admission and improved. 3. Muscular dystrophy, present on admission and active. 4. Rinovirus URI, present on admission and active. 5. Acute hypoxic respiratory failure, present on admission and improved. Plan of Treatment: Stable for discharge home, we will complete 5 additional days of doxycycline b.i.d. and follow up with PCP. Knows to come back for fevers, chills, difficulty breathing, or decreased SaO2. She was an oximeter at home. Discharge Plan Discharge Plan Patient Disposition: Home Provider Discharge Comment: Improved, stable for discharge home. SaO2 90% room air which is about her baseline. She feels improved and comfortable about going home. Discharge orders & Medications Prescriptions: New doxycycline monohydrate 100 mg capsule 100 mg PO BID Qty: 10 0RF Discharge Health Status Multidrug resistant organism: No MDRO Diet/Activity/Treatments Diet: Regular Visit Report/Discharge Packet Instructions: DI for Pneumonia -- Adult Stand Alone Forms: Patient Portal/API Discharge Data Attending Provider: Gilbert Thomas Admit Date/Time: 03/16/25 14:25 Quality VTE Deep Vein Thrombosis/Pulmonary Embolism Present on Admission: No
[2025-03-18 11:00] VITALS: O2SAT 90
--- NOTE | 2025-03-18 12:01 | PC.NURSE ---
Addendum entered by Gilda Morales R.N. 03/18/25 12:12: Patient escorted to Emergency exit waiting area, requesting to wait for to be able to arrive and transport her with w/ w/ch accesisible van. Original Note: Patient is A&OX4, VSS afebrile on 1 LNC this a.m. Her 02 saturation was 96% on RA. She is encouraged to use IS, currently 10 x reaching 300-400 on IS. She has a weak productive cough but is able to keep 02 saturation at 90% on RA this a.m. MD at bedside evaluating patient and cleared her medically for discharge home today with . She verbalizes understanding of medications, and returning to the ED if worsening symtoms. She is escorted via w/ch by TELEPHONE OPERATOR to private vehicle today at noon for discharge home with her .
== END 2025-03-18 12:00 | disposition home or self-care (01) ==
LOC: ED 10:31 → AC 14:26
PROVIDERS: Admitting Provider Hospitalist; Emergency Provider Emergency Medicine; Visit Provider Hospitalist
DX: J96.01 Acute respiratory failure with hypoxia (principal); J06.9 Acute upper respiratory infection, unspecified; B97.89 Other viral agents as the cause of diseases classified elsewhere; G35 Multiple sclerosis; Z11.52 Encounter for screening for COVID-19
CPT/HCPCS: 71045; 71275; 80053; 81001; 82550; 83605; 83880; 84145; 84484; 85025; 85610; 85730; 87040; 87070; 87086; 87205; 87633; 93005; 93010; 94640; 94762; 96361; 96365; 96366; 96372; 99284; G0378; J1644; J2543; J7613; Q9967